=== PATIENT | male | born 1965 | race Caucasian/White ===

== ENCOUNTER 2020-01-17 11:11 | Inpatient (IN) | payer MEDICARE ==
--- NOTE | 2020-01-17 11:19 | ERPHSYRPT ---
- History of Present Illness Time Seen by Provider: 01/17/20 11:19 Historian: patient Exam Limitations: clinical condition Physician History: This is a 54-year-old white male patient with a history of cerebral palsy arrhythmia coronary disease multiple orthopedic procedures and history of ileus in the past. He has frequent fecal stasis as well. Patient states that he was fine until this morning when he began having sudden onset of abdominal pain with retching and vomiting. Patient was seen approximately 9 days ago at [facility]. Symptoms were similar. Patient was found to have a partial distal small bowel obstruction. The appendix and gallbladder within normal limits on the CAT scan dated 01/08/2020 at that facility. Patient's symptoms resolved with nasogastric tube decompression and bowel rest. Patient does self catheterize himself. Patient was also diagnosed with a urinary tract infection at time and has been taking Cipro for that urinary tract infection. Timing/Duration: today Activities at Onset: none Quality: cramping Abdominal Pain Onset Location: generalized abdomen Pain Radiation: no radiation Severity of Pain-Max: moderate Severity of Pain-Current: moderate Modifying Factors: Improves With: vomiting Associated Symptoms: nausea, vomiting Previous symptoms: same symptoms as today, recently seen, recent hospitalization, recently treated Allergies/Adverse Reactions: diazepam [From Valium] Allergy (Verified 01/17/20 11:46) Penicillins Allergy (Verified 01/17/20 11:46) Home Medications: Sulfamethoxazole/Trimethoprim [Bactrim Ds Tablet] 0.5 each PO BID 11/26/13 [History] Mirabegron [Myrbetriq] 50 mg PO DAILY 11/27/13 [History] Desmopressin Acetate [Ddavp] 0.2 mg PO HS 01/17/20 [History] Omeprazole 40 mg PO DAILY 01/17/20 [History] Solifenacin Succinate 10 mg PO DAILY 01/17/20 [History] Spironolactone 25 mg PO DAILY 01/17/20 [History] Tamsulosin HCl 0.4 mg PO DAILY 01/17/20 [History] Tizanidine HCl 4 mg PO DAILY 01/17/20 [History] Hx Tetanus, Diphtheria Vaccination/Date Given: Yes Hx Influenza Vaccination/Date Given: No Hx Pneumococcal Vaccination/Date Given: No Travel Risk - International Travel Have you traveled outside of the country in past 3 weeks: No - Coronavirus Screening Are you exhibiting any of the following symptoms?: No Close contact with a COVID-19 positive Pt in past 14-21 Days: No - Review of Systems Constitutional: No Symptoms Eyes: No Symptoms Ears, Nose, & Throat: No Symptoms Respiratory: No Symptoms Cardiac: No Symptoms Abdominal/Gastrointestinal: Abdominal Pain, Vomiting Genitourinary Symptoms: No Symptoms Musculoskeletal: No Symptoms Skin: No Symptoms Neurological: No Symptoms Psychological: No Symptoms Endocrine: No Symptoms Hematologic/Lymphatic: No Symptoms Immunological/Allergic: No Symptoms All Other Systems: Reviewed and Negative - Past Medical History Neurological History: Migraines, Seizures ENT History: Glaucoma Cardiac History: Arrhythmia, Myocardial Infarction ([place]) Respiratory History: Pneumonia Endocrine Medical History: No Pertinent History Musculoskeletal History: Arthritis GI Medical History: Esophageal Disorder, GERD, Ulcer History: Other Psycho-Social History: Anxiety, Depression, Panic Disorder Male Reproductive Disorders: Prostate Problems Other Medical History: cerabral palsy, diff urinating - Past Surgical History Past Surgical History: Yes Neuro Surgical History: No Pertinent History Cardiac: No Pertinent History Respiratory: No Pertinent History Gastrointestinal: No Pertinent History Genitourinary: No Pertinent History Musculoskeletal: Orthopedic Surgery Male Surgical History: No Pertinent History Other Surgical History: 49 corrective surgeries, 5 hip surgergies,legs feet ankles rt hand surgeries,tonsils - Social History Smoking Status: Never smoker Exposure to second hand smoke: Yes Drug Use: none Patient Lives Alone: Yes - Nursing Vital Signs Nursing Vital Signs: Initial Vital Signs Temperature 98.1 F 01/17/20 11:25 Pulse Rate 84 01/17/20 11:25 Blood Pressure 140/112 01/17/20 11:25 O2 Sat by Pulse Oximetry 94 L 01/17/20 11:25 Pain Scale Pain Intensity 8 - Physical Exam General Appearance: moderate distress, alert, anxiety Eye Exam: PERRL/EOMI, eyes nml inspection Ears, Nose, Throat Exam: normal ENT inspection, moist mucous membranes Neck Exam: normal inspection, non-tender, supple, full range of motion Respiratory Exam: normal breath sounds, lungs clear, airway intact, No chest tenderness, No respiratory distress Cardiovascular Exam: regular rate/rhythm, normal heart sounds, normal peripheral pulses Gastrointestinal/Abdomen Exam: soft, normal bowel sounds, No tenderness Rectal Exam: not done Back Exam: normal inspection, normal range of motion, No CVA tenderness, No vertebral tenderness Extremity Exam: normal inspection, normal range of motion, pelvis stable Neurologic Exam: alert, oriented x 3, cooperative, 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 tested Skin Exam: normal color, warm, dry Lymphatic Exam: adenopathy SpO2 Interpretation: normal - Course Nursing assessment & vital signs reviewed: Yes Ordered Tests: Active Orders 24 hr Category Date Time Status IV Insertion STAT Care 01/17/20 11:30 Active NG to Suction (Insertion) ROUTINE Care 01/17/20 11:39 Active ABDOMEN AND PELVIS W/0 CONTRAS [CT] Stat Exams 01/17/20 11:39 Completed AMYLASE Stat Lab 01/17/20 11:30 Completed CBC W DIFF Stat Lab 01/17/20 11:30 Completed CMP Stat Lab 01/17/20 11:30 Completed CULTURE,URINE Stat Lab 01/17/20 12:33 Received LIPASE Stat Lab 01/17/20 11:30 Completed Lactic Acid Stat Lab 01/17/20 11:30 Completed Lactic Acid Stat Lab 01/17/20 13:42 Received UA W/RFX UR CULTURE Stat Lab 01/17/20 12:33 Completed Transfer Order Routine Transfer 01/17/20 Ordered Medication Summary Discontinued Medications Generic Name Dose Route Start Last Admin Trade Name Freq PRN Reason Stop Dose Admin Famotidine 40 mg 01/17/20 11:30 01/17/20 11:47 Pepcid 20 Mg Vial IV 01/17/20 11:31 40 mg STAT ONE Administration Famotidine Confirm 01/17/20 11:42 Pepcid 20 Mg Vial Administered 01/17/20 11:43 Dose 40 mg IV .STK-MED ONE Sodium Chloride 1,000 mls @ 999 mls/hr 01/17/20 11:30 01/17/20 12:56 Sodium Chloride 0.9% 1000 Ml IV 01/17/20 12:30 Infused .Q1H1M STA Infusion Sodium Chloride Confirm 01/17/20 11:42 Sodium Chloride 0.9% 1000 Ml Administered 01/17/20 11:43 Dose 1,000 mls @ ud .ROUTE .STK-MED ONE Ondansetron HCl 4 mg 01/17/20 11:30 01/17/20 11:46 Zofran 4 Mg/2 Ml Vial IV 01/17/20 11:31 4 mg STAT ONE Administration Ondansetron HCl Confirm 01/17/20 11:42 Zofran 4 Mg/2 Ml Vial Administered 01/17/20 11:43 Dose 4 mg .ROUTE .STK-MED ONE Lab/Rad Data: Laboratory Result Diagrams 01/17/20 11:30 01/17/20 11:30 Laboratory Results 01/17/20 01/17/20 01/17/20 Range/Units 12:33 11:30 11:30 WBC (4.0-10.5) K/mm3 RBC (4.1-5.6) M/mm3 Hgb (12.5-18.0) gm/dl Hct (42-50) % MCV (78-100) fl MCH (26-32) pg MCHC (32-36) g/dl RDW (11.5-14.0) % Plt Count (150-450) K/mm3 MPV (7.5-11.0) fl Gran % (36.0-66.0) % Eos # (Auto) (0-0.5) Absolute Lymphs (auto) (1.0-4.6) Absolute Monos (auto) (0.0-1.3) Lymphocytes % (24.0-44.0) % Monocytes % (0.0-12.0) % Eosinophils % (0.00-5.0) % Basophils % (0.0-0.4) % Absolute Granulocytes (1.4-6.9) Basophils # (0-0.4) Sodium 134 L (137-145) mmol/L Potassium 5.1 (3.5-5.1) mmol/L Chloride 106 (98-107) mmol/L Carbon Dioxide 17 L (22-30) mmol/L Anion Gap 16.1 H (5-15) MEQ/L BUN 20 (9-20) mg/dL Creatinine 0.96 (0.66-1.25) mg/dL Estimated GFR > 60.0 ML/MIN Glucose 125 H (74-106) mg/dL Lactic Acid 3.5 H (0.4-2.0) Calcium 9.6 (8.4-10.2) mg/dL Total Bilirubin 0.60 (0.2-1.3) mg/dL AST 31 (17-59) U/L ALT 15 (0-50) U/L Alkaline Phosphatase 65 (38-126) U/L Serum Total Protein 8.2 (6.3-8.2) g/dL Albumin 4.9 (3.5-5.0) g/dL Amylase 51 (30-110) U/L Lipase 12 L (23-300) U/L Urine Color YELLOW (YELLOW) Urine Appearance SLIGHTLY CLOUDY (CLEAR) Urine pH 5.0 (5-6) Ur Specific [place] 1.026 (1.005-1.025) Urine Protein 30 (Negative) Urine Ketones TRACE (NEGATIVE) Urine Blood NEGATIVE (0-5) [place]/ul Urine Nitrite NEGATIVE (NEGATIVE) Urine Bilirubin NEGATIVE (NEGATIVE) Urine Urobilinogen 2 (0-1) mg/dL Ur Leukocyte Esterase SMALL (NEGATIVE) Urine WBC (Auto) 11-15 (0-5) /HPF Urine RBC (Auto) NONE (0-2) /HPF U Epithel Cells (Auto) NONE (FEW) /HPF Urine Bacteria (Auto) RARE (NEGATIVE) /HPF Urine Mucus (Auto) SLIGHT (NEGATIVE) /HPF Urine Culture Reflexed YES (NO) Urine Glucose NEGATIVE (NEGATIVE) mg/dL 01/17/20 Range/Units 11:30 WBC 9.7 (4.0-10.5) K/mm3 RBC 4.96 (4.1-5.6) M/mm3 Hgb 15.4 (12.5-18.0) gm/dl Hct 46.1 (42-50) % MCV 92.9 (78-100) fl MCH 31.0 (26-32) pg MCHC 33.4 (32-36) g/dl RDW 13.5 (11.5-14.0) % Plt Count 246 (150-450) K/mm3 MPV 12.4 H (7.5-11.0) fl Gran % 87.0 H (36.0-66.0) % Eos # (Auto) 0.01 (0-0.5) Absolute Lymphs (auto) 0.80 L (1.0-4.6) Absolute Monos (auto) 0.42 (0.0-1.3) Lymphocytes % 8.2 L (24.0-44.0) % Monocytes % 4.3 (0.0-12.0) % Eosinophils % 0.1 (0.00-5.0) % Basophils % 0.4 (0.0-0.4) % Absolute Granulocytes 8.46 H (1.4-6.9) Basophils # 0.04 (0-0.4) Sodium (137-145) mmol/L Potassium (3.5-5.1) mmol/L Chloride (98-107) mmol/L Carbon Dioxide (22-30) mmol/L Anion Gap (5-15) MEQ/L BUN (9-20) mg/dL Creatinine (0.66-1.25) mg/dL Estimated GFR ML/MIN Glucose (74-106) mg/dL Lactic Acid (0.4-2.0) Calcium (8.4-10.2) mg/dL Total Bilirubin (0.2-1.3) mg/dL AST (17-59) U/L ALT (0-50) U/L Alkaline Phosphatase (38-126) U/L Serum Total Protein (6.3-8.2) g/dL Albumin (3.5-5.0) g/dL Amylase (30-110) U/L Lipase (23-300) U/L Urine Color (YELLOW) Urine Appearance (CLEAR) Urine pH (5-6) Ur Specific [place] (1.005-1.025) Urine Protein (Negative) Urine Ketones (NEGATIVE) Urine Blood (0-5) [place]/ul Urine Nitrite (NEGATIVE) Urine Bilirubin (NEGATIVE) Urine Urobilinogen (0-1) mg/dL Ur Leukocyte Esterase (NEGATIVE) Urine WBC (Auto) (0-5) /HPF Urine RBC (Auto) (0-2) /HPF U Epithel Cells (Auto) (FEW) /HPF Urine Bacteria (Auto) (NEGATIVE) /HPF Urine Mucus (Auto) (NEGATIVE) /HPF Urine Culture Reflexed (NO) Urine Glucose (NEGATIVE) mg/dL - Progress Progress: improved, pain not gone completely, re-examined Progress Note: 01/17/20 13:43 CAT scan of the abdomen and pelvis shows abundant colonic stool consistent with constipation. Medical screening exam: This patient has been seen in the emergency department twice in the last 8 to 10 days requiring a hospitalization January 07 through January 09. Symptoms are the same including intractable vomiting and partial small bowel obstruction. CAT scan today does not show any obstruction per se but is effectively, partially obstructed with an abundant amount of colonic stool consistent with constipation. Patient will be admitted to Dr. Styles. I discussed the patient history, condition, physical findings, laboratory work-up and x-ray findings with him. Patient will be admitted with NG tube to low intermittent wall suction, IV hydration soapsuds enemas and antiemetics. Counseled pt/family regarding: lab results, diagnosis, rad results - Departure Departure Disposition: In-patient Admission Clinical Impression: Ileus, Constipation, Intractable vomiting Condition: Stable Critical Care Time: No Referrals: BRAIN CRUZ MD [ACTIVE STAFF] -
[2020-01-17] MEDS ORDERED: Sodium Chloride 0.9% 1000 ML 1,000 ML IV STA (11:30)
[2020-01-17] MEDS ORDERED: Zofran 4 MG/2 ML VIAL IV ONE (11:30)
[2020-01-17] MEDS ORDERED: Pepcid 20 MG VIAL IV ONE ×2 (11:30→11:42)
[2020-01-17 11:42] LABS: Absolute Neutrophil Ct (ANC) 8.46 (1.4-6.9); BASOPHIL % 0.4 % (0.0-0.4); Basophil (Absolute #) 0.04 (0-0.4); Eosinophil % 0.1 % (0.00-5.0); Eosinophil (Absolute #) 0.01 (0-0.5); Hematocrit 46.1 % (42-50); Hemoglobin 15.4 gm/dl (12.5-18.0); Lymphocytes % 8.2 % (24.0-44.0); Mean Cell Volume 92.9 fl (78-100); Mean Corpuscular Hgb Concent. 33.4 g/dl (32-36); Mean Platelet Volume 12.4 fl (7.5-11.0); Monocyte (Absolute #) 0.42 (0.0-1.3); Monocytes % 4.3 % (0.0-12.0); Platelet Count 246 K/mm3 (150-450); Red Blood Count 4.96 M/mm3 (4.1-5.6); Red Cell Distribution Width 13.5 % (11.5-14.0); White Blood Count 9.7 K/mm3 (4.0-10.5)
[2020-01-17] MEDS ORDERED: Sodium Chloride 0.9% 1000 ML 1,000 ML ONE (11:42)
[2020-01-17] MEDS ORDERED: Zofran 4 MG/2 ML VIAL ONE (11:42)
[2020-01-17 11:55] LABS: ALBUMIN 4.9 g/dL (3.5-5.0); ALKALINE PHOSPHATASE 65 U/L (38-126); AMYLASE 51 U/L (30-110); ANION GAP 16.1 MEQ/L (5-15); BLOOD UREA NITROGEN 20 mg/dL (9-20); CHLORIDE 106 mmol/L (98-107); Calcium 9.6 mg/dL (8.4-10.2); Carbon Dioxide 17 mmol/L (22-30); Creatinine 1 0.96 mg/dL (0.66-1.25); EST GLOMERULAR FILTRATION RATE > 60.0 ML/MIN; Glucose 125 mg/dL (74-106); LIPASE 12 U/L (23-300); SGOT/AST 31 U/L (17-59); SGPT/ALT 15 U/L (0-50); SODIUM 134 mmol/L (137-145); Total Protein 8.2 g/dL (6.3-8.2)
[2020-01-17 11:57] LABS: Potassium 5.1 mmol/L (3.5-5.1)
[2020-01-17 12:43] LABS: Appearance SLIGHTLY CLOUDY (CLEAR); Bacteria RARE /HPF (NEGATIVE); Bilirubin NEGATIVE (NEGATIVE); Blood NEGATIVE Ery/ul (0-5); Glucose NEGATIVE (NEGATIVE); Ketones TRACE (NEGATIVE); Leukocyte Esterase SMALL (NEGATIVE); Mucus SLIGHT /HPF (NEGATIVE); Nitrite NEGATIVE (NEGATIVE); Protein,Urine Dip 30 (Negative); Specific Gravity 1.026 (1.005-1.025); Urobilinogen 2 mg/dL (0-1)
--- NOTE | 2020-01-17 12:52 | XRAY ---
Exam: CT of the abdomen and pelvis without IV contrast from 01/17/2020. CTDI: 5.09 mGy Comparison: CT of the abdomen and pelvis without IV contrast from 12/15/2010. Indication: 54-year-old male with intractable vomiting. Technique: Non-IV contrast axial images were obtained through the abdomen and pelvis. Reconstructed coronal and sagittal images were created and reviewed. Evidently, patient could not move his right arm. His right arm is down by his side with his elbow flexed such that his forearm, wrist, and hand transverse the upper aspect of the abdomen. Findings: The lung bases appear grossly clear. Minimal posterior dependent atelectatic changes are seen. Assessment of the solid organs is limited without the use of IV contrast. The liver is of normal size and reveals no definite mass or intrahepatic biliary duct distention. The gallbladder is mildly distended and reveals no dense calcifications within it. The spleen is remarkable for a few scattered calcified granulomas. No splenomegaly or splenic mass is seen. The pancreas appears diffusely atrophic. This appears to be new from 12/15/2010. The adrenal glands appear unremarkable. The kidneys are remarkable for a nonobstructing punctate stone within the upper pole of the left kidney on axial images #19 and #20. No other definite renal calculi or hydronephrosis is seen. No definite renal mass is seen. The ureters are of normal diameter and reveal no evidence of ureterolith. No urinary bladder stone is seen. The abdominal aorta appears of normal diameter. No abdominal aortic aneurysm is seen. No abnormal retroperitoneal lymphadenopathy is seen. The abdomen appears mildly protuberant. Mild motion artifact is seen in some of the images through the upper abdomen. No bowel containing ventral hernia or free intraperitoneal air is seen. Scattered stool is seen throughout the colon, the largest amount noted within the rectal vault. This is suggestive of constipation. No bowel obstruction is seen. I see no findings of appendicitis within the right lower quadrant. There is no free intraperitoneal fluid. A large fat-containing right inguinal hernia is seen which appears to be largely new from 12/15/2010. This measures about 3.8 cm in width on axial image #67. The urinary bladder appears unremarkable. No enlarged pelvic lymph nodes are seen. The seminal vesicles are normal. The prostate gland is mildly prominent measuring about 5.0 cm in width. The skeleton reveals no acute fracture or aggressive bone lesion. There is slight convexity of the upper lumbar spine toward the right. The sagittal images reveal bilateral spondylolysis at L5 with only slight anterior subluxation of L5 over S1. The lumbar interspace heights are well-maintained. Impression: 1. Abundant colonic stool is seen consistent with constipation. The largest amount of stool is seen within the rectal vault which measures 4.8 cm in width on axial image #62. I do not see any findings of bowel obstruction, free intraperitoneal air, or free intraperitoneal fluid. 2. There appears to be some mild diffuse atrophy of the pancreas. Correlate clinically. 3. Stable punctate stone within the upper pole of the left kidney without evidence of obstructive uropathy. The ureters and urinary bladder appear unremarkable. 4. There is at least a moderate-sized fat-containing right inguinal hernia which is new. No bowel containing hernia is seen. 5. The prostate gland appears borderline enlarged. 6. Bilateral spondylolysis of L5 with only minimal anterior subluxation of L5 over S1. 7. No other acute process is seen within the abdomen or pelvis.
--- NOTE | 2020-01-17 14:56 | XRAY ---
Exam: AP upright portable chest film from 01/17/2020. Comparison: AP portable chest film from 04/25/2012. Indication: 54-year-old male with NG tube placement. Findings: NG tube is seen with the tip pointing inferiorly against the greater curvature aspect of the distal body/proximal antrum of the stomach. The gap marker is projected over the gastric air bubble. The transverse heart size appears normal. The lungs are adequately inflated. I cannot exclude some minimal plate atelectasis at the right lung base. Otherwise, the lung anderson appear clear. No pneumothorax, vascular congestion, or pleural fluid is seen. No acute osseous process is seen. There is mild elevation of the humeral head of each shoulder with respect to each glenoid, more on the right than left. Consider chronic rotator cuff disease. Impression: 1. NG tube has been placed with the tip pointing inferiorly against the greater curvature aspect of the stomach. The gap marker of the distal NG tube is projected over the gastric air shadow as well. This would appear to be in satisfactory position. 2. No acute cardiopulmonary disease is seen.
[2020-01-17] MEDS ORDERED: FEVERALL 650 MG PR PRN (15:16)
[2020-01-17] MEDS ORDERED: Zofran 4 MG/2 ML VIAL IV PRN (15:16)
--- NOTE | 2020-01-17 16:38 | XRAY ---
Exam: AP portable chest film from 3:51 PM on 01/17/2020. Comparison: AP portable chest film from 01/17/2020. Indication: NG tube placement check. Findings: The NG tube has been advanced. The NG tube reveals 3 separate loops within the stomach lumen. The NG tube tip is pointing distally along the greater curvature aspect of the antrum of the stomach. The heart size is normal. The lung anderson are essentially clear. There is mild convexity of the thoracolumbar junction toward the right. Some colonic stool is seen within the right upper quadrant. The overall visualized bowel gas pattern is nonspecific. Impression: 1. The NG tube has been advanced. 3 separate loops of the NG tube within the stomach are seen with the tip pointing distally along the greater curvature aspect of the antrum of the stomach. 2. No acute cardiopulmonary disease is seen.
[2020-01-17] MEDS: Sodium Chloride 0.9% 1000 ML 1,000 ML IV SCH (16:48)
[2020-01-17] MEDS ORDERED: Phenergan 25 MG INJ IV PRN (16:49)
[2020-01-17] MEDS ORDERED: Sodium Chloride 0.9% 500 ML 500 ML IV ONE (19:59)
[2020-01-17] MEDS ORDERED: Levofloxacin 500MG/100ML D5W 500 MG/100 ML BAG IV SCH (22:00)
[2020-01-18] MEDS: Sodium Chloride 0.9% 1000 ML 1,000 ML IV SCH (00:16)
[2020-01-18 06:05] LABS: Hematocrit 42.1 % (42-50); Hemoglobin 13.8 gm/dl (12.5-18.0); Mean Cell Volume 94.6 fl (78-100); Mean Corpuscular Hgb Concent. 32.8 g/dl (32-36); Mean Platelet Volume 12.3 fl (7.5-11.0); Platelet Count 220 K/mm3 (150-450); Red Blood Count 4.45 M/mm3 (4.1-5.6); Red Cell Distribution Width 13.5 % (11.5-14.0); White Blood Count 7.5 K/mm3 (4.0-10.5)
[2020-01-18 06:23] LABS: ALBUMIN 3.7 g/dL (3.5-5.0); ALKALINE PHOSPHATASE 60 U/L (38-126); ANION GAP 10.4 MEQ/L (5-15); BLOOD UREA NITROGEN 11 mg/dL (9-20); CHLORIDE 110 mmol/L (98-107); Carbon Dioxide 19 mmol/L (22-30); Creatinine 1 0.88 mg/dL (0.66-1.25); EST GLOMERULAR FILTRATION RATE > 60.0 ML/MIN; Glucose 75 mg/dL (74-106); Potassium 4.1 mmol/L (3.5-5.1); SGOT/AST 19 U/L (17-59); SGPT/ALT 12 U/L (0-50); SODIUM 135 mmol/L (137-145); Total Protein 6.3 g/dL (6.3-8.2)
[2020-01-18] MEDS ORDERED: MEDICATION INTERVENTION PO SCH (09:00)
[2020-01-18 09:13] LABS: Slide Review YES
[2020-01-18] MEDS ORDERED: NON-FORMULARY ITEM (Mirabegron [Myrbetriq] 50 MG) PO SCH (10:00)
[2020-01-18] MEDS ORDERED: SOLIFENACIN SUCCINATE 10 MG PO SCH (10:00)
[2020-01-18] MEDS ORDERED: NON-FORMULARY ITEM (Omeprazole [Omeprazole] 40 MG) PO SCH (10:00)
[2020-01-18] MEDS: Dextrose 5% -0.45 NaCl 1000 ML 1,000 ML IV SCH (12:10)
[2020-01-18] MEDS: Miralax Powder 17GM PACKET PO SCH (14:49)
[2020-01-18] MEDS: Flomax 0.4 MG PO SCH (14:50)
[2020-01-18] MEDS: BACTRIM DS TABLET PO SCH ×2 (14:50→21:40)
[2020-01-18] MEDS: Ditropan 5 MG PO SCH ×2 (14:50→21:40)
[2020-01-18] MEDS: Protonix 40MG Tablet PO SCH (14:51)
[2020-01-18] MEDS: Zanaflex 4 MG PO SCH (14:51)
[2020-01-18] MEDS: MYRBETRIQ PO SCH (14:51)
[2020-01-18] MEDS: Aldactone 25 MG PO SCH (14:56)
[2020-01-18] MEDS: Levofloxacin 500MG/100ML D5W 500 MG/100 ML BAG IV SCH (21:41)
[2020-01-18] MEDS ORDERED: DESMOPRESSIN ACETATE 0.2 MG PO SCH (22:00)
[2020-01-19] MEDS: Dextrose 5% -0.45 NaCl 1000 ML 1,000 ML IV SCH (02:51)
[2020-01-19 06:17] LABS: Hematocrit 42.1 % (42-50); Hemoglobin 13.8 gm/dl (12.5-18.0); Mean Cell Volume 96.1 fl (78-100); Mean Corpuscular Hemoglobin 31.5 pg (26-32); Mean Corpuscular Hgb Concent. 32.8 g/dl (32-36); Mean Platelet Volume 12.2 fl (7.5-11.0); Platelet Count 227 K/mm3 (150-450); Red Blood Count 4.38 M/mm3 (4.1-5.6); Red Cell Distribution Width 13.8 % (11.5-14.0); White Blood Count 4.9 K/mm3 (4.0-10.5)
[2020-01-19 06:26] LABS: ALBUMIN 3.6 g/dL (3.5-5.0); ALKALINE PHOSPHATASE 54 U/L (38-126); ANION GAP 9.6 MEQ/L (5-15); BLOOD UREA NITROGEN 9 mg/dL (9-20); CHLORIDE 109 mmol/L (98-107); Calcium 8.9 mg/dL (8.4-10.2); Carbon Dioxide 22 mmol/L (22-30); Creatinine 1 0.95 mg/dL (0.66-1.25); EST GLOMERULAR FILTRATION RATE > 60.0 ML/MIN; Glucose 115 mg/dL (74-106); Potassium 4.4 mmol/L (3.5-5.1); SGOT/AST 16 U/L (17-59); SGPT/ALT 11 U/L (0-50); SODIUM 135 mmol/L (137-145); Total Protein 6.2 g/dL (6.3-8.2)
[2020-01-19 08:31] LABS: Eosinophil 2 % (0.00-3.0); Lymphocytes 30 % (24-44); Monocyte 13 % (0.0-12.0); Neutrophils 55 % (36.-66.); Total Cells Counted 100
[2020-01-19 08:32] LABS: Platelet Estimate NORMAL (NORMAL)
[2020-01-19] MEDS: Aldactone 25 MG PO SCH (12:07)
[2020-01-19] MEDS: Ditropan 5 MG PO SCH ×2 (12:07→21:50)
[2020-01-19] MEDS: BACTRIM DS TABLET PO SCH ×2 (12:07→21:49)
[2020-01-19] MEDS: Zanaflex 4 MG PO SCH (12:07)
[2020-01-19] MEDS: Protonix 40MG Tablet PO SCH (12:07)
[2020-01-19] MEDS: Flomax 0.4 MG PO SCH (12:07)
[2020-01-19] MEDS: Miralax Powder 17GM PACKET PO SCH (12:07)
[2020-01-19] MEDS: MYRBETRIQ PO SCH (12:21)
[2020-01-19] MEDS: Levofloxacin 500MG/100ML D5W 500 MG/100 ML BAG IV SCH (21:51)
[2020-01-20] MEDS: Miralax Powder 17GM PACKET PO SCH (09:20)
[2020-01-20] MEDS: Protonix 40MG Tablet PO SCH (09:21)
[2020-01-20] MEDS: Ditropan 5 MG PO SCH (09:21)
[2020-01-20] MEDS: Flomax 0.4 MG PO SCH (09:21)
[2020-01-20] MEDS: BACTRIM DS TABLET PO SCH (09:22)
[2020-01-20] MEDS: Zanaflex 4 MG PO SCH (09:22)
[2020-01-20] MEDS: Aldactone 25 MG PO SCH (09:22)
[2020-01-20] MEDS: MYRBETRIQ PO SCH (09:23)
[2020-01-20 12:30] VITALS: BP 137/80; PULSE 110; O2SAT 96
--- NOTE | 2020-01-20 20:32 | PCM.DS ---
Discharge Summary Date of Admission: 01/17/20 14:55 Admitting Physician: GABBY LIRA Primary Care Provider: HEATHER SAENZ Allergies Allergies diazepam [From Valium] Allergy (Verified 01/17/20 11:46) Penicillins Allergy (Verified 01/17/20 11:46) Hospital Summary - Hospital Course Hospital Course: Chief Complaint Diagnosis partial bowel obstruction, constipation Allergies Allergy/AdvReac Type Severity Reaction Status Date / Time diazepam [From Valium] Allergy Verified 01/17/20 11:46 Penicillins Allergy Verified 01/17/20 11:46 Vital Signs (Last 24 hours) Temp Pulse Resp BP Pulse Ox 01/20/20 12:00 98.1 F 110 H 18 137/80 96 01/20/20 06:51 98.2 F 85 20 120/73 98 01/20/20 04:20 98.2 F 89 18 102/74 95 01/19/20 23:51 98.2 F 78 18 88/66 98 Home Medications Medication Instructions Recorded Confirmed Last Taken Type Desmopressin Acetate [Ddavp] 0.2 mg PO HS 01/17/20 01/17/20 01/16/20 History Omeprazole 40 mg PO DAILY 01/17/20 01/17/20 01/17/20 History Solifenacin Succinate 10 mg PO DAILY 01/17/20 01/17/20 01/17/20 History Spironolactone 25 mg PO DAILY 01/17/20 01/17/20 01/17/20 History Tamsulosin HCl 0.4 mg PO DAILY 01/17/20 01/17/20 01/17/20 History Tizanidine HCl 4 mg PO DAILY 01/17/20 01/17/20 01/17/20 History Polyethylene Glycol 3350 [Miralax 1 dose PO BID #1 bottle 01/20/20 Unknown Rx Powder] Current Medications Discontinued Medications Generic Name Dose Route Start Last Admin Trade Name Freq PRN Reason Stop Dose Admin Acetaminophen 650 mg 01/17/20 15:[address] 02/16/20 15:15 Q4H PRN PRN PAIN AND/OR FEVER Famotidine 40 mg 01/17/20 11:30 01/17/20 11:47 Pepcid 20 Mg Vial IV 01/17/20 11:31 40 mg STAT ONE Administration Famotidine Confirm 01/17/20 11:42 Pepcid 20 Mg Vial Administered 01/17/20 11:43 Dose 40 mg IV .STK-MED ONE Sodium Chloride 1,000 mls @ 999 mls/hr 01/17/20 11:30 01/17/20 12:56 Sodium Chloride 0.9% 1000 Ml IV 01/17/20 12:30 Infused .Q1H1M STA Infusion Sodium Chloride Confirm 01/17/20 11:42 Sodium Chloride 0.9% 1000 Ml Administered 01/17/20 11:43 Dose 1,000 mls @ ud .ROUTE .STK-MED ONE Sodium Chloride 1,000 mls @ 75 mls/hr 01/17/20 15:16 01/18/20 00:16 Sodium Chloride 0.9% 1000 Ml IV 02/16/20 15:15 75 mls/hr .[id number] MONA Administration Sodium Chloride 500 mls @ 500 mls/hr 01/17/20 19:59 01/17/20 20:10 Sodium Chloride 0.9% 500 Ml IV 01/17/20 20:58 500 mls/hr .Q1H ONE Administration Levofloxacin/Dextrose 500 mg in 100 mls @ 100 mls/hr 01/17/20 22:00 01/17/20 22:04 Levofloxacin 500mg/100ml D5w IV 02/16/20 21:59 100 mls/hr Q24H10 MONA Administration Levofloxacin/Dextrose 500 mg in 100 mls @ 100 mls/hr 01/18/20 22:00 01/19/20 21:51 Levofloxacin 500mg/100ml D5w IV 02/16/20 21:59 100 mls/hr QPM MONA Administration Dextrose/Sodium Chloride 1,000 mls @ 75 mls/hr 01/18/20 12:15 01/19/20 02:51 Dextrose 5% -0.45 Nacl 1000 Ml IV 02/17/20 12:14 75 mls/hr .[id number] MONA Administration Mirabegron 50 mg 01/18/20 10:00 01/20/20 09:23 Myrbetriq PO 02/17/20 09:59 50 mg DAILY MONA Administration Miscellaneous Information 1 each 01/18/20 09:00 Medication Intervention PO 02/17/20 08:59 .RN TO CHECK ON MONA Ondansetron HCl 4 mg 01/17/20 11:30 01/17/20 11:46 Zofran 4 Mg/2 Ml Vial IV 01/17/20 11:31 4 mg STAT ONE Administration Ondansetron HCl Confirm 01/17/20 11:42 Zofran 4 Mg/2 Ml Vial Administered 01/17/20 11:43 Dose 4 mg .ROUTE .STK-MED ONE Ondansetron HCl 4 mg 01/17/20 15:16 Zofran 4 Mg/2 Ml Vial IV 02/16/20 15:15 Q6H PRN PRN NAUSEA/VOMITING Oxybutynin Chloride 5 mg 01/18/20 10:00 01/20/20 09:21 Ditropan 5 Mg PO 02/17/20 09:59 5 mg BID MONA Administration Pantoprazole Sodium 40 mg 01/18/20 10:00 01/20/20 09:21 Protonix 40mg Tablet PO 02/17/20 09:59 40 mg DAILY MONA Administration Polyethylene Glycol 17 gm 01/18/20 10:00 01/20/20 09:20 Miralax Powder 17gm Packet PO 02/17/20 09:59 17 gm DAILY MONA Administration Promethazine HCl 25 mg 01/17/20 16:49 01/17/20 17:00 Phenergan 25 Mg Inj IV 02/16/20 16:48 25 mg Q6H PRN PRN Administration NAUSEA/VOMITING Spironolactone 25 mg 01/18/20 10:00 01/20/20 09:22 Aldactone 25 Mg PO 02/17/20 09:59 25 mg DAILY MONA Administration Tamsulosin HCl 0.4 mg 01/18/20 10:00 01/20/20 09:21 Flomax 0.4 Mg PO 02/17/20 09:59 0.4 mg DAILY MONA Administration Tizanidine HCl 4 mg 01/18/20 10:00 01/20/20 09:22 Zanaflex 4 Mg PO 02/17/20 09:59 4 mg DAILY MONA Administration Trimethoprim/Sulfamethoxazole 0.5 tab 01/18/20 10:00 01/20/20 09:22 Bactrim Ds Tablet PO 02/17/20 09:59 0.5 tab BID MONA Administration Intake & Output (Last 24 hours) 01/18/20 01/19/20 01/20/20 01/21/20 11:59 11:59 11:59 11:59 Intake Total 1291 4267 2360 720 Output Total 2175 2700 3150 600 Balance -884 1567 790 120 Weight 48.6 kg 48.6 kg Orders (Last 24 hours) Category Date Time Status Discharge Routine Discharge 01/20/20 Ordered Patient Care Notes (Last 24 hours) 01/20/20 17:58 Nursing Note by Kamila Frances patient left with home crematory operator on discharge. Explained discharge information to patient as well as crematory operator. Both verbalize understanding and have no questions at time of discharge Initialized on 01/20/20 17:58 - END OF NOTE 01/20/20 12:55 Nursing Note by Sanaz Mcdowell FAXED DISCHARGE RECORDS TO [facility] 01/20/2020 @ [facility]. Initialized on 01/20/20 12:55 - END OF NOTE 01/20/20 09:53 Case Management Note by Mary Valentin PATIENT SET UP WITH [facility]. HE DENIES ANY OTHER NEEDS REGARDING DC AT THIS TIME. PATIENT PLANS TO RETURN HOME TO PRIOR LEVEL OF FUNCTIONING Initialized on 01/20/20 09:53 - END OF NOTE - Vitals & Intake/Output Vital Signs: Vital Signs Temperature 98.1 F 01/20/20 12:00 Pulse Rate 110 H 01/20/20 12:00 Respiratory Rate 18 01/20/20 12:00 Blood Pressure 137/80 01/20/20 12:00 O2 Sat by Pulse Oximetry 96 01/20/20 12:00 Intake & Output: Intake & Output 01/18/20 01/19/20 01/20/20 01/21/20 11:59 11:59 11:59 11:59 Intake Total 1291 4267 2360 720 Output Total 2175 2700 3150 600 Balance -884 1567 790 120 Weight 48.6 kg 48.6 kg - Lab Result Diagrams: 01/19/20 05:20 01/19/20 05:20 Micro Results-Entire Visit: Microbiology 01/17/20 12:33 Urine Culture - Final Urine, Void NO GROWTH 01/17/20 20:30 Blood Culture - Preliminary Blood NO GROWTH TO DATE - Procedures and Test Procedures and Tests throughout Hospitalization: Therapy Orders & Screens 01/17/20 17:49 ST Screen per Nursing Assess ONCE Comment: Protocol Order Physician Instructions: Greater than [address] Admission Screening Reason For Exam: Triggered on Admission Diagnosis: partial bowel obstruction, constipation CVA/Dyshpagia/Aphasia: No Cognitive Deficits: No Dehydration/Nutrition Deficit: No Reflux: Yes Oral-Motor Difficulties: Yes Pneumonia: No Prison Resident: No Total Points: 6 Discharge Exam General Appearance: no apparent distress, alert Neurologic Exam: alert, oriented x 3, cooperative, normal mood/affect, nml cerebellar function, sensation nml, No motor deficits Eye Exam: PERRL, EOMI, eyes nml inspection Ears, Nose, Throat Exam: normal ENT inspection, pharynx normal, moist mucous membranes Neck Exam: normal inspection, non-tender, supple, full range of motion Respiratory Exam: normal breath sounds, lungs clear, No respiratory distress Cardiovascular Exam: regular rate/rhythm, normal heart sounds Gastrointestinal/Abdomen Exam: soft, No tenderness, No mass Male Genitalia Exam: deferred Rectal Exam: deferred Back Exam: normal inspection, normal range of motion, No CVA tenderness, No vertebral tenderness Extremity Exam: normal inspection, normal range of motion Skin Exam: normal color, warm, dry Final Diagnosis/Problem List - Final Discharge Diagnosis/Problem (1) Constipation Status: Resolved Code(s): K59.00 - CONSTIPATION, UNSPECIFIED (2) Ileus Status: Resolved Code(s): K56.7 - ILEUS, UNSPECIFIED - Discharge Discharge Date: 01/20/20 Disposition: Home, Self-Care Condition: Stable Prescriptions: New Polyethylene Glycol 3350 [Miralax Powder] 1 dose PO BID #1 bottle Continue Sulfamethoxazole/Trimethoprim [Bactrim Ds Tablet] 0.5 each PO BID Mirabegron [Myrbetriq] 50 mg PO DAILY Tizanidine HCl 4 mg PO DAILY Spironolactone 25 mg PO DAILY Omeprazole 40 mg PO DAILY Tamsulosin HCl 0.4 mg PO DAILY Solifenacin Succinate 10 mg PO DAILY Desmopressin Acetate [Ddavp] 0.2 mg PO HS Instructions: Small Bowel Obstruction (DC) Additional Instructions: [facility] WILL BE IN CONTACT TO ARRANGE A VISIT- THEIR PHONE NUMBER IS [phone] Follow up with: HEATHER SAENZ [Primary Care Provider] - 01/22/20 10:30 am (DR Elmer SAENZ APPOINTMENT AT [facility])
== END 2020-01-20 17:42 | disposition home or self-care (01) | DRG 392 ==
LOC: ED 11:11 → MED SURG 14:55
PROVIDERS: ADMIT General Practice; ATTEND General Practice
DX: K59.00 Constipation, unspecified (principal); K56.7 Ileus, unspecified; N39.0 Urinary tract infection, site not specified; I13.0 Hypertensive heart and chronic kidney disease with heart failure and stage 1 through stage 4 chronic kidney disease, or unspecified chronic kidney disease; Z79.899 Other long term (current) drug therapy; G80.9 Cerebral palsy, unspecified; E86.0 Dehydration; K21.9 Gastro-esophageal reflux disease without esophagitis; N18.9 Chronic kidney disease, unspecified; I50.9 Heart failure, unspecified; M62.81 Muscle weakness (generalized); N42.9 Disorder of prostate, unspecified
CPT/HCPCS: 36000; 36415; 71045; 74176; 80053; 81001; 82150; 82962; 83605; 83690; 85025; 85027; 87040; 87086; 96360; 96374; 96375; 99284; J1956; J2405; J2550; A9270-GY

== ENCOUNTER 2023-04-11 11:02 | Observation (INO) | payer MEDICARE ==
[2023-04-11] MEDS ORDERED: Sodium Chloride 0.9% 1000 ML 1,000 ML IV SCH (11:15)
--- NOTE | 2023-04-11 11:20 | ERPHSYRPT ---
- History of Present Illness Time Seen by Provider: 04/11/23 11:16 Source: patient Exam Limitations: no limitations Physician History: Patient is a 57-year-old male history of cerebral palsy presents to our ED for evaluation of blurred vision. Patient states blurred vision started upon awakening this morning approximately 2 to 3 hours ago. Patient called his primary care doctor. Patient was on his way to [facility] when he realized he rolled her to select to continue his course. Patient turned around and came to our ED instead. Patient states that his blurred vision has gradually improved. He had no other associated symptomology. Patient is not di abetic. Accu-Chek in our ED was 101. No associated chest pain or shortness of breath. No nausea vomiting or diaphoresis. No weakness no syncope no seizure. Patient's caregivers at the bedside. They voiced no other complaints or concerns at this time. Portions of this note were created with voice recognition technology. There may be grammatical, spelling, punctuation or sound alike errors Timing/Duration: today Severity: moderate Modifying Factors: Improves With: nothing Associated Symptoms: denies symptoms Allergies/Adverse Reactions: diazepam [From Valium] Allergy (Verified 04/11/23 11:26) Penicillins Allergy (Verified 04/11/23 11:26) Home Medications: Omeprazole 40 mg PO DAILY 01/17/20 [History] Spironolactone 25 mg PO DAILY 01/17/20 [History] Escitalopram Oxalate [Lexapro] 10 mg PO DAILY 04/11/23 [History] Latanoprost [Xalatan] 1 drop OP HS 04/11/23 [History] Smz/Tmp Ds Tablet [Bactrim Ds Tablet] 1 tab PO DAILY 04/11/23 [History] Hx Tetanus, Diphtheria Vaccination/Date Given: Yes Hx Influenza Vaccination/Date Given: No Hx Pneumococcal Vaccination/Date Given: No - Review of Systems Constitutional: No Symptoms, No Fever, No Chills Eyes: No Symptoms Ears, Nose, & Throat: No Symptoms Respiratory: No Symptoms, No Cough, No Dyspnea Cardiac: No Symptoms, No Chest Pain, No Edema, No Syncope Abdominal/Gastrointestinal: No Symptoms, No Abdominal Pain, No Nausea, No Vomiting, No Diarrhea Genitourinary Symptoms: No Symptoms, No Dysuria Musculoskeletal: No Symptoms, No Back Pain, No Neck Pain Skin: No Symptoms, No Rash Neurological: No Symptoms, No Dizziness, No Focal Weakness, No Sensory Changes Psychological: No Symptoms Endocrine: No Symptoms Hematologic/Lymphatic: No Symptoms Immunological/Allergic: No Symptoms All Other Systems: Reviewed and Negative - Past Medical History Pertinent Past Medical History: Yes Neurological History: Migraines, Seizures ENT History: Glaucoma Cardiac History: Arrhythmia, Myocardial Infarction ([place]) Respiratory History: Pneumonia Endocrine Medical History: No Pertinent History Musculoskeletal History: Arthritis GI Medical History: Esophageal Disorder, GERD, Ulcer History: Other Psycho-Social History: Anxiety, Depression, Panic Disorder Male Reproductive Disorders: Prostate Problems Other Medical History: cerabral palsy, diff urinating - Past Surgical History Past Surgical History: Yes Neuro Surgical History: No Pertinent History Cardiac: No Pertinent History Respiratory: No Pertinent History Gastrointestinal: No Pertinent History Genitourinary: No Pertinent History Musculoskeletal: Orthopedic Surgery Male Surgical History: No Pertinent History Other Surgical History: 49 corrective surgeries, 5 hip surgergies,legs feet ank les rt hand surgeries,tonsils - Social History Smoking Status: Never smoker Exposure to second hand smoke: Yes Drug Use: none Patient Lives Alone: Yes - Nursing Vital Signs Nursing Vital Signs: Initial Vital Signs Temperature 98 F 04/11/23 11:13 Pulse Rate 87 04/11/23 11:13 Respiratory Rate 18 04/11/23 11:13 Blood Pressure 153/112 04/11/23 11:13 O2 Sat by Pulse Oximetry 100 04/11/23 11:13 Pain Scale Pain Intensity 0 - Physical Exam General Appearance: no apparent distress, alert Eye Exam: PERRL/EOMI, eyes nml inspection Ears, Nose, Throat Exam: normal ENT inspection, TMs normal, pharynx normal, moist mucous membranes Neck Exam: normal inspection, non-tender, supple, full range of motion Respiratory Exam: normal breath sounds, lungs clear, airway intact, No respiratory distress Cardiovascular Exam: regular rate/rhythm, normal heart sounds, normal peripheral pulses Gastrointestinal/Abdomen Exam: soft, normal bowel sounds, other (intact suprapubic catheter), No tenderness, No mass Back Exam: normal inspection, normal range of motion, No CVA tenderness, No vertebral tenderness Extremity Exam: normal inspection, normal range of motion, pelvis stable, other (Extremity contractures due to cerebral palsy) Neurologic Exam: alert, oriented x 3, cooperative, normal mood/affect, sensation nml, No motor deficits Skin Exam: normal color, warm, dry, No rash Lymphatic Exam: No adenopathy SpO2 Interpretation: normal SpO2: 98 O2 Delivery: Room Air - Course Nursing assessment & vital signs reviewed: Yes EKG Interpreted by Me: RATE - CT Exams Head CT Interpretation: Tele-radiologist Report (Nonacute senile brain) Ordered Tests: Active Orders 24 hr Category Date Time Status Public Health Technician STAT Care 04/11/23 11:07 Active EKG-ER Only STAT Care 04/11/23 11:06 Active IV Insertion STAT Care 04/11/23 11:06 Active Pulse Oximetry (ED) STAT Care 04/11/23 11:06 Active HEAD WITHOUT CONTRAST [CT] Stat Exams 04/11/23 11:06 Completed CBC W DIFF Stat Lab 04/11/23 11:39 Completed CMP Stat Lab 04/11/23 11:39 Completed POCT GLUCOSE Stat Lab 04/11/23 11:12 Completed POCT GLUCOSE Stat Lab 04/11/23 11:31 Received TROPONIN Q4H Lab 04/11/23 11:39 Completed TROPONIN Q4H Lab 04/11/23 15:15 Ordered TROPONIN Q4H Lab 04/11/23 19:15 Ordered Transfer Order Routine Transfer 04/11/23 Ordered Medication Summary Generic Name Dose Route Start Last Admin Trade Name Freq PRN Reason Stop Dose Admin Sodium Chloride 1,000 mls @ 50 mls/hr 04/11/23 11:15 04/11/23 11:36 Sodium Chloride 0.9% 1000 Ml IV 05/11/23 11:14 50 mls/hr .Q20H MONA Administration Discontinued Medications Generic Name Dose Route Start Last Admin Trade Name Freq PRN Reason Stop Dose Admin Aspirin 324 mg 04/11/23 13:00 Aspirin 81 Mg Tab.Chew PO 04/11/23 13:01 STAT ONE Lab/Rad Data: Laboratory Result Diagrams 04/11/23 11:39 04/11/23 11:39 Laboratory Results 04/11/23 04/11/23 04/11/23 Range/Units Unknown 11:39 11:39 WBC (4.0-10.5) x10^3/uL RBC (4.1-5.6) x10^6/uL Hgb (12.5-18.0) g/dL Hct (42-50) % MCV (78-100) fL MCH (26-32) pg MCHC (32-36) g/dL RDW (11.5-14.0) % Plt Count (150-450) x10^3/uL MPV (7.5-11.0) fL Gran % (36.0-66.0) % Immature Gran % (Auto) (0.00-0.4) % Nucleat RBC Rel Count (0.00-0.1) % Eos # (Auto) (0-0.5) x10^3/uL Immature Gran # (Auto) (0.00-0.03) x10^3u/L Absolute Lymphs (auto) (1.0-4.6) x10^3/uL Absolute Monos (auto) (0.0-1.3) x10^3/uL Absolute Nucleated RBC (0.00-0.01) x10^3u/L Lymphocytes % (24.0-44.0) % Monocytes % (0.0-12.0) % Eosinophils % (0.00-5.0) % Basophils % (0.0-0.4) % Absolute Granulocytes (1.4-6.9) x10^3/uL Basophils # (0-0.4) x10^3/uL Sodium 138 (137-145) mmol/L Potassium 4.3 (3.5-5.1) mmol/L Chloride 107 (98-107) mmol/L Carbon Dioxide 21 L (22-30) mmol/L Anion Gap 14.2 (5-15) MEQ/L BUN 21 H (9-20) mg/dL Creatinine 0.96 (0.66-1.25) mg/dL Estimated GFR 92.8 ML/MIN Glucose 96 (74-106) mg/dL POC Glucometer (74 to 106) mg/dL Calcium 9.3 (8.4-10.2) mg/dL Total Bilirubin 0.50 (0.2-1.3) mg/dL AST 24 (17-59) U/L ALT 27 (0-50) U/L Alkaline Phosphatase 93 (38-126) U/L Troponin I < 0.012 (0.000-0.034) ng/mL Serum Total Protein 8.0 (6.3-8.2) g/dL Albumin 4.6 (3.5-5.0) g/dL Influenza Type A Ag NEGATIVE (NEGATIVE) Influenza Type B Ag NEGATIVE (NEGATIVE) RSV (PCR) POSITIVE (NEGATIVE) SARS-CoV-2 (PCR) NEGATIVE (NEGATIVE) 04/11/23 04/11/23 Range/Units 11:39 11:12 WBC 7.4 (4.0-10.5) x10^3/uL RBC 5.20 (4.1-5.6) x10^6/uL Hgb 15.9 (12.5-18.0) g/dL Hct 48.4 (42-50) % MCV 93.1 (78-100) fL MCH 30.6 (26-32) pg MCHC 32.9 (32-36) g/dL RDW 13.0 (11.5-14.0) % Plt Count 237 (150-450) x10^3/uL MPV 12.1 H (7.5-11.0) fL Gran % 64.1 (36.0-66.0) % Immature Gran % (Auto) 0.3 (0.00-0.4) % Nucleat RBC Rel Count 0.0 (0.00-0.1) % Eos # (Auto) 0.19 (0-0.5) x10^3/uL Immature Gran # (Auto) 0.02 (0.00-0.03) x10^3u/L Absolute Lymphs (auto) 1.56 (1.0-4.6) x10^3/uL Absolute Monos (auto) 0.82 (0.0-1.3) x10^3/uL Absolute Nucleated RBC 0.00 (0.00-0.01) x10^3u/L Lymphocytes % 21.1 L (24.0-44.0) % Monocytes % 11.1 (0.0-12.0) % Eosinophils % 2.6 (0.00-5.0) % Basophils % 0.8 (0.0-0.4) % Absolute Granulocytes 4.74 (1.4-6.9) x10^3/uL Basophils # 0.06 (0-0.4) x10^3/uL Sodium (137-145) mmol/L Potassium (3.5-5.1) mmol/L Chloride (98-107) mmol/L Carbon Dioxide (22-30) mmol/L Anion Gap (5-15) MEQ/L BUN (9-20) mg/dL Creatinine (0.66-1.25) mg/dL Estimated GFR ML/MIN Glucose (74-106) mg/dL POC Glucometer 101 (74 to 106) mg/dL Calcium (8.4-10.2) mg/dL Total Bilirubin (0.2-1.3) mg/dL AST (17-59) U/L ALT (0-50) U/L Alkaline Phosphatase (38-126) U/L Troponin I (0.000-0.034) ng/mL Serum Total Protein (6.3-8.2) g/dL Albumin (3.5-5.0) g/dL Influenza Type A Ag (NEGATIVE) Influenza Type B Ag (NEGATIVE) RSV (PCR) (NEGATIVE) SARS-CoV-2 (PCR) (NEGATIVE) - Progress Progress: improved Progress Note: Case discussed with neurologist who advises admission for MRI. Dr. Rodriguez discussed the case and management with neurologist at 12:30 PM. 04/11/23 12:34 Discussed with hospitalist who accepts admission to [facility] at 12:49 PM 04/11/23 12:51 Patient is a 57--year-old male history of seizures migraine cerebral palsy MRI presents to our ED with bilateral blurred vision and facial numbness. NIH score of 1 patient awoke this morning with symptoms. Symptoms significantly improved upon arrival to our ED. Physical exam consistent with history of CP otherwise unremarkable. CT head shows no acute pathology. Patient is RSV positive. EKG reveals sinus rhythm. CBC CMP nonremarkable. Initial troponin negative. Patient received 324mg of aspirin and normal saline at 75 cc/h Patient will be admitted for further evaluation and treatment including MRI brain. Complexity of problems addressed is high severe exacerbation/threat to bodily function No critical care time Complex of data reviewed and analyzed extensive. Test ordered test reviewed. Results analyzed and correlated clinically. Management discussed with neurologist and hospitalist. Risk of complication and or risk of morbidity/mortality of patient management is high. Patient requires hospitalization/higher level of care for further evaluation and treatment. Patient agrees to admission at [facility] for further evaluation and treatment. Vital stable. Time spent to admit patient is approx imately 20 minutes. Plan of care established for shared decision making. No social determinants of health present impede follow-up. Portions of this note were created with voice recognition technology. There may be grammatical, spelling, punctuation or sound alike errors 04/11/23 13:02 Discussed with : Other Counseled pt/family regarding: lab results, diagnosis, rad results - Departure Departure Disposition: Observation Clinical Impression: Blurred vision, bilateral, Facial numbness, RSV infection, Amaurosis fugax, both eyes Condition: Stable Critical Care Time: No Referrals: MARQUES GUALLPA MD [Primary Care Provider] - Follow up/PCP as directed
--- NOTE | 2023-04-11 11:31 | XRAY ---
Indication: Facial numbness. Blurred vision. Stroke. Multiple contiguous images obtained through the head without contrast. Comparison: None Age-appropriate global atrophy, moderate periventricular degenerative micro-ischemia bilaterally, and prominent lateral ventricles. No acute intracranial hemorrhage, abnormal extra-axial fluid collection, or mass effect. Incidental cavum septum pellucidum. Fourth ventricle is midline. Bony calvarium intact. Visualized paranasal sinuses and mastoid air cells are clear. Impression: Nonacute senile brain.
[2023-04-11] MEDS ORDERED: Sodium Chloride 0.9% 1000 ML 1,000 ML ONE (11:35)
[2023-04-11 11:41] LABS: Absolute Neutrophil Ct (ANC) 4.74 x10^3/uL (1.4-6.9); BASOPHIL % 0.8 % (0.0-0.4); Basophil (Absolute #) 0.06 x10^3/uL (0-0.4); Eosinophil % 2.6 % (0.00-5.0); Eosinophil (Absolute #) 0.19 x10^3/uL (0-0.5); Hematocrit 48.4 % (42-50); Hemoglobin 15.9 g/dL (12.5-18.0); IMMATURE GRAN # 0.02 x10^3u/L (0.00-0.03); IMMATURE GRAN % 0.3 % (0.00-0.4); Lymphocyte (Absolute #) 1.56 x10^3/uL (1.0-4.6); Lymphocytes % 21.1 % (24.0-44.0); Mean Cell Volume 93.1 fL (78-100); Mean Corpuscular Hemoglobin 30.6 pg (26-32); Mean Corpuscular Hgb Concent. 32.9 g/dL (32-36); Mean Platelet Volume 12.1 fL (7.5-11.0); Monocyte (Absolute #) 0.82 x10^3/uL (0.0-1.3); Monocytes % 11.1 % (0.0-12.0); Neutrophil % 64.1 % (36.0-66.0); Platelet Count 237 x10^3/uL (150-450); White Blood Count 7.4 x10^3/uL (4.0-10.5)
[2023-04-11 11:51] LABS: ALBUMIN 4.6 g/dL (3.5-5.0); ANION GAP 14.2 MEQ/L (5-15); BILIRUBIN,TOTAL 0.5 mg/dL (0.2-1.3); Calcium 9.3 mg/dL (8.4-10.2); Creatinine 1 0.96 mg/dL (0.66-1.25); EST GLOMERULAR FILTRATION RATE 92.8 ML/MIN; Potassium 4.3 mmol/L (3.5-5.1)
[2023-04-11 12:21] LABS: INFLUENZA A NEGATIVE (NEGATIVE); INFLUENZA B NEGATIVE (NEGATIVE); SARS-CoV-2 Xpert Express NEGATIVE (NEGATIVE)
[2023-04-11 12:36] LABS: RESPIRATORY SYNCTIAL VIRUS POSITIVE (NEGATIVE)
[2023-04-11] MEDS ORDERED: BABY ASPIRIN 81 MG CHEW PO ONE (13:00)
[2023-04-11] MEDS ORDERED: BABY ASPIRIN 81 MG CHEW ONE (13:02)
--- NOTE | 2023-04-11 13:35 | PCM.HP ---
<MIKE MARIEE - Last Filed: 04/11/23 14:02> History of Present Illness - Chief Complaint Chief Complaint: Blurred vision, facial numbness Date: 04/11/23 History of Present Illness: is a 57 year old male with pmhx of cerebral palsy, migraines, seizures, glaucoma, arrythmia, RI, HTN, arthritis, GERD, anxiety, depression, panic d/o, prostate problems, and gastric ulcer. He is scheduled for surgery on 04/28/23 for gangrene of his colon with GI at [facility]. He has only been taking omeprazole and Bactrim per recommendation of GI per pt. He has not been taking his BP medication. Will request records. He presented to our ED for evaluation of blurred vision and facial numbness. Patient states blurred vision started upon awakening this morning at 7:30 am and lasted about 1.5 hours approximately. Patient states that his blurred vision has gradually improved but still somewhat there. He continues to have facial numbness. He had no other associated symptomology. Patient is not diabetic. Accu-Chek in ED was 101. No associated chest pain or shortness of breath. No nausea vomiting or diaphoresis. No weakness no syncope no seizure. Patient's caregiver at the bedside. She explaines she was on her way to [facility] where his physican's are and there was black ice so she came to this hospital. CT of brain was negative for acute process. MRI of brain was recommended by tele-neurology. ASA 324 mg was gave in ER. - Review of Systems Constitutional: No Fever, No Chills Eyes: No Symptoms, Vision Changes (blurred vision that has resolved) Ears, Nose, & Throat: No Symptoms Respiratory: No Cough, No Short Of Breath Cardiac: No Chest Pain, No Edema, No Syncope Abdominal/Gastrointestinal: No Abdominal Pain, No Nausea, No Vomiting, No Diarrhea Genitourinary Symptoms: No Dysuria Musculoskeletal: No Back Pain, No Neck Pain Skin: No Rash Neurological: Parasthesia (numbness of face), No Dizziness, No Focal Weakness, No Sensory Changes Psychological: No Symptoms Endocrine: No Symptoms Hematologic/Lymphatic: No Symptoms Immunological/Allergic: No Symptoms Medications & Allergies Home Medications: Home Medication List Omeprazole 40 mg PO DAILY 01/17/20 [History Confirmed 04/11/23] Spironolactone 25 mg PO DAILY 01/17/20 [History Confirmed 04/11/23] Escitalopram Oxalate [Lexapro] 10 mg PO DAILY 04/11/23 [History Confirmed 04/11/23] Latanoprost [Xalatan] 1 drop OP HS 04/11/23 [History Confirmed 04/11/23] Smz/Tmp Ds Tablet [Bactrim Ds Tablet] 1 tab PO BID 04/11/23 [History Confirmed 04/11/23] Allergies/Adverse Reactions: Allergies Allergy/AdvReac Type Severity Reaction Status Date / Time diazepam [From Valium] Allergy Verified 04/11/23 11:26 Penicillins Allergy Verified 04/11/23 11:26 - Past Medical History Past Medical History: Yes Neurological History: Migraines, Seizures ENT History: Glaucoma Cardiac History: Arrhythmia, Myocardial Infarction (RI) Respiratory History: Pneumonia Endocrine Medical History: No Pertinent History Musculoskelatal History: Arthritis GI Medical History: Esophageal Disorder, GERD, Ulcer History: Other Pyscho-Social History: Anxiety, Depression, Panic Disorder Male Reproductive Disorders: Prostate Problems Comment: cerabral palsy, diff urinating - Past Surgical History Past Surgical History: Yes Neuro Surgical History: No Pertinent History Cardiac History: No Pertinent History Respiratory Surgery: No Pertinent History GI Surgical History: No Pertinent History Genitourinary Surgical Hx: No Pertinent History Musculskeletal Surgical Hx: Orthopedic Surgery Male Surgical History: No Pertinent History Other Surgical History: 49 corrective surgeries, 5 hip surgergies,legs feet ankles rt hand surgeries,tonsils - Social History Smoking Status: Never smoker Exposure to second hand smoke: Yes Alcohol: None Drug Use: none - Physical Exam Vital Signs: Vital Signs - 24 hr Temp Pulse Resp BP BP Pulse Ox 04/11/23 13:10 98 04/11/23 13:00 88 143/103 04/11/23 12:30 94 H 21 158/107 97 04/11/23 12:00 81 19 143/104 96 04/11/23 11:30 80 22 134/97 95 04/11/23 11:13 98 F 87 18 153/112 100 General Appearance: no apparent distress, alert Neurologic Exam: alert, oriented x 3, cooperative, normal mood/affect, nml cerebellar function, nml station & gait, sensation nml, No motor deficits Eye Exam: PERRL/EOMI, eyes nml inspection Ears, Nose, Throat Exam: normal ENT inspection, TMs normal, pharynx normal, moist mucous membranes Neck Exam: normal inspection, non-tender, supple, full range of motion Respiratory Exam: normal breath sounds, lungs clear, No respiratory distress Cardiovascular Exam: regular rate/rhythm, normal heart sounds, normal peripheral pulses Gastrointestinal/Abdomen Exam: soft, normal bowel sounds, No tenderness, No mass Back Exam: normal inspection, normal range of motion, No CVA tenderness, No vertebral tenderness Extremity Exam: normal inspection, normal range of motion, pelvis stable Skin Exam: normal color, warm, dry, No rash Lymphatic Exam: No adenopathy Results - Labs Lab/Micro Results: Lab Results-Last 24 Hours 04/11/23 04/11/23 04/11/23 Range/Units 11:12 11:39 11:39 WBC 7.4 (4.0-10.5) x10^3/uL RBC 5.20 (4.1-5.6) x10^6/uL Hgb 15.9 (12.5-18.0) g/dL Hct 48.4 (42-50) % MCV 93.1 (78-100) fL MCH 30.6 (26-32) pg MCHC 32.9 (32-36) g/dL RDW 13.0 (11.5-14.0) % Plt Count 237 (150-450) x10^3/uL MPV 12.1 H (7.5-11.0) fL Gran % 64.1 (36.0-66.0) % Immature Gran % (Auto) 0.3 (0.00-0.4) % Nucleat RBC Rel Count 0.0 (0.00-0.1) % Eos # (Auto) 0.19 (0-0.5) x10^3/uL Immature Gran # (Auto) 0.02 (0.00-0.03) x10^3u/L Absolute Lymphs (auto) 1.56 (1.0-4.6) x10^3/uL Absolute Monos (auto) 0.82 (0.0-1.3) x10^3/uL Absolute Nucleated RBC 0.00 (0.00-0.01) x10^3u/L Lymphocytes % 21.1 L (24.0-44.0) % Monocytes % 11.1 (0.0-12.0) % Eosinophils % 2.6 (0.00-5.0) % Basophils % 0.8 (0.0-0.4) % Absolute Granulocytes 4.74 (1.4-6.9) x10^3/uL Basophils # 0.06 (0-0.4) x10^3/uL Sodium 138 (137-145) mmol/L Potassium 4.3 (3.5-5.1) mmol/L Chloride 107 (98-107) mmol/L Carbon Dioxide 21 L (22-30) mmol/L Anion Gap 14.2 (5-15) MEQ/L BUN 21 H (9-20) mg/dL Creatinine 0.96 (0.66-1.25) mg/dL Estimated GFR 92.8 ML/MIN Glucose 96 (74-106) mg/dL POC Glucometer 101 (74 to 106) mg/dL Calcium 9.3 (8.4-10.2) mg/dL Total Bilirubin 0.50 (0.2-1.3) mg/dL AST 24 (17-59) U/L ALT 27 (0-50) U/L Alkaline Phosphatase 93 (38-126) U/L Troponin I (0.000-0.034) ng/mL Serum Total Protein 8.0 (6.3-8.2) g/dL Albumin 4.6 (3.5-5.0) g/dL Influenza Type A Ag (NEGATIVE) Influenza Type B Ag (NEGATIVE) RSV (PCR) (NEGATIVE) SARS-CoV-2 (PCR) (NEGATIVE) 04/11/23 04/11/23 Range/Units 11:39 Unknown WBC (4.0-10.5) x10^3/uL RBC (4.1-5.6) x10^6/uL Hgb (12.5-18.0) g/dL Hct (42-50) % MCV (78-100) fL MCH (26-32) pg MCHC (32-36) g/dL RDW (11.5-14.0) % Plt Count (150-450) x10^3/uL MPV (7.5-11.0) fL Gran % (36.0-66.0) % Immature Gran % (Auto) (0.00-0.4) % Nucleat RBC Rel Count (0.00-0.1) % Eos # (Auto) (0-0.5) x10^3/uL Immature Gran # (Auto) (0.00-0.03) x10^3u/L Absolute Lymphs (auto) (1.0-4.6) x10^3/uL Absolute Monos (auto) (0.0-1.3) x10^3/uL Absolute Nucleated RBC (0.00-0.01) x10^3u/L Lymphocytes % (24.0-44.0) % Monocytes % (0.0-12.0) % Eosinophils % (0.00-5.0) % Basophils % (0.0-0.4) % Absolute Granulocytes (1.4-6.9) x10^3/uL Basophils # (0-0.4) x10^3/uL Sodium (137-145) mmol/L Potassium (3.5-5.1) mmol/L Chloride (98-107) mmol/L Carbon Dioxide (22-30) mmol/L Anion Gap (5-15) MEQ/L BUN (9-20) mg/dL Creatinine (0.66-1.25) mg/dL Estimated GFR ML/MIN Glucose (74-106) mg/dL POC Glucometer (74 to 106) mg/dL Calcium (8.4-10.2) mg/dL Total Bilirubin (0.2-1.3) mg/dL AST (17-59) U/L ALT (0-50) U/L Alkaline Phosphatase (38-126) U/L Troponin I < 0.012 (0.000-0.034) ng/mL Serum Total Protein (6.3-8.2) g/dL Albumin (3.5-5.0) g/dL Influenza Type A Ag NEGATIVE (NEGATIVE) Influenza Type B Ag NEGATIVE (NEGATIVE) RSV (PCR) POSITIVE (NEGATIVE) SARS-CoV-2 (PCR) NEGATIVE (NEGATIVE) Accuchecks Date 04/11/23 Time 11:12 - Radiology Impressions Radiology Exams & Impressions: Radiology Procedures Category Date Time Status HEAD WITHOUT CONTRAST [CT] Stat Exams 04/11/23 11:06 Completed Assessment/Plan (1) Blurred vision, bilateral Current Visit: Yes Status: Acute Assessment & Plan: - Vision has improved but c/o continues abnormal vision changes - CT head 04/11 Impression: Nonacute senile brain. - Neurology consulted in ER and recommended MRI for further evaluation - MRI brain pending - ASA 324 mg gave in ER - Tele - EKG- reviewed - neuro checks Q4 - Neurology recommendations: CBC, CMP, TSH, ESR, CRP, Trop x3, UA Permissive HTN 220/110 If MRI negative restart BP meds PT/OT/Speech ASA 81mg daily Code(s): H53.8 - OTHER VISUAL DISTURBANCES (2) Facial numbness Current Visit: Yes Status: Acute Assessment & Plan: - continued facial numbness Code(s): R20.0 - ANESTHESIA OF SKIN (3) RSV infection Current Visit: Yes Status: Acute Assessment & Plan: - Supportive care Code(s): B33.8 - OTHER SPECIFIED VIRAL DISEASES (4) Anxiety and depression Current Visit: Yes Status: Acute Assessment & Plan: - currently not taking medication Code(s): F41.9 - ANXIETY DISORDER, UNSPECIFIED; F32.A - DEPRESSION, UNSPECIFIED (5) Glaucoma Current Visit: Yes Status: Acute Assessment & Plan: - Continue eye gtts Code(s): H40.9 - UNSPECIFIED GLAUCOMA (6) GERD (gastroesophageal reflux disease) Current Visit: Yes Status: Acute Assessment & Plan: - Continue omeprazole Code(s): K21.9 - GASTRO-ESOPHAGEAL REFLUX DISEASE WITHOUT ESOPHAGITIS (7) Gangrene of colon Current Visit: Yes Status: Acute Assessment & Plan: - Pt reports he has stopped all meds except Bactrim and omeprazole. - Pt explained he was told to stop all other meds in preparation for colon resection surgery 04/28/23 - he has been off all his regular meds for 1 week now. - will request records from GI at [facility] - GI records from 04/06 office visit at [facility] reviewed and pt was supposed to continue home meds- will communicate this with pt and caregiver. - Will resume all home meds, and BP meds if MRI is negative - Spirolactone held due to interaction with Bactriim VTE: SCD's PPI: omeprazole D/C plan 1-2 days Next of kin: Ranjit Melendez ( sibling) [phone] Code(s): K55.049 - ACUTE INFARCTION OF LARGE INTESTINE, EXTENT UNSPECIFIED <ADOLFO MORENO - Last Filed: 04/11/23 21:11> History of Present Illness - Chief Complaint History of Present Illness: is a 57 year old male. - Physical Exam Vital Signs: Vital Signs - 24 hr Temp Pulse Resp BP BP Pulse Ox 04/11/23 19:24 97.6 F 97 H 20 171/93 96 04/11/23 15:25 97.8 F 95 H 18 134/97 94 L 04/11/23 13:22 98 04/11/23 13:10 98 04/11/23 13:00 88 143/103 04/11/23 12:30 94 H 21 158/107 97 04/11/23 12:00 81 19 143/104 96 04/11/23 11:30 80 22 134/97 95 04/11/23 11:13 98 F 87 18 153/112 100 Results - Labs Lab/Micro Results: Lab Results-Last 24 Hours 04/11/23 04/11/23 04/11/23 Range/Units 11:12 11:39 11:39 WBC 7.4 (4.0-10.5) x10^3/uL RBC 5.20 (4.1-5.6) x10^6/uL Hgb 15.9 (12.5-18.0) g/dL Hct 48.4 (42-50) % MCV 93.1 (78-100) fL MCH 30.6 (26-32) pg MCHC 32.9 (32-36) g/dL RDW 13.0 (11.5-14.0) % Plt Count 237 (150-450) x10^3/uL MPV 12.1 H (7.5-11.0) fL Gran % 64.1 (36.0-66.0) % Immature Gran % (Auto) 0.3 (0.00-0.4) % Nucleat RBC Rel Count 0.0 (0.00-0.1) % Eos # (Auto) 0.19 (0-0.5) x10^3/uL Immature Gran # (Auto) 0.02 (0.00-0.03) x10^3u/L Absolute Lymphs (auto) 1.56 (1.0-4.6) x10^3/uL Absolute Monos (auto) 0.82 (0.0-1.3) x10^3/uL Absolute Nucleated RBC 0.00 (0.00-0.01) x10^3u/L Lymphocytes % 21.1 L (24.0-44.0) % Monocytes % 11.1 (0.0-12.0) % Eosinophils % 2.6 (0.00-5.0) % Basophils % 0.8 (0.0-0.4) % Absolute Granulocytes 4.74 (1.4-6.9) x10^3/uL Basophils # 0.06 (0-0.4) x10^3/uL ESR (0-15) mm/hr Sodium 138 (137-145) mmol/L Potassium 4.3 (3.5-5.1) mmol/L Chloride 107 (98-107) mmol/L Carbon Dioxide 21 L (22-30) mmol/L Anion Gap 14.2 (5-15) MEQ/L BUN 21 H (9-20) mg/dL Creatinine 0.96 (0.66-1.25) mg/dL Estimated GFR 92.8 ML/MIN Glucose 96 (74-106) mg/dL POC Glucometer 101 (74 to 106) mg/dL Calcium 9.3 (8.4-10.2) mg/dL Total Bilirubin 0.50 (0.2-1.3) mg/dL AST 24 (17-59) U/L ALT 27 (0-50) U/L Alkaline Phosphatase 93 (38-126) U/L Troponin I (0.000-0.034) ng/mL Serum Total Protein 8.0 (6.3-8.2) g/dL Albumin 4.6 (3.5-5.0) g/dL Prealbumin (17.6-36.0) mg/dL Urine Color (Yellow) Urine Appearance (Clear) Urine pH (4.6-8.0) Ur Specific [place] (1.005-1.030) Urine Protein (Negative) Urine Glucose (UA) (Negative) mg/dL Urine Ketones (Negative) Urine Blood (Negative) Urine Nitrite (Negative) Urine Bilirubin (Negative) Urine Urobilinogen (0.2) mg/dL Ur Leukocyte Esterase (Negative) U Hyaline Cast (Auto) (0-2) /LPF Urine Microscopic RBC (0-5) /HPF Urine Microscopic WBC (0-5) /HPF Ur Epithelial Cells (None Seen) /HPF Calcium Oxalate Crystal (None Seen) /HPF Uric Acid Crystals (None Seen) /HPF Urine Bacteria (None Seen) /HPF Urine Culture Reflexed (NO) Influenza Type A Ag (NEGATIVE) Influenza Type B Ag (NEGATIVE) RSV (PCR) (NEGATIVE) SARS-CoV-2 (PCR) (NEGATIVE) 04/11/23 04/11/23 04/11/23 Range/Units 11:39 14:22 15:15 WBC (4.0-10.5) x10^3/uL RBC (4.1-5.6) x10^6/uL Hgb (12.5-18.0) g/dL Hct (42-50) % MCV (78-100) fL MCH (26-32) pg MCHC (32-36) g/dL RDW (11.5-14.0) % Plt Count (150-450) x10^3/uL MPV (7.5-11.0) fL Gran % (36.0-66.0) % Immature Gran % (Auto) (0.00-0.4) % Nucleat RBC Rel Count (0.00-0.1) % Eos # (Auto) (0-0.5) x10^3/uL Immature Gran # (Auto) (0.00-0.03) x10^3u/L Absolute Lymphs (auto) (1.0-4.6) x10^3/uL Absolute Monos (auto) (0.0-1.3) x10^3/uL Absolute Nucleated RBC (0.00-0.01) x10^3u/L Lymphocytes % (24.0-44.0) % Monocytes % (0.0-12.0) % Eosinophils % (0.00-5.0) % Basophils % (0.0-0.4) % Absolute Granulocytes (1.4-6.9) x10^3/uL Basophils # (0-0.4) x10^3/uL ESR 35 H (0-15) mm/hr Sodium (137-145) mmol/L Potassium (3.5-5.1) mmol/L Chloride (98-107) mmol/L Carbon Dioxide (22-30) mmol/L Anion Gap (5-15) MEQ/L BUN (9-20) mg/dL Creatinine (0.66-1.25) mg/dL Estimated GFR ML/MIN Glucose (74-106) mg/dL POC Glucometer (74 to 106) mg/dL Calcium (8.4-10.2) mg/dL Total Bilirubin (0.2-1.3) mg/dL AST (17-59) U/L ALT (0-50) U/L Alkaline Phosphatase (38-126) U/L Troponin I < 0.012 (0.000-0.034) ng/mL Serum Total Protein (6.3-8.2) g/dL Albumin (3.5-5.0) g/dL Prealbumin 27.60 (17.6-36.0) mg/dL Urine Color (Yellow) Urine Appearance (Clear) Urine pH (4.6-8.0) Ur Specific [place] (1.005-1.030) Urine Protein (Negative) Urine Glucose (UA) (Negative) mg/dL Urine Ketones (Negative) Urine Blood (Negative) Urine Nitrite (Negative) Urine Bilirubin (Negative) Urine Urobilinogen (0.2) mg/dL Ur Leukocyte Esterase (Negative) U Hyaline Cast (Auto) (0-2) /LPF Urine Microscopic RBC (0-5) /HPF Urine Microscopic WBC (0-5) /HPF Ur Epithelial Cells (None Seen) /HPF Calcium Oxalate Crystal (None Seen) /HPF Uric Acid Crystals (None Seen) /HPF Urine Bacteria (None Seen) /HPF Urine Culture Reflexed (NO) Influenza Type A Ag (NEGATIVE) Influenza Type B Ag (NEGATIVE) RSV (PCR) (NEGATIVE) SARS-CoV-2 (PCR) (NEGATIVE) 04/11/23 04/11/23 04/11/23 Range/Units 15:20 18:52 19:11 WBC (4.0-10.5) x10^3/uL RBC (4.1-5.6) x10^6/uL Hgb (12.5-18.0) g/dL Hct (42-50) % MCV (78-100) fL MCH (26-32) pg MCHC (32-36) g/dL RDW (11.5-14.0) % Plt Count (150-450) x10^3/uL MPV (7.5-11.0) fL Gran % (36.0-66.0) % Immature Gran % (Auto) (0.00-0.4) % Nucleat RBC Rel Count (0.00-0.1) % Eos # (Auto) (0-0.5) x10^3/uL Immature Gran # (Auto) (0.00-0.03) x10^3u/L Absolute Lymphs (auto) (1.0-4.6) x10^3/uL Absolute Monos (auto) (0.0-1.3) x10^3/uL Absolute Nucleated RBC (0.00-0.01) x10^3u/L Lymphocytes % (24.0-44.0) % Monocytes % (0.0-12.0) % Eosinophils % (0.00-5.0) % Basophils % (0.0-0.4) % Absolute Granulocytes (1.4-6.9) x10^3/uL Basophils # (0-0.4) x10^3/uL ESR (0-15) mm/hr Sodium (137-145) mmol/L Potassium (3.5-5.1) mmol/L Chloride (98-107) mmol/L Carbon Dioxide (22-30) mmol/L Anion Gap (5-15) MEQ/L BUN (9-20) mg/dL Creatinine (0.66-1.25) mg/dL Estimated GFR ML/MIN Glucose (74-106) mg/dL POC Glucometer (74 to 106) mg/dL Calcium (8.4-10.2) mg/dL Total Bilirubin (0.2-1.3) mg/dL AST (17-59) U/L ALT (0-50) U/L Alkaline Phosphatase (38-126) U/L Troponin I < 0.012 < 0.012 (0.000-0.034) ng/mL Serum Total Protein (6.3-8.2) g/dL Albumin (3.5-5.0) g/dL Prealbumin (17.6-36.0) mg/dL Urine Color Yellow (Yellow) Urine Appearance Turbid A (Clear) Urine pH 5.5 (4.6-8.0) Ur Specific [place] >=1.030 A (1.005-1.030) Urine Protein 300 A (Negative) Urine Glucose (UA) Negative (Negative) mg/dL Urine Ketones 15 A (Negative) Urine Blood Large A (Negative) Urine Nitrite Positive A (Negative) Urine Bilirubin Negative (Negative) Urine Urobilinogen 1.0 A (0.2) mg/dL Ur Leukocyte Esterase Moderate A (Negative) U Hyaline Cast (Auto) None Seen (0-2) /LPF Urine Microscopic RBC 21-50 A (0-5) /HPF Urine Microscopic WBC >100 A (0-5) /HPF Ur Epithelial Cells Few (None Seen) /HPF Calcium Oxalate Crystal 0-2 A (None Seen) /HPF Uric Acid Crystals 3-5 A (None Seen) /HPF Urine Bacteria Many A (None Seen) /HPF Urine Culture Reflexed ORDERED SEPARATELY (NO) Influenza Type A Ag (NEGATIVE) Influenza Type B Ag (NEGATIVE) RSV (PCR) (NEGATIVE) SARS-CoV-2 (PCR) (NEGATIVE) 04/11/23 Range/Units Unknown WBC (4.0-10.5) x10^3/uL RBC (4.1-5.6) x10^6/uL Hgb (12.5-18.0) g/dL Hct (42-50) % MCV (78-100) fL MCH (26-32) pg MCHC (32-36) g/dL RDW (11.5-14.0) % Plt Count (150-450) x10^3/uL MPV (7.5-11.0) fL Gran % (36.0-66.0) % Immature Gran % (Auto) (0.00-0.4) % Nucleat RBC Rel Count (0.00-0.1) % Eos # (Auto) (0-0.5) x10^3/uL Immature Gran # (Auto) (0.00-0.03) x10^3u/L Absolute Lymphs (auto) (1.0-4.6) x10^3/uL Absolute Monos (auto) (0.0-1.3) x10^3/uL Absolute Nucleated RBC (0.00-0.01) x10^3u/L Lymphocytes % (24.0-44.0) % Monocytes % (0.0-12.0) % Eosinophils % (0.00-5.0) % Basophils % (0.0-0.4) % Absolute Granulocytes (1.4-6.9) x10^3/uL Basophils # (0-0.4) x10^3/uL ESR (0-15) mm/hr Sodium (137-145) mmol/L Potassium (3.5-5.1) mmol/L Chloride (98-107) mmol/L Carbon Dioxide (22-30) mmol/L Anion Gap (5-15) MEQ/L BUN (9-20) mg/dL Creatinine (0.66-1.25) mg/dL Estimated GFR ML/MIN Glucose (74-106) mg/dL POC Glucometer (74 to 106) mg/dL Calcium (8.4-10.2) mg/dL Total Bilirubin (0.2-1.3) mg/dL AST (17-59) U/L ALT (0-50) U/L Alkaline Phosphatase (38-126) U/L Troponin I (0.000-0.034) ng/mL Serum Total Protein (6.3-8.2) g/dL Albumin (3.5-5.0) g/dL Prealbumin (17.6-36.0) mg/dL Urine Color (Yellow) Urine Appearance (Clear) Urine pH (4.6-8.0) Ur Specific [place] (1.005-1.030) Urine Protein (Negative) Urine Glucose (UA) (Negative) mg/dL Urine Ketones (Negative) Urine Blood (Negative) Urine Nitrite (Negative) Urine Bilirubin (Negative) Urine Urobilinogen (0.2) mg/dL Ur Leukocyte Esterase (Negative) U Hyaline Cast (Auto) (0-2) /LPF Urine Microscopic RBC (0-5) /HPF Urine Microscopic WBC (0-5) /HPF Ur Epithelial Cells (None Seen) /HPF Calcium Oxalate Crystal (None Seen) /HPF Uric Acid Crystals (None Seen) /HPF Urine Bacteria (None Seen) /HPF Urine Culture Reflexed (NO) Influenza Type A Ag NEGATIVE (NEGATIVE) Influenza Type B Ag NEGATIVE (NEGATIVE) RSV (PCR) POSITIVE (NEGATIVE) SARS-CoV-2 (PCR) NEGATIVE (NEGATIVE) Accuchecks Date 04/11/23 Time 11:12 - Radiology Impressions Radiology Exams & Impressions: Radiology Procedures Category Date Time Status HEAD WITHOUT CONTRAST [CT] Stat Exams 04/11/23 11:06 Completed MRI BRAIN W/O CONTRAST [MRI] Stat Exams 04/11/23 13:40 Completed GLENN Encounter - GLENN Encounter Attestation GLENN Encounter Attestation: "MCKAY Jordan andhavediscussed pertinent aspects of their care with Mike Hanna agree with the history, physical exam (any modifications based on my personal exam will be noted below), assessment, and plan as outlined in original note. Please see immediately below for my summary of findings and additional assessment and plan along with any meaningful corrections/explanations to the Subjective/Objective portions of the GLENN note will be noted." My portion of the encounter took place via telemedicine. Patient continues to have bilateral facial numbness though vision is now close t o baseline. He denies his migraines or seizure ever presenting this way (used to have grand mal). MRI is negative. Will discuss with neuro regarding other possibilities.
[2023-04-11] MEDS ORDERED: TYLENOL 325 MG PO PRN (14:14)
--- NOTE | 2023-04-11 15:14 | XRAY ---
Indication: Blurred vision and facial numbness. Negative same-day CT head exam. Sagittal, coronal, and axial MRI brain performed without contrast using T1, T2, FLAIR, diffusion, and ADC sequences. Comparison: None Age-appropriate global atrophy and moderate periventricular degenerative micro-ischemia signal bilaterally. Prominent lateral ventricles not out of proportion to global atrophy. No acute intracranial hemorrhage, abnormal extra-axial fluid collection, or mass effect. Diffusion images are negative for restricted signal. Incidental cavum septum pellucidum. Fourth ventricle is midline. 7/8 cranial nerve complex bilaterally symmetric. Normal flow-void signal within the major intracerebral circulation. Normal appearing craniocervical junction and sella turcica. Paranasal sinuses are clear. Impression: Atrophy and degenerative micro-ischemia within normal limits for patient's age. No acute intracranial abnormalities or evidence for evolving large vessel territorial stroke.
[2023-04-11 19:22] LABS: Appearance Turbid (Clear); Bacteria Many /HPF (None Seen); Bilirubin Negative (Negative); Blood Large (Negative); Glucose, Urine Negative (Negative); Ketones 15 (Negative); Leukocyte Esterase Moderate (Negative); Nitrite Positive (Negative); Ph 5.5 (4.6-8.0); Protein,Urine Dip 300 (Negative); Specific Gravity >=1.030 (1.005-1.030); WBC >100 /HPF (0-5)
[2023-04-11 19:25] LABS: Epithelial Cells Few /HPF (None Seen); RBC 21-50 /HPF (0-5)
[2023-04-11 19:26] LABS: ADD URINE CULTURE? ORDERED SEPARATELY (NO); Calcium Oxalate Crystals 0-2 /HPF (None Seen); Hyaline Casts None Seen /LPF (0-2)
[2023-04-11] MEDS: Xalatan OP SCH (21:58)
[2023-04-11] MEDS: Coreg PO SCH (21:59)
[2023-04-11] MEDS ORDERED: BACTRIM DS TABLET PO SCH (22:00)
[2023-04-11] MEDS ORDERED: Coreg 3.125 MG PO SCH (22:00)
[2023-04-12 05:38] LABS: Hematocrit 46.4 % (42-50); Hemoglobin 14.8 g/dL (12.5-18.0); Mean Cell Volume 94.5 fL (78-100); Mean Corpuscular Hemoglobin 30.1 pg (26-32); Mean Corpuscular Hgb Concent. 31.9 g/dL (32-36); Mean Platelet Volume 12.6 fL (7.5-11.0); Platelet Count 216 x10^3/uL (150-450); Red Blood Count 4.91 x10^6/uL (4.1-5.6); Red Cell Distribution Width 13.1 % (11.5-14.0)
[2023-04-12 07:34] LABS: BILIRUBIN,TOTAL 0.4 mg/dL (0.2-1.3); Creatinine 1 0.84 mg/dL (0.66-1.25); EST GLOMERULAR FILTRATION RATE 102.4 ML/MIN; Potassium 4.3 mmol/L (3.5-5.1); Total Protein 7.2 g/dL (6.3-8.2)
[2023-04-12 07:35] LABS: ANION GAP 14.3 MEQ/L (5-15)
[2023-04-12] MEDS ORDERED: NON-FORMULARY ITEM (Omeprazole [Omeprazole] 40 MG Capsule.Dr) PO SCH (10:00)
[2023-04-12] MEDS ORDERED: BABY ASPIRIN 81 MG CHEW PO SCH (10:00)
[2023-04-12] MEDS: LEVOFLOXACIN 750MG/150ML D5W 750 MG/150 ML BAG IV SCH (10:46)
[2023-04-12] MEDS: Coreg PO SCH ×2 (10:47→22:10)
[2023-04-12] MEDS: Lexapro PO SCH (10:47)
[2023-04-12] MEDS: Protonix 40MG Tablet PO SCH (10:47)
[2023-04-12] MEDS: ECOTRIN 81 MG PO SCH (10:47)
--- NOTE | 2023-04-12 13:08 | PCM.NOTE ---
Date and Time: 04/12/23 1257 Subjective Assessment: 04/11/23 is a 57 year old male with pmhx of cerebral palsy, migraines, seizures, glaucoma, arrythmia, ID, HTN, arthritis, GERD, anxiety, depression, panic d/o, prostate problems, and gastric ulcer. He is scheduled for surgery on 04/28/23 for ileal conduit/colostomy due to neurogenic bladder at [facility]. Pt states he has gangrene of his colon but this is not a dx on the most recent report from last week. He has only been taking omeprazole and Bactrim per recommendation of GI per pt. He has not been taking his BP medication. Records requested and reviewed. He presented to our ED for evaluation of blurred vision and facial numbness. Patient states blurred vision started upon awakening this morning at 7:30 am and lasted about 1.5 hours approximately. Patient states that his blurred vision has gradually improved but still somewhat there. He continues to have facial numbness. He had no other associated symptomology. Patient is not diabetic. Accu-Chek in ED was 101. No associated chest pain or shortness of breath. No nausea vomiting or diaphoresis. No weakness no syncope no sei zure. Patient's caregiver at the bedside. She explained she was on her way to [facility] where his physican's are and there was black ice so she came to this hospital. CT of brain was negative for acute process. MRI of brain was recommended by tele-neurology. ASA 324 mg was gave in ER. 04/12/23 Pt resting in bed. Blurred vision and facial numbness have resolved. MRI was negative for any acute concerns. Discussed most recent report from [facility] and it discussed that pt was continue his home meds. He states he must have gotten confused and agreeable to restarting them. UA came back + for UTI, gram negative organism. Antibiotics changed from Bactrim to Levaquin. This is a complicated UTI as he has has at least 2 infections recently in the past 2 months and he has a suprapubic cath that is changed Q 2 weeks. It is due to be changed Monday. He has this done with his specialist at the hospital clinic. Started Coreg yesterday as it was advised per records for him to be on a beta jorge luis. BP has improved. He deneis CP, SOB, N/V/D. <MIKE MARIEE - Last Filed: 04/12/23 12:57> Date and Time: 04/12/232010 <ADOLFO MORENO - Last Filed: 04/12/23 20:13> - Review of Systems Constitutional: No Fever, No Chills Eyes: No Symptoms Ears, Nose, & Throat: No Symptoms Respiratory: No Cough, No Short Of Breath Cardiac: No Chest Pain, No Edema, No Syncope Abdominal/Gastrointestinal: Abdominal Pain (RLQ, LLQ- pt reports this is chronic), No Nausea, No Vomiting, No Diarrhea Genitourinary Symptoms: No Dysuria Musculoskeletal: No Back Pain, No Neck Pain Skin: No Rash Neurological: No Dizziness, No Focal Weakness, No Sensory Changes Psychological: No Symptoms Endocrine: No Symptoms Hematologic/Lymphatic: No Symptoms Immunological/Allergic: No Symptoms <MIKE MARIEE - Last Filed: 04/12/23 12:57> Objective Exam General Appearance: no apparent distress, alert Neurologic Exam: alert, oriented x 3, cooperative, normal mood/affect, nml cerebellar function, sensation nml, No motor deficits Skin Exam: normal color, warm, dry Eye Exam: PERRL, EOMI, eyes nml inspection Ears, Nose, Throat Exam: normal ENT inspection, pharynx normal, moist mucous membranes Neck Exam: normal inspection, non-tender, supple, full range of motion Respiratory Exam: normal breath sounds, lungs clear, No respiratory distress Cardiovascular Exam: regular rate/rhythm, normal heart sounds Gastrointestinal/Abdomen Exam: soft, No tenderness, No mass Extremity Exam: normal inspection, normal range of motion Back Exam: normal inspection, normal range of motion, No CVA tenderness, No vertebral tenderness Male Genitalia Exam: deferred Rectal Exam: deferred <MIKE MARIEE - Last Filed: 04/12/23 12:57> OBJECTIVE DATA Vital Signs: Vital Signs - 24 hr Temp Pulse Resp BP BP Pulse Ox 04/12/23 11:54 98.2 F 101 H 19 126/99 98 04/12/23 07:22 98.4 F 69 16 121/88 95 04/12/23 04:00 97.3 F 78 20 143/78 97 04/11/23 23:56 97.8 F 103 H 19 126/83 97 04/11/23 19:24 97.6 F 97 H 20 171/93 96 04/11/23 15:25 97.8 F 95 H 18 134/97 94 L 04/11/23 13:22 98 04/11/23 13:10 98 04/11/23 13:00 88 143/103 Pain Assessment - Last Documented Pain Intensity 0 Intake and Output: Intake & Output 04/10/23 04/11/23 04/12/23 04/13/23 11:59 11:59 11:59 11:59 Intake Total 1240 Output Total 650 Balance 590 Weight 50.5 kg 50.7 kg Lab Results: Lab Results-Last 24 Hours 04/11/23 04/11/23 04/11/23 Range/Units 14:22 15:15 15:20 WBC (4.0-10.5) x10^3/uL RBC (4.1-5.6) x10^6/uL Hgb (12.5-18.0) g/dL Hct (42-50) % MCV (78-100) fL MCH (26-32) pg MCHC (32-36) g/dL RDW (11.5-14.0) % Plt Count (150-450) x10^3/uL MPV (7.5-11.0) fL ESR 35 H (0-15) mm/hr Sodium (137-145) mmol/L Potassium (3.5-5.1) mmol/L Chloride (98-107) mmol/L Carbon Dioxide (22-30) mmol/L Anion Gap (5-15) MEQ/L BUN (9-20) mg/dL Creatinine (0.66-1.25) mg/dL Estimated GFR ML/MIN Glucose (74-106) mg/dL Calcium (8.4-10.2) mg/dL Total Bilirubin (0.2-1.3) mg/dL AST (17-59) U/L ALT (0-50) U/L Alkaline Phosphatase (38-126) U/L Troponin I < 0.012 (0.000-0.034) ng/mL Serum Total Protein (6.3-8.2) g/dL Albumin (3.5-5.0) g/dL Prealbumin 27.60 (17.6-36.0) mg/dL TSH 3rd Generation (0.47-4.68) mIU/L Urine Color (Yellow) Urine Appearance (Clear) Urine pH (4.6-8.0) Ur Specific [place] (1.005-1.030) Urine Protein (Negative) Urine Glucose (UA) (Negative) mg/dL Urine Ketones (Negative) Urine Blood (Negative) Urine Nitrite (Negative) Urine Bilirubin (Negative) Urine Urobilinogen (0.2) mg/dL Ur Leukocyte Esterase (Negative) U Hyaline Cast (Auto) (0-2) /LPF Urine Microscopic RBC (0-5) /HPF Urine Microscopic WBC (0-5) /HPF Ur Epithelial Cells (None Seen) /HPF Calcium Oxalate Crystal (None Seen) /HPF Uric Acid Crystals (None Seen) /HPF Urine Bacteria (None Seen) /HPF Urine Culture Reflexed (NO) 04/11/23 04/11/23 04/12/23 Range/Units 18:52 19:11 05:02 WBC (4.0-10.5) x10^3/uL RBC (4.1-5.6) x10^6/uL Hgb (12.5-18.0) g/dL Hct (42-50) % MCV (78-100) fL MCH (26-32) pg MCHC (32-36) g/dL RDW (11.5-14.0) % Plt Count (150-450) x10^3/uL MPV (7.5-11.0) fL ESR (0-15) mm/hr Sodium (137-145) mmol/L Potassium (3.5-5.1) mmol/L Chloride (98-107) mmol/L Carbon Dioxide (22-30) mmol/L Anion Gap (5-15) MEQ/L BUN (9-20) mg/dL Creatinine (0.66-1.25) mg/dL Estimated GFR ML/MIN Glucose (74-106) mg/dL Calcium (8.4-10.2) mg/dL Total Bilirubin (0.2-1.3) mg/dL AST (17-59) U/L ALT (0-50) U/L Alkaline Phosphatase (38-126) U/L Troponin I < 0.012 (0.000-0.034) ng/mL Serum Total Protein (6.3-8.2) g/dL Albumin (3.5-5.0) g/dL Prealbumin (17.6-36.0) mg/dL TSH 3rd Generation 4.000 (0.47-4.68) mIU/L Urine Color Yellow (Yellow) Urine Appearance Turbid A (Clear) Urine pH 5.5 (4.6-8.0) Ur Specific [place] >=1.030 A (1.005-1.030) Urine Protein 300 A (Negative) Urine Glucose (UA) Negative (Negative) mg/dL Urine Ketones 15 A (Negative) Urine Blood Large A (Negative) Urine Nitrite Positive A (Negative) Urine Bilirubin Negative (Negative) Urine Urobilinogen 1.0 A (0.2) mg/dL Ur Leukocyte Esterase Moderate A (Negative) U Hyaline Cast (Auto) None Seen (0-2) /LPF Urine Microscopic RBC 21-50 A (0-5) /HPF Urine Microscopic WBC >100 A (0-5) /HPF Ur Epithelial Cells Few (None Seen) /HPF Calcium Oxalate Crystal 0-2 A (None Seen) /HPF Uric Acid Crystals 3-5 A (None Seen) /HPF Urine Bacteria Many A (None Seen) /HPF Urine Culture Reflexed ORDERED SEPARATELY (NO) 04/12/23 04/12/23 Range/Units 05:02 05:02 WBC 7.0 (4.0-10.5) x10^3/uL RBC 4.91 (4.1-5.6) x10^6/uL Hgb 14.8 (12.5-18.0) g/dL Hct 46.4 (42-50) % MCV 94.5 (78-100) fL MCH 30.1 (26-32) pg MCHC 31.9 L (32-36) g/dL RDW 13.1 (11.5-14.0) % Plt Count 216 (150-450) x10^3/uL MPV 12.6 H (7.5-11.0) fL ESR (0-15) mm/hr Sodium 136 L (137-145) mmol/L Potassium 4.3 (3.5-5.1) mmol/L Chloride 109 H (98-107) mmol/L Carbon Dioxide 17 L (22-30) mmol/L Anion Gap 14.3 (5-15) MEQ/L BUN 25 H (9-20) mg/dL Creatinine 0.84 (0.66-1.25) mg/dL Estimated GFR 102.4 ML/MIN Glucose 100 (74-106) mg/dL Calcium 9 (8.4-10.2) mg/dL Total Bilirubin 0.40 (0.2-1.3) mg/dL AST 40 (17-59) U/L ALT 33 (0-50) U/L Alkaline Phosphatase 82 (38-126) U/L Troponin I (0.000-0.034) ng/mL Serum Total Protein 7.2 (6.3-8.2) g/dL Albumin 4.0 (3.5-5.0) g/dL Prealbumin (17.6-36.0) mg/dL TSH 3rd Generation (0.47-4.68) mIU/L Urine Color (Yellow) Urine Appearance (Clear) Urine pH (4.6-8.0) Ur Specific [place] (1.005-1.030) Urine Protein (Negative) Urine Glucose (UA) (Negative) mg/dL Urine Ketones (Negative) Urine Blood (Negative) Urine Nitrite (Negative) Urine Bilirubin (Negative) Urine Urobilinogen (0.2) mg/dL Ur Leukocyte Esterase (Negative) U Hyaline Cast (Auto) (0-2) /LPF Urine Microscopic RBC (0-5) /HPF Urine Microscopic WBC (0-5) /HPF Ur Epithelial Cells (None Seen) /HPF Calcium Oxalate Crystal (None Seen) /HPF Uric Acid Crystals (None Seen) /HPF Urine Bacteria (None Seen) /HPF Urine Culture Reflexed (NO) Radiology Exams: Radiology Procedures Category Date Time Status HEAD WITHOUT CONTRAST [CT] Stat Exams 04/11/23 11:06 Completed MRI BRAIN W/O CONTRAST [MRI] Stat Exams 04/11/23 13:40 Completed Multi-Disciplinary Progress Notes: Multi-Disciplinary Progress Notes 04/12/23 10:47 Occupational Therapy Note by Kina Funk OT WILL FOLLOW UP WITH PATIENT APPROPRIATE. AT TIME OF EVAL ATTEMPT, LOG YARD DERRICK OPERATOR IN ROOM AND THEN NURSING DONNING GOWNS TO GO INTO ROOM. Initialized on 04/12/23 10:47 - END OF NOTE <MIKE MARIEE - Last Filed: 04/12/23 12:57> Vital Signs: Vital Signs - 24 hr Temp Pulse Resp BP Pulse Ox 04/12/23 19:47 97.7 F 92 H 20 118/82 96 04/12/23 16:00 97.7 F 87 18 141/82 95 04/12/23 11:54 98.2 F 101 H 19 126/99 98 04/12/23 07:22 98.4 F 69 16 121/88 95 04/12/23 04:00 97.3 F 78 20 143/78 97 04/11/23 23:56 97.8 F 103 H 19 126/83 97 Pain Assessment - Last Documented Pain Intensity 0 Intake and Output: Intake & Output 04/10/23 04/11/23 04/12/23 04/13/23 11:59 11:59 11:59 11:59 Intake Total 1240 720 Output Total 650 300 Balance 590 420 Weight 50.5 kg 50.7 kg Lab Results: Lab Results-Last 24 Hours 04/12/23 04/12/23 04/12/23 Range/Units 05:02 05:02 05:02 WBC 7.0 (4.0-10.5) x10^3/uL RBC 4.91 (4.1-5.6) x10^6/uL Hgb 14.8 (12.5-18.0) g/dL Hct 46.4 (42-50) % MCV 94.5 (78-100) fL MCH 30.1 (26-32) pg MCHC 31.9 L (32-36) g/dL RDW 13.1 (11.5-14.0) % Plt Count 216 (150-450) x10^3/uL MPV 12.6 H (7.5-11.0) fL Sodium 136 L (137-145) mmol/L Potassium 4.3 (3.5-5.1) mmol/L Chloride 109 H (98-107) mmol/L Carbon Dioxide 17 L (22-30) mmol/L Anion Gap 14.3 (5-15) MEQ/L BUN 25 H (9-20) mg/dL Creatinine 0.84 (0.66-1.25) mg/dL Estimated GFR 102.4 ML/MIN Glucose 100 (74-106) mg/dL Calcium 9 (8.4-10.2) mg/dL Total Bilirubin 0.40 (0.2-1.3) mg/dL AST 40 (17-59) U/L ALT 33 (0-50) U/L Alkaline Phosphatase 82 (38-126) U/L Serum Total Protein 7.2 (6.3-8.2) g/dL Albumin 4.0 (3.5-5.0) g/dL TSH 3rd Generation 4.000 (0.47-4.68) mIU/L Radiology Exams: Radiology Procedures Category Date Time Status HEAD WITHOUT CONTRAST [CT] Stat Exams 04/11/23 11:06 Completed MRI BRAIN W/O CONTRAST [MRI] Stat Exams 04/11/23 13:40 Completed Multi-Disciplinary Progress Notes: Multi-Disciplinary Progress Notes 04/12/23 10:47 Occupational Therapy Note by Kina Funk OT WILL FOLLOW UP WITH PATIENT APPROPRIATE. AT TIME OF EVAL ATTEMPT, LOG YARD DERRICK OPERATOR IN ROOM AND THEN NURSING DONNING GOWNS TO GO INTO ROOM. Initialized on 04/12/23 10:47 - END OF NOTE <ADOLFO MORENO - Last Filed: 04/12/23 20:13> Assessment/Plan (1) Blurred vision, bilateral Current Visit: Yes Status: Resolved Assessment & Plan: - Vision has improved but c/o continues abnormal vision changes - CT head 04/11 Impression: Nonacute senile brain. - Neurology consulted in ER and recommended MRI for further evaluation - MRI brain pending - ASA 324 mg gave in ER - Tele - EKG- reviewed - neuro checks Q4 - Neurology recommendations: CBC, CMP, TSH, ESR, CRP, Trop x3, UA Permissive HTN 220/110 If MRI negative restart BP meds PT/OT/Speech ASA 81mg daily 04/12 - MRI brain 04/11 Impression: Atrophy and degenerative micro-ischemia within normal limits for patient's age. No acute intracranial abnormalities or evidence for evolving large vessel territorial stroke. - Sx resolved today Code(s): H53.8 - OTHER VISUAL DISTURBANCES (2) Facial numbness Current Visit: Yes Status: Resolved Assessment & Plan: - resolved Code(s): R20.0 - ANESTHESIA OF SKIN (3) RSV infection Current Visit: Yes Status: Acute Assessment & Plan: - Supportive care Code(s): B33.8 - OTHER SPECIFIED VIRAL DISEASES (4) Anxiety and depression Current Visit: Yes Status: Acute Assessment & Plan: - restarted lexapro - denies suicidal or homicidal ideation Code(s): F41.9 - ANXIETY DISORDER, UNSPECIFIED; F32.A - DEPRESSION, UNSPECIFIED (5) Glaucoma Current Visit: Yes Status: Acute Assessment & Plan: - Continue eye gtts Code(s): H40.9 - UNSPECIFIED GLAUCOMA (6) GERD (gastroesophageal reflux disease) Current Visit: Yes Status: Acute Assessment & Plan: - Continue omeprazole Code(s): K21.9 - GASTRO-ESOPHAGEAL REFLUX DISEASE WITHOUT ESOPHAGITIS (7) Complicated UTI (urinary tract infection) Current Visit: Yes Status: Acute Assessment & Plan: - Changed Bactrim to Levaquin - Chronic suprapubic cath changed Q2 weeks. - due to be changed this Monday per pt - Recently had 2 UTI infections in the past 2 moths - gram negative- ID and sensitivity pending Code(s): N39.0 - URINARY TRACT INFECTION, SITE NOT SPECIFIED (8) HTN (hypertension) Current Visit: Yes Status: Acute Assessment & Plan: - BP improved with Coreg Code(s): I10 - ESSENTIAL (PRIMARY) HYPERTENSION (9) Gangrene of colon Current Visit: Yes Status: Resolved Assessment & Plan: - Pt does not have this per records from [facility] - Pt reports he does have this, I think he may have misunderstood VTE: SCD's PPI: omeprazole D/C plan 1-2 days Next of kin: Ranjit Melendez ( sibling) [phone] Code(s): K55.049 - ACUTE INFARCTION OF LARGE INTESTINE, EXTENT UNSPECIFIED <MIKE MARIEE - Last Filed: 04/12/23 12:57> GLENN Encounter - GLENN Encounter Attestation GLENN Encounter Attestation: "IhavepersonallyseenandexBobo,MCKAY MOHAN andhavediscussed pertinent aspects of their care with Mike Hanna agree with the history, physical exam (any modifications based on my personal exam will be noted below), assessment, and plan as outlined in original note. Please see immediately below for my summary of findings and additional assessment and plan along with any meaningful corrections/explanations to the Subjective/Objective portions of the GLENN note will be noted." My portion of the encounter took place via telemedicine. -Stroke ruled out and symptoms of facial numbness and vision changes have resolved. He does have a UTI though, with suprapubic catheter in place. Will await urine culture results prior to discharging patient as he has had recurrent UTIs and is at high risk for a resistant bug. <ADOLFO MORENO - Last Filed: 04/12/23 20:13>
[2023-04-12] MEDS: Xalatan OP SCH (22:10)
[2023-04-13 04:39] VITALS: O2SAT 96
[2023-04-13 04:47] LABS: Hematocrit 44.2 % (42-50); Hemoglobin 14.5 g/dL (12.5-18.0); Mean Cell Volume 93.2 fL (78-100); Mean Corpuscular Hemoglobin 30.6 pg (26-32); Mean Corpuscular Hgb Concent. 32.8 g/dL (32-36); Mean Platelet Volume 12.3 fL (7.5-11.0); Platelet Count 218 x10^3/uL (150-450); Red Blood Count 4.74 x10^6/uL (4.1-5.6); Red Cell Distribution Width 13.1 % (11.5-14.0); White Blood Count 6.2 x10^3/uL (4.0-10.5)
[2023-04-13 05:03] LABS: ALBUMIN 3.8 g/dL (3.5-5.0); BILIRUBIN,TOTAL 0.6 mg/dL (0.2-1.3); Calcium 8.8 mg/dL (8.4-10.2); Creatinine 1 0.83 mg/dL (0.66-1.25); EST GLOMERULAR FILTRATION RATE 102.7 ML/MIN; Potassium 4.3 mmol/L (3.5-5.1); Total Protein 6.9 g/dL (6.3-8.2)
[2023-04-13 07:00] VITALS: PULSE 87; RESP 16
[2023-04-13] MEDS: Coreg PO SCH (09:02)
[2023-04-13] MEDS: Lexapro PO SCH (09:02)
[2023-04-13] MEDS: ECOTRIN 81 MG PO SCH (09:02)
[2023-04-13] MEDS: Protonix 40MG Tablet PO SCH (09:02)
[2023-04-13] MEDS: LEVOFLOXACIN 750MG/150ML D5W 750 MG/150 ML BAG IV SCH (09:02)
[2023-04-13] MEDS ORDERED: SODIUM BICARBONATE PO SCH (10:00)
[2023-04-13 11:07] VITALS: BP 125/65; TEMP 97.7
--- NOTE | 2023-04-13 11:37 | PCM.DS ---
Discharge Summary Date of Admission: 04/11/23 13:07 Date of Discharge: 04/13/23 Admitting Physician: ADOLFO MORENO MD Primary Care Provider: MARQUES GUALLPA MD <MIKE MARIEE - Last Filed: 04/13/23 11:42> Date of Admission: 04/11/23 13:07 Date of Discharge: 04/13/23 Admitting Physician: ADOLFO MORENO MD Primary Care Provider: MARQUES GUALLPA MD <ADOLFO MORENO - Last Filed: 04/13/23 20:08> Allergies <MIKE MARIEE - Last Filed: 04/13/23 11:42> <ADOLFO MORENO - Last Filed: 04/13/23 20:08> Allergies diazepam [From Valium] Allergy (Verified 04/11/23 11:26) Penicillins Allergy (Verified 04/11/23 11:26) Hospital Summary - Hospital Course Hospital Course: 04/11/23 is a 57 year old male with pmhx of cerebral palsy, migraines, seizures, glaucoma, arrythmia, GA, HTN, arthritis, GERD, anxiety, depression, panic d/o, prostate problems, and gastric ulcer. He is scheduled for surgery on 04/28/23 for ileal conduit/colostomy due to neurogenic bladder at [facility]. Pt states he has gangrene of his colon but this is not a dx on the most recent report from last week. He has only been taking omeprazole and Bactrim per recommendation of GI per pt. He has not been taking his BP medication. Records requested and reviewed. He presented to our ED for evaluation of blurred vision and facial numbness. Patient states blurred vision started upon awakening this morning at 7:30 am and lasted about 1.5 hours approximately. Patient states that his blurred vision has gradually improved but still somewhat there. He continues to have facial numbness. He had no other associated symptomology. Patient is not diabetic. Accu-Chek in ED was 101. No associated chest pain or shortness of breath. No nausea vomiting or diaphoresis. No weakness no syncope no seizure. Patient's caregiver at the bedside. She explained she was on her way to [facility] where his physican's are and there was black ice so she came to this hospital. CT of brain was negative for acute process. MRI of brain was recommended by tele-neurology. ASA 324 mg was gave in ER. 04/12/23 Pt resting in bed. Blurred vision and facial numbness have resolved. MRI was negative for any acute concerns. Discussed most recent report from [facility] and it discussed that pt was continue his home meds. He states he must have gotten confused and agreeable to restarting them. UA came back + for UTI, gram negative organism. Antibiotics changed from Bactrim to Levaquin. This is a complicated UTI as he has has at least 2 infections recently in the past 2 months and he has a suprapubic cath that is changed Q 2 weeks. It is due to be changed Monday. He has this done with his specialist at the hospital clinic. Started Coreg yesterday as it was advised per records for him to be on a beta jorge luis. BP has improved. He deneis CP, SOB, N/V/D. 04/13/23 Pt resting in bed. UC came back pt is positive for e-coli in urine. He is resistant to Bactrim. Will D/C pt with continued Levaquin OP. Carbon dioxide improved but still low. Lactic acid normal. He has no N/V/D. Sodium bicarb started and will continue for 2 more days OP. He will need to f/u with PCP next week for BMP lab recheck. He denies any concerns at this time. He has an appointment for cath change as scheduled. Appointment made with PCP. - Vitals & Intake/Output Vital Signs: Vital Signs Temperature 97.7 F 04/13/23 11:06 Pulse Rate 87 04/13/23 11:06 Respiratory Rate 16 04/13/23 11:06 Blood Pressure 125/65 04/13/23 11:06 O2 Sat by Pulse Oximetry 96 04/13/23 11:06 Intake & Output: Intake & Output 04/10/23 04/11/23 04/12/23 04/13/23 11:59 11:59 11:59 11:59 Intake Total 1240 1240 Output Total 650 550 Balance 590 690 Weight 50.5 kg 50.7 kg - Lab Result Diagrams: 04/13/23 04:42 04/13/23 04:42 Lab Results-Last 24 Hrs: Lab Results-Last 24 Hours 04/13/23 04/13/23 04/13/23 Range/Units 04:42 04:42 07:59 WBC 6.2 (4.0-10.5) x10^3/uL RBC 4.74 (4.1-5.6) x10^6/uL Hgb 14.5 (12.5-18.0) g/dL Hct 44.2 (42-50) % MCV 93.2 (78-100) fL MCH 30.6 (26-32) pg MCHC 32.8 (32-36) g/dL RDW 13.1 (11.5-14.0) % Plt Count 218 (150-450) x10^3/uL MPV 12.3 H (7.5-11.0) fL Sodium 134 L (137-145) mmol/L Potassium 4.3 (3.5-5.1) mmol/L Chloride 107 (98-107) mmol/L Carbon Dioxide 19 L (22-30) mmol/L Anion Gap 13.0 (5-15) MEQ/L BUN 23 H (9-20) mg/dL Creatinine 0.83 (0.66-1.25) mg/dL Estimated GFR 102.7 ML/MIN Glucose 105 (74-106) mg/dL Lactic Acid 1.0 (0.4-2.0) Calcium 8.8 (8.4-10.2) mg/dL Total Bilirubin 0.60 (0.2-1.3) mg/dL AST 38 (17-59) U/L ALT 39 (0-50) U/L Alkaline Phosphatase 72 (38-126) U/L Serum Total Protein 6.9 (6.3-8.2) g/dL Albumin 3.8 (3.5-5.0) g/dL Micro Results-Entire Visit: Microbiology 04/11/23 18:58 Urine Culture - Final Urine,Suprapubic Escherichia Coli - Radiology Exams Ordered Rad Exams-Entire Visit: Radiology Procedures Category Date Time Status HEAD WITHOUT CONTRAST [CT] Stat Exams 04/11/23 11:06 Completed MRI BRAIN W/O CONTRAST [MRI] Stat Exams 04/11/23 13:40 Completed - Procedures and Test Procedures and Tests throughout Hospitalization: Therapy Orders & Screens 04/11/23 14:27 PT Eval & Treat (MD Order) ONCE Reason for Eval:: possible TIA Diagnosis: Blurred vision, facial numbness ST Eval & Treat (MD Order) .as ordered Comment: Physician Instructions: Reason For Exam: possible TIA- MRI in process Evaluate: possible TIA Treat: Yes Reason for Eval: difficulty swallowing Diagnosis: Blurred vision, facial numbness OT Eval and Treat (MD Order) ONCE Comment: Physician Instructions: Reason For Exam: possible TIA Evaluate: Yes Treat: Yes Diagnosis: Blurred vision, facial numbness <MIKE MARIEE - Last Filed: 04/13/23 11:42> - Vitals & Intake/Output Vital Signs: Vital Signs Temperature 97.7 F 04/13/23 11:06 Pulse Rate 87 04/13/23 11:06 Respiratory Rate 16 04/13/23 11:06 Blood Pressure 125/65 04/13/23 11:06 O2 Sat by Pulse Oximetry 96 04/13/23 11:06 Intake & Output: Intake & Output 04/11/23 04/12/23 04/13/23 04/14/23 11:59 11:59 11:59 11:59 Intake Total 1240 1240 Output Total 650 550 Balance 590 690 Weight 50.5 kg 50.7 kg - Lab Result Diagrams: 04/13/23 04:42 04/13/23 04:42 Lab Results-Last 24 Hrs: Lab Results-Last 24 Hours 04/11/23 04/13/23 04/13/23 Range/Units 15:20 04:42 04:42 WBC 6.2 (4.0-10.5) x10^3/uL RBC 4.74 (4.1-5.6) x10^6/uL Hgb 14.5 (12.5-18.0) g/dL Hct 44.2 (42-50) % MCV 93.2 (78-100) fL MCH 30.6 (26-32) pg MCHC 32.8 (32-36) g/dL RDW 13.1 (11.5-14.0) % Plt Count 218 (150-450) x10^3/uL MPV 12.3 H (7.5-11.0) fL Sodium 134 L (137-145) mmol/L Potassium 4.3 (3.5-5.1) mmol/L Chloride 107 (98-107) mmol/L Carbon Dioxide 19 L (22-30) mmol/L Anion Gap 13.0 (5-15) MEQ/L BUN 23 H (9-20) mg/dL Creatinine 0.83 (0.66-1.25) mg/dL Estimated GFR 102.7 ML/MIN Glucose 105 (74-106) mg/dL Lactic Acid (0.4-2.0) Calcium 8.8 (8.4-10.2) mg/dL Total Bilirubin 0.60 (0.2-1.3) mg/dL AST 38 (17-59) U/L ALT 39 (0-50) U/L Alkaline Phosphatase 72 (38-126) U/L C-Reactive Prot, Quant 5 (0-10) mg/L Serum Total Protein 6.9 (6.3-8.2) g/dL Albumin 3.8 (3.5-5.0) g/dL 04/13/23 Range/Units 07:59 WBC (4.0-10.5) x10^3/uL RBC (4.1-5.6) x10^6/uL Hgb (12.5-18.0) g/dL Hct (42-50) % MCV (78-100) fL MCH (26-32) pg MCHC (32-36) g/dL RDW (11.5-14.0) % Plt Count (150-450) x10^3/uL MPV (7.5-11.0) fL Sodium (137-145) mmol/L Potassium (3.5-5.1) mmol/L Chloride (98-107) mmol/L Carbon Dioxide (22-30) mmol/L Anion Gap (5-15) MEQ/L BUN (9-20) mg/dL Creatinine (0.66-1.25) mg/dL Estimated GFR ML/MIN Glucose (74-106) mg/dL Lactic Acid 1.0 (0.4-2.0) Calcium (8.4-10.2) mg/dL Total Bilirubin (0.2-1.3) mg/dL AST (17-59) U/L ALT (0-50) U/L Alkaline Phosphatase (38-126) U/L C-Reactive Prot, Quant (0-10) mg/L Serum Total Protein (6.3-8.2) g/dL Albumin (3.5-5.0) g/dL Micro Results-Entire Visit: Microbiology 04/11/23 18:58 Urine Culture - Final Urine,Suprapubic Escherichia Coli - Procedures and Test Procedures and Tests throughout Hospitalization: Therapy Orders & Screens 04/11/23 14:27 PT Eval & Treat (MD Order) ONCE Reason for Eval:: possible TIA Diagnosis: Blurred vision, facial numbness ST Eval & Treat (MD Order) .as ordered Comment: Physician Instructions: Reason For Exam: possible TIA- MRI in process Evaluate: possible TIA Treat: Yes Reason for Eval: difficulty swallowing Diagnosis: Blurred vision, facial numbness OT Eval and Treat (MD Order) ONCE Comment: Physician Instructions: Reason For Exam: possible TIA Evaluate: Yes Treat: Yes Diagnosis: Blurred vision, facial numbness <ADOLFO MROENO - Last Filed: 04/13/23 20:08> Discharge Exam General Appearance: no apparent distress, alert Neurologic Exam: alert, oriented x 3, cooperative, normal mood/affect, nml cerebellar function, sensation nml, No motor deficits Eye Exam: PERRL, EOMI, eyes nml inspection Ears, Nose, Throat Exam: normal ENT inspection, pharynx normal, moist mucous membranes Neck Exam: normal inspection, non-tender, supple, full range of motion Respiratory Exam: normal breath sounds, lungs clear, No respiratory distress Cardiovascular Exam: regular rate/rhythm, normal heart sounds Gastrointestinal/Abdomen Exam: soft, No tenderness, No mass Male Genitalia Exam: deferred Rectal Exam: deferred Back Exam: normal inspection, normal range of motion, No CVA tenderness, No vertebral tenderness Extremity Exam: normal inspection, normal range of motion Skin Exam: normal color, warm, dry <MIKE MARIEE - Last Filed: 04/13/23 11:42> Final Diagnosis/Problem List - Final Discharge Diagnosis/Problem (1) Blurred vision, bilateral Status: Resolved Assessment & Plan: - Vision has improved but c/o continues abnormal vision changes - CT head 04/11 Impression: Nonacute senile brain. - Neurology consulted in ER and recommended MRI for further evaluation - MRI brain pending - ASA 324 mg gave in ER - Tele - EKG- reviewed - neuro checks Q4 - Neurology recommendations: CBC, CMP, TSH, ESR, CRP, Trop x3, UA Permissive HTN 220/110 If MRI negative restart BP meds PT/OT/Speech ASA 81mg daily 04/12 - MRI brain 04/11 Impression: Atrophy and degenerative micro-ischemia within normal limits for patient's age. No acute intracranial abnormalities or evidence for evolving large vessel territorial stroke. - Sx resolved today Code(s): H53.8 - OTHER VISUAL DISTURBANCES (2) Facial numbness Status: Resolved Assessment & Plan: - resolved Code(s): R20.0 - ANESTHESIA OF SKIN (3) RSV infection Status: Acute Assessment & Plan: - Supportive care Code(s): B33.8 - OTHER SPECIFIED VIRAL DISEASES (4) Anxiety and depression Status: Acute Assessment & Plan: - restarted lexapro - denies suicidal or homicidal ideation Code(s): F41.9 - ANXIETY DISORDER, UNSPECIFIED; F32.A - DEPRESSION, UNSPECIFIED (5) Glaucoma Status: Acute Assessment & Plan: - Continue eye gtts Code(s): H40.9 - UNSPECIFIED GLAUCOMA (6) GERD (gastroesophageal reflux disease) Status: Acute Assessment & Plan: - Continue omeprazole Code(s): K21.9 - GASTRO-ESOPHAGEAL REFLUX DISEASE WITHOUT ESOPHAGITIS (7) Complicated UTI (urinary tract infection) Status: Acute Assessment & Plan: - Changed Bactrim to Levaquin - Chronic suprapubic cath changed Q2 weeks. - due to be changed this Monday per pt - Recently had 2 UTI infections in the past 2 moths - gram negative- ID and sensitivity pending 04/13 - + for e-coli - Cont. Levaquin Op PO Code(s): N39.0 - URINARY TRACT INFECTION, SITE NOT SPECIFIED (8) HTN (hypertension) Status: Acute Assessment & Plan: - BP improved with Coreg Code(s): I10 - ESSENTIAL (PRIMARY) HYPERTENSION (9) Carbon dioxide, decreased level Status: Acute Assessment & Plan: - Carbon dioxide 19- improved from yesterday - Lactic acid normal - no N/V/D - started sodium bicarb BID- will continue for 2 days OP - Will need BMP checked with PCP next week Code(s): R79.81 - ABNORMAL BLOOD-GAS LEVEL (10) Gangrene of colon Status: Resolved Assessment & Plan: - Pt does not have this per records from - Pt reports he does have this, I think he may have misunderstood Code(s): K55.049 - ACUTE INFARCTION OF LARGE INTESTINE, EXTENT UNSPECIFIED <MIKE MARIEE - Last Filed: 04/13/23 11:42> - Discharge Discharge Date: 04/13/23 <MIKE MARIEE - Last Filed: 04/13/23 11:42> <ADOLFO MORENO - Last Filed: 04/13/23 20:08> - Discharge Disposition: Home, Self-Care Condition: Stable Prescriptions: New Sodium Bicarbonate 650 mg PO BID 3 Days #3 tablet Levofloxacin [Levofloxacin 250MG Tablet] 250 mg PO DAILY 3 Days #3 tab Levofloxacin [Levofloxacin 500 MG Tablet] 500 mg PO DAILY 3 Days #3 tablet Continue Spironolactone 25 mg PO DAILY Omeprazole 40 mg PO DAILY Escitalopram Oxalate [Lexapro] 10 mg PO DAILY Latanoprost [Xalatan] 1 drop OP HS Discontinued Smz/Tmp Ds Tablet [Bactrim Ds Tablet] 1 tab PO BID Outpatient Orders: BMP Location: None Selected Instructions: Urinary Tract Infection, Adult (DC), Respiratory Syncytial Virus, Adult (DC), Paresthesia (DC) Additional Instructions: Dr. Guallpa doesn't have any available appointments for next week. Please follow up with Dr. Downey, with [facility], at [address] [place] [address] on 04/19/2023 at 11:15 a.m. Forms: Discharge Instructions GLENN Encounter - GLENN Encounter Attestation GLENN Encounter Attestation: "MCKAY Jordan andhavediscussed pertinent aspects of their care with Mike Mariee and agree with the history, physical exam (any modifications based on my personal exam will be noted below), assessment, and plan as outlined in original note. Please see immediately below for my summary of findings and additional assessment and plan along with any meaningful corrections/explanations to the Subjective/Objective portions of the GLENN note will be noted." My portion of the encounter took place via telemedicine. <ADOLFO MORENO - Last Filed: 04/13/23 20:08>
== END 2023-04-13 12:15 | disposition home or self-care (01) ==
LOC: ED 11:02 → MED SURG 13:07
PROVIDERS: ADMIT Internal Medicine; ATTEND Internal Medicine
DX: H53.8 Other visual disturbances (principal); R20.0 Anesthesia of skin; B33.8 Other specified viral diseases; F41.9 Anxiety disorder, unspecified; H40.9 Unspecified glaucoma; K21.9 Gastro-esophageal reflux disease without esophagitis; N39.0 Urinary tract infection, site not specified; A49.8 Other bacterial infections of unspecified site; I10 Essential (primary) hypertension; R79.81 Abnormal blood-gas level; K55.049 Acute infarction of large intestine, extent unspecified; I25.2 Old myocardial infarction; Z79.899 Other long term (current) drug therapy; Z20.828 Contact with and (suspected) exposure to other viral communicable diseases
CPT/HCPCS: 0241U; 36000; 36415; 70450; 70551; 80053; 81001; 82947; 83605; 84134; 84443; 84484; 85025; 85027; 85652; 86140; 87077; 87086; 87186; 92610; 93005; 93041; 94760; 97161; 97166; 99285; 93268; J1956; Q3014; A9270-GY; G0378

== ENCOUNTER 2023-08-08 13:35 | Observation (INO) | payer MEDICARE ==
[2023-08-08] MEDS ORDERED: TYLENOL 325 MG ONE (13:58)
[2023-08-08] MEDS: Sodium Chloride 0.9% 1000 ML 1,000 ML IV SCH (14:00)
[2023-08-08] MEDS: TYLENOL 325 MG PO ONE (14:00)
--- NOTE | 2023-08-08 14:23 | XRAY ---
Indication: Numbness. Multiple contiguous axial images obtained through the head without contrast. Comparison: April 11, 2023 Again age-appropriate global atrophy, moderate periventricular degenerative micro-ischemia bilaterally, and prominent lateral ventricles. No acute intracranial hemorrhage, abnormal extra-axial fluid collection, or mass effect. Again incidental cavum septum pellucidum. Fourth ventricle is midline. Bony calvarium intact. Visualized paranasal sinuses and mastoid air cells are clear. Impression: Continued nonacute senile brain.
[2023-08-08 14:44] LABS: Absolute Neutrophil Ct (ANC) 10.65 x10^3/uL (1.4-6.9); BASOPHIL % 0.2 % (0.0-0.4); Basophil (Absolute #) 0.03 x10^3/uL (0-0.4); Eosinophil % 0.1 % (0.00-5.0); Eosinophil (Absolute #) 0.01 x10^3/uL (0-0.5); Hematocrit 38.3 % (42-50); IMMATURE GRAN # 0.07 x10^3u/L (0.00-0.03); IMMATURE GRAN % 0.5 % (0.00-0.4); Lymphocyte (Absolute #) 1.01 x10^3/uL (1.0-4.6); Lymphocytes % 7.9 % (24.0-44.0); Mean Cell Volume 88.5 fL (78-100); Mean Corpuscular Hemoglobin 27.7 pg (26-32); Mean Corpuscular Hgb Concent. 31.3 g/dL (32-36); Mean Platelet Volume 11.9 fL (7.5-11.0); Monocyte (Absolute #) 1.03 x10^3/uL (0.0-1.3); Neutrophil % 83.3 % (36.0-66.0); Platelet Count 260 x10^3/uL (150-450); Red Blood Count 4.33 x10^6/uL (4.1-5.6); White Blood Count 12.8 x10^3/uL (4.0-10.5)
[2023-08-08 14:53] LABS: ALBUMIN 3.9 g/dL (3.5-5.0); ANION GAP 12.7 MEQ/L (5-15); BILIRUBIN,TOTAL 0.3 mg/dL (0.2-1.3); Calcium 8.8 mg/dL (8.4-10.2); Creatinine 1 1.02 mg/dL (0.66-1.25); EST GLOMERULAR FILTRATION RATE 85.7 ML/MIN; Potassium 3.6 mmol/L (3.5-5.1); Total Protein 7.4 g/dL (6.3-8.2)
[2023-08-08 15:21] LABS: INFLUENZA A NEGATIVE (NEGATIVE); INFLUENZA B NEGATIVE (NEGATIVE); RESPIRATORY SYNCTIAL VIRUS NEGATIVE (NEGATIVE); SARS-CoV-2 Xpert Express NEGATIVE (NEGATIVE)
[2023-08-08 16:22] LABS: Appearance Turbid (Clear); Bacteria Many /HPF (None Seen); Bilirubin Negative (Negative); Blood Small (Negative); Epithelial Cells Rare /HPF (None Seen); Glucose, Urine Negative (Negative); Ketones Negative (Negative); Leukocyte Esterase Moderate (Negative); Nitrite Positive (Negative); Protein,Urine Dip 100 (Negative); Specific Gravity 1.015 (1.005-1.030); Urobilinogen 0.2 mg/dL (0.2); WBC >100 /HPF (0-5)
[2023-08-08 16:23] LABS: ADD URINE CULTURE? ORDERED SEPARATELY (NO); Hyaline Casts 20-50 /LPF (0-2)
[2023-08-08] MEDS ORDERED: BABY ASPIRIN 81 MG CHEW ONE (16:33)
[2023-08-08] MEDS ORDERED: PLAVIX Tablet ONE (16:34)
[2023-08-08] MEDS: PLAVIX Tablet PO ONE (16:36)
[2023-08-08] MEDS: BABY ASPIRIN 81 MG CHEW PO ONE (16:36)
--- NOTE | 2023-08-08 16:47 | ERPHSYRPT ---
- History of Present Illness Time Seen by Provider: 08/08/23 13:50 Source: patient Exam Limitations: no limitations Patient Subjective Stated Complaint: PT states "I fell this morning at 5 am. I got a little dizzy and fell. I cannot feel my left side. I am paralyzed on my right and normally cannot feel it but now my left is numb. the last time this happened I had RSV" Triage Nursing Assessment: PT presented alert and oriented X 3, skin pwd. Pt able to speak in clear full sentences. PT in no apparent respiratory distress. PT right side is contractured and no movement or feeling noted. Physician History: 58-year-old male history of cerebral palsy affecting his right upper and lower extremity started today at 5 AM. Patient has a colostomy and a suprapubic catheter. Presents to the emergency department for evaluation of numbness to left upper and left lower extremity. Patient states the last time this happened he was RSV positive. Patient advises that he fell however there is no injury from the fall. No fever no nausea or vomiting no diarrhea no rash. Symptoms are constant. Symptoms are moderate in intensity. No specific worsening improving factors. Patient voices no other complaints or concerns at this time. Portions of this note were created with voice recognition technology. There may be grammatical, spelling, punctuation or sound alike errors Timing/Duration: today Severity: moderate Modifying Factors: Improves With: nothing Associated Symptoms: denies symptoms Allergies/Adverse Reactions: diazepam [From Valium] Allergy (Verified 04/11/23 11:26) Penicillins Allergy (Verified 04/11/23 11:26) Home Medications: Omeprazole 40 mg PO DAILY 01/17/20 [History] Spironolactone 25 mg PO DAILY 01/17/20 [History] Escitalopram Oxalate [Lexapro] 10 mg PO DAILY 04/11/23 [History] Latanoprost [Xalatan] 1 drop OP HS 04/11/23 [History] Hx Tetanus, Diphtheria Vaccination/Date Given: Yes Hx Influenza Vaccination/Date Given: No Hx Pneumococcal Vaccination/Date Given: No Immunizations Up to Date: No Travel Risk - International Travel Have you traveled outside of the country in past 3 weeks: No - Emerging Infectious Disease Are you exhibiting symptoms associated with any current EIDs: No - Review of Systems Constitutional: No Symptoms, No Fever, No Chills Eyes: No Symptoms Ears, Nose, & Throat: No Symptoms Respiratory: No Symptoms, No Cough, No Dyspnea Cardiac: No Symptoms, No Chest Pain, No Edema, No Syncope Abdominal/Gastrointestinal: No Symptoms, No Abdominal Pain, No Nausea, No Vomiting, No Diarrhea Genitourinary Symptoms: No Symptoms, No Dysuria Musculoskeletal: No Symptoms, No Back Pain, No Neck Pain Skin: No Symptoms, No Rash Neurological: No Symptoms, No Dizziness, No Focal Weakness, No Sensory Changes Psychological: No Symptoms Endocrine: No Symptoms Hematologic/Lymphatic: No Symptoms Immunological/Allergic: No Symptoms All Other Systems: Reviewed and Negative - Past Medical History Pertinent Past Medical History: Yes Neurological History: Migraines, Seizures ENT History: Glaucoma Cardiac History: Arrhythmia, Myocardial Infarction (MD) Respiratory History: Pneumonia Endocrine Medical History: No Pertinent History Musculoskeletal History: Arthritis GI Medical History: Esophageal Disorder, GERD, Ulcer History: Other Psycho-Social History: Anxiety, Depression, Panic Disorder Male Reproductive Disorders: Prostate Problems Other Medical History: cerabral palsy, diff urinating - Past Surgical History Past Surgical History: Yes Neuro Surgical History: No Pertinent History Cardiac: No Pertinent History Respiratory: No Pertinent History Gastrointestinal: No Pertinent History Genitourinary: No Pertinent History Musculoskeletal: Orthopedic Surgery Male Surgical History: No Pertinent History Other Surgical History: 49 corrective surgeries, 5 hip surgergies,legs feet ankles rt hand surgeries,tonsils - Social History Smoking Status: Never smoker Exposure to second hand smoke: Yes Drug Use: none Patient Lives Alone: Yes - Nursing Vital Signs Nursing Vital Signs: Initial Vital Signs Temperature 102.0 F 08/08/23 13:40 Pulse Rate 110 H 08/08/23 13:40 Respiratory Rate 22 08/08/23 13:40 Blood Pressure 138/93 08/08/23 13:40 O2 Sat by Pulse Oximetry 96 08/08/23 13:40 Pain Scale Pain Intensity 0 - Physical Exam General Appearance: no apparent distress, alert Eye Exam: PERRL/EOMI, eyes nml inspection Ears, Nose, Throat Exam: normal ENT inspection, TMs normal, pharynx normal, moist mucous membranes Neck Exam: normal inspection, non-tender, supple, full range of motion Respiratory Exam: normal breath sounds, lungs clear, airway intact, No respiratory distress Cardiovascular Exam: regular rate/rhythm, normal heart sounds, normal peripheral pulses Gastrointestinal/Abdomen Exam: soft, normal bowel sounds, No tenderness, No mass Back Exam: normal inspection, normal range of motion, No CVA tenderness, No vertebral tenderness Extremity Exam: normal inspection, normal range of motion, pelvis stable Neurologic Exam: alert, oriented x 3, cooperative, normal mood/affect, sensation nml, No motor deficits Skin Exam: normal color, warm, dry, No rash Lymphatic Exam: No adenopathy SpO2 Interpretation: normal SpO2: 95 O2 Delivery: Room Air - Course Nursing assessment & vital signs reviewed: Yes - CT Exams Head CT Interpretation: Tele-radiologist Report (Nonacute senile brain) Ordered Tests: Active Orders 24 hr Category Date Time Status Loss Prevention Leader STAT Care 08/08/23 13:55 Active EKG-ER Only STAT Care 08/08/23 13:55 Active IV Insertion STAT Care 08/08/23 13:55 Active Pulse Oximetry (ED) STAT Care 08/08/23 13:55 Active Tele-Health Consult ROUTINE Cons 08/08/23 15:34 Active HEAD WITHOUT CONTRAST [CT] Stat Exams 08/08/23 13:55 Completed BLOOD CULTURE Stat Lab 08/08/23 13:55 Received CBC W DIFF Stat Lab 08/08/23 14:40 Completed CMP Stat Lab 08/08/23 14:40 Completed CULTURE,URINE Stat Lab 08/08/23 15:30 Received Lactic Acid Stat Lab 08/08/23 13:55 Completed UA W/RFX UR CULTURE Stat Lab 08/08/23 15:30 Completed Medication Summary Generic Name Dose Route Start Last Admin Trade Name Freq PRN Reason Stop Dose Admin Sodium Chloride 1,000 mls @ 100 mls/hr 08/08/23 14:00 08/08/23 14:00 Sodium Chloride 0.9% 1000 Ml IV 09/07/23 13:59 100 mls/hr .Q10H MONA Administration Discontinued Medications Generic Name Dose Route Start Last Admin Trade Name Freq PRN Reason Stop Dose Admin Acetaminophen 975 mg 08/08/23 13:57 08/08/23 14:00 Acetaminophen 325 Mg Tablet PO 08/08/23 13:58 975 mg STAT ONE Administration Acetaminophen Confirm 08/08/23 13:58 Acetaminophen 325 Mg Tablet Administered 08/08/23 13:59 Dose 975 mg .ROUTE .STK-MED ONE Aspirin 81 mg 08/08/23 16:30 08/08/23 16:36 Aspirin 81 Mg Tab.Chew PO 08/08/23 16:31 81 mg STAT ONE Administration Aspirin Confirm 08/08/23 16:33 Aspirin 81 Mg Tab.Chew Administered 08/08/23 16:34 Dose 81 mg .ROUTE .STK-MED ONE Clopidogrel Bisulfate 75 mg 08/08/23 16:30 08/08/23 16:36 Clopidogrel Bisulfate 75 Mg Tablet PO 08/08/23 16:31 75 mg STAT ONE Administration Clopidogrel Bisulfate Confirm 08/08/23 16:34 Clopidogrel Bisulfate 75 Mg Tablet Administered 08/08/23 16:35 Dose 75 mg .[facility]TE [facility] Lab/Rad Data: Laboratory Result Diagrams 08/08/23 14:40 08/08/23 14:40 Laboratory Results 08/08/23 08/08/23 08/08/23 Range/Units 15:30 14:40 14:40 WBC (4.0-10.5) x10^3/uL RBC (4.1-5.6) x10^6/uL Hgb (12.5-18.0) g/dL Hct (42-50) % MCV (78-100) fL MCH (26-32) pg MCHC (32-36) g/dL RDW (11.5-14.0) % Plt Count (150-450) x10^3/uL MPV (7.5-11.0) fL Gran % (36.0-66.0) % Immature Gran % (Auto) (0.00-0.4) % Nucleat RBC Rel Count (0.00-0.1) % Eos # (Auto) (0-0.5) x10^3/uL Immature Gran # (Auto) (0.00-0.03) x10^3u/L Absolute Lymphs (auto) (1.0-4.6) x10^3/uL Absolute Monos (auto) (0.0-1.3) x10^3/uL Absolute Nucleated RBC (0.00-0.01) x10^3u/L Lymphocytes % (24.0-44.0) % Monocytes % (0.0-12.0) % Eosinophils % (0.00-5.0) % Basophils % (0.0-0.4) % Absolute Granulocytes (1.4-6.9) x10^3/uL Basophils # (0-0.4) x10^3/uL Sodium 137 (135-145) mmol/L Potassium 3.6 (3.5-5.1) mmol/L Chloride 107 (98-107) mmol/L Carbon Dioxide 20 L (22-30) mmol/L Anion Gap 12.7 (5-15) MEQ/L BUN 13 (9-20) mg/dL Creatinine 1.02 (0.66-1.25) mg/dL Estimated GFR 85.7 ML/MIN Glucose 93 (74-106) mg/dL Lactic Acid (0.4-2.0) Calcium 8.8 (8.4-10.2) mg/dL Total Bilirubin 0.30 (0.2-1.3) mg/dL AST 44 (17-59) U/L ALT 33 (0-50) U/L Alkaline Phosphatase 128 H (38-126) U/L Serum Total Protein 7.4 (6.3-8.2) g/dL Albumin 3.9 (3.5-5.0) g/dL Urine Color Yellow (Yellow) Urine Appearance Turbid A (Clear) Urine pH 7.0 (4.6-8.0) Ur Specific [place] 1.015 (1.005-1.030) Urine Protein 100 A (Negative) Urine Glucose (UA) Negative (Negative) mg/dL Urine Ketones Negative (Negative) Urine Blood Small A (Negative) Urine Nitrite Positive A (Negative) Urine Bilirubin Negative (Negative) Urine Urobilinogen 0.2 (0.2) mg/dL Ur Leukocyte Esterase Moderate A (Negative) U Hyaline Cast (Auto) 20-50 (0-2) /LPF Urine Microscopic RBC 11-20 A (0-5) /HPF Urine Microscopic WBC >100 A (0-5) /HPF Ur Epithelial Cells Rare (None Seen) /HPF Urine Bacteria Many A (None Seen) /HPF Urine Culture Reflexed ORDERED SEPARATELY (NO) Influenza Type A Ag NEGATIVE (NEGATIVE) Influenza Type B Ag NEGATIVE (NEGATIVE) RSV (PCR) NEGATIVE (NEGATIVE) SARS-CoV-2 (PCR) NEGATIVE (NEGATIVE) 08/08/23 08/08/23 Range/Units 14:40 13:55 WBC 12.8 H (4.0-10.5) x10^3/uL RBC 4.33 (4.1-5.6) x10^6/uL Hgb 12.0 L (12.5-18.0) g/dL Hct 38.3 L (42-50) % MCV 88.5 (78-100) fL MCH 27.7 (26-32) pg MCHC 31.3 L (32-36) g/dL RDW 16.0 H (11.5-14.0) % Plt Count 260 (150-450) x10^3/uL MPV 11.9 H (7.5-11.0) fL Gran % 83.3 H (36.0-66.0) % Immature Gran % (Auto) 0.5 H (0.00-0.4) % Nucleat RBC Rel Count 0.0 (0.00-0.1) % Eos # (Auto) 0.01 (0-0.5) x10^3/uL Immature Gran # (Auto) 0.07 H (0.00-0.03) x10^3u/L Absolute Lymphs (auto) 1.01 (1.0-4.6) x10^3/uL Absolute Monos (auto) 1.03 (0.0-1.3) x10^3/uL Absolute Nucleated RBC 0.00 (0.00-0.01) x10^3u/L Lymphocytes % 7.9 L (24.0-44.0) % Monocytes % 8.0 (0.0-12.0) % Eosinophils % 0.1 (0.00-5.0) % Basophils % 0.2 (0.0-0.4) % Absolute Granulocytes 10.65 H (1.4-6.9) x10^3/uL Basophils # 0.03 (0-0.4) x10^3/uL Sodium (135-145) mmol/L Potassium (3.5-5.1) mmol/L Chloride (98-107) mmol/L Carbon Dioxide (22-30) mmol/L Anion Gap (5-15) MEQ/L BUN (9-20) mg/dL Creatinine (0.66-1.25) mg/dL Estimated GFR ML/MIN Glucose (74-106) mg/dL Lactic Acid 1.2 (0.4-2.0) Calcium (8.4-10.2) mg/dL Total Bilirubin (0.2-1.3) mg/dL AST (17-59) U/L ALT (0-50) U/L Alkaline Phosphatase (38-126) U/L Serum Total Protein (6.3-8.2) g/dL Albumin (3.5-5.0) g/dL Urine Color (Yellow) Urine Appearance (Clear) Urine pH (4.6-8.0) Ur Specific [place] (1.005-1.030) Urine Protein (Negative) Urine Glucose (UA) (Negative) mg/dL Urine Ketones (Negative) Urine Blood (Negative) Urine Nitrite (Negative) Urine Bilirubin (Negative) Urine Urobilinogen (0.2) mg/dL Ur Leukocyte Esterase (Negative) U Hyaline Cast (Auto) (0-2) /LPF Urine Microscopic RBC (0-5) /HPF Urine Microscopic WBC (0-5) /HPF Ur Epithelial Cells (None Seen) /HPF Urine Bacteria (None Seen) /HPF Urine Culture Reflexed (NO) Influenza Type A Ag (NEGATIVE) Influenza Type B Ag (NEGATIVE) RSV (PCR) (NEGATIVE) SARS-CoV-2 (PCR) (NEGATIVE) - Progress Progress: improved Progress Note: 58-year-old male presents to our ED for evaluation of numbness to the left upper lower extremity. CT head shows no acute findings. Teleneurologist feels patient should be admitted for MRI/MRA. Teleneurologist advised aspirin and Plavix. Both ordered and administered. I discussed the case with the teleneurologist at 3:46 PM. I spoke to hospitalist at 4:40 PM. Hospitalist accepts admission to observation. Plan of care discussed with patient. Patient agrees to admission to [facility] for further evaluation and treatment. Portions of this note were created with voice recognition technology. There may be grammatical, spelling, punctuation or sound alike errors Complexity problem addressed is moderate acute complicated No critical care time Complex of data reviewed and analyzed is extensive. Test ordered test reviewed. Results analyzed and correlated clinically with history and physical exami nation. Management discussed with both neurologist and hospitalist. Risk of complication and or risk of morbidity/mortality of patient management is high. Patient requires hospitalization for further evaluation and treatment. Vital stable. Time spent admit patient is approximately 30 minutes. Plan of care established for shared decision making. No social determinants of health present impede follow-up. 08/08/23 16:44 Will see patient in: hospital (observation) Counseled pt/family regarding: lab results - Departure Departure Disposition: Observation Clinical Impression: Stroke, Numbness on left side, UTI (urinary tract infection) Condition: Stable Critical Care Time: No Referrals: MARQUES GUALLPA MD [Primary Care Provider] - Follow up/PCP as directed
[2023-08-08] MEDS ORDERED: Levofloxacin 500MG/100ML D5W 500 MG/100 ML BAG IV ONE (16:59)
[2023-08-08] MEDS: Levofloxacin 500MG/100ML D5W 500 MG/100 ML BAG IV STA (17:01)
--- NOTE | 2023-08-08 19:22 | PCM.HP ---
History of Present Illness - Chief Complaint Chief Complaint: Stroke, left side numbness, UTI Date: 08/08/23 (18:20) History of Present Illness: is a 58 year old male who is admitted with left sided numbness. He reports he is unable to feel anything on the left side. He denies weakness. He reports a little trouble swallowing. No problems with speech. No headache. No change in vision or hearing. His numbness started early this am and is persisting. He has been admitted with similar symptoms in the past. He was seen by Neurology and they recommended MRI. The patient denies fever or sore throat. No cough or dyspnea. No chest pain. No abdominal pain. No nausea or vomiting. He has colostomy and urostomy bags and has no symptoms related. PMH includes Cerebral Palsy, seizure disorder, HTN, CAD, BPH, and gastric ulcer. - Review of Systems Constitutional: No Symptoms, No Fever, No Chills, No Fatigue Eyes: No Symptoms Ears, Nose, & Throat: No Symptoms Respiratory: No Symptoms, No Cough, No Short Of Breath Cardiac: No Symptoms, No Chest Pain Abdominal/Gastrointestinal: No Symptoms, No Abdominal Pain, No Nausea, No Vomiting Genitourinary Symptoms: No Symptoms Musculoskeletal: No Symptoms Skin: No Symptoms Neurological: Sensory Changes, No Dizziness, No Focal Weakness, No Gait Changes, No Headache Psychological: No Symptoms Endocrine: No Symptoms Hematologic/Lymphatic: No Symptoms Immunological/Allergic: No Symptoms All Other Systems: Reviewed and Negative Medications & Allergies Home Medications: Home Medication List Omeprazole 40 mg PO DAILY 01/17/20 [History Confirmed 08/08/23] Spironolactone 25 mg PO DAILY 01/17/20 [History Confirmed 08/08/23] Escitalopram Oxalate [Lexapro] 10 mg PO DAILY 04/11/23 [History Confirmed 08/08/23] Latanoprost [Xalatan] 1 drop OP HS 04/11/23 [History Confirmed 08/08/23] Sodium Bicarbonate 650 mg PO BID 3 Days #3 tablet 04/13/23 [Rx Confirmed 08/08/23] Allergies/Adverse Reactions: Allergies Allergy/AdvReac Type Severity Reaction Status Date / Time diazepam [From Valium] Allergy Verified 04/11/23 11:26 Penicillins Allergy Verified 04/11/23 11:26 - Past Medical History Past Medical History: Yes Neurological History: Migraines, Seizures ENT History: Glaucoma Cardiac History: Arrhythmia, Myocardial Infarction (MD) Respiratory History: Pneumonia Endocrine Medical History: No Pertinent History Musculoskelatal History: Arthritis GI Medical History: Esophageal Disorder, GERD, Ulcer History: Other Pyscho-Social History: Anxiety, Depression, Panic Disorder Male Reproductive Disorders: Prostate Problems Comment: cerabral palsy, kidney failure, cancer polyps in bowels - Past Surgical History Past Surgical History: Yes Neuro Surgical History: No Pertinent History Cardiac History: No Pertinent History Respiratory Surgery: No Pertinent History GI Surgical History: Other Genitourinary Surgical Hx: Other Musculskeletal Surgical Hx: Orthopedic Surgery Male Surgical History: No Pertinent History Other Surgical History: colostomy, urostomy, right arm surgery, right leg surgery. (50 corrective surgeries) - Social History Smoking Status: Never smoker Exposure to second hand smoke: No Alcohol: Occasionally Drug Use: none - Social Determinants of Health Will the patient participate in the screening: Yes Do you worry about a steady place to live?: No Do you have any problems with any of the following?: No known problems In the past 12 months,have you had to go without utilities?: No Have you or anyone in your house had to go without enough: No Transportation Issues: Yes Has anyone in your support network made you feel unsafe?: No Does the patient want assistance with any of the above?: Yes Comment: Pt needs help with transportation - Physical Exam Vital Signs: Vital Signs - 24 hr Temp Pulse Resp BP BP Pulse Ox 08/08/23 18:09 98.2 F 98 H 18 128/82 99 08/08/23 17:01 95 08/08/23 17:00 95 H 28 H 150/112 08/08/23 16:45 90 26 H 143/82 08/08/23 16:30 95 H 20 134/89 08/08/23 16:15 98 H 27 H 137/87 08/08/23 16:00 108 H 28 H 134/99 95 08/08/23 15:45 107 H 28 H 134/90 97 08/08/23 15:30 110 H 29 H 135/99 100 08/08/23 15:15 103 H 32 H 127/90 08/08/23 15:00 104 H 33 H 134/87 96 08/08/23 14:45 103 H 30 H 131/93 96 08/08/23 14:30 104 H 28 H 144/88 95 08/08/23 14:22 97 08/08/23 14:15 99 H 35 H 143/102 98 08/08/23 14:00 138/97 08/08/23 13:45 112 H 28 H 134/93 08/08/23 13:40 102.0 F 110 H 22 138/93 96 General Appearance: no apparent distress, thin Neurologic Exam: alert, oriented x 3, cooperative, freight traffic consultant II-XII nml as tested, normal mood/affect Eye Exam: PERRL/EOMI, eyes nml inspection Ears, Nose, Throat Exam: normal ENT inspection Neck Exam: normal inspection, non-tender, supple Respiratory Exam: normal breath sounds Cardiovascular Exam: regular rate/rhythm, normal heart sounds Gastrointestinal/Abdomen Exam: soft, normal bowel sounds Rectal Exam: deferred Back Exam: normal inspection Extremity Exam: other (contractions) Skin Exam: normal color, warm, dry Lymphatic Exam: No adenopathy Results - Labs Lab/Micro Results: Lab Results-Last 24 Hours 08/08/23 08/08/23 08/08/23 Range/Units 13:55 14:40 14:40 WBC 12.8 H (4.0-10.5) x10^3/uL RBC 4.33 (4.1-5.6) x10^6/uL Hgb 12.0 L (12.5-18.0) g/dL Hct 38.3 L (42-50) % MCV 88.5 (78-100) fL MCH 27.7 (26-32) pg MCHC 31.3 L (32-36) g/dL RDW 16.0 H (11.5-14.0) % Plt Count 260 (150-450) x10^3/uL MPV 11.9 H (7.5-11.0) fL Gran % 83.3 H (36.0-66.0) % Immature Gran % (Auto) 0.5 H (0.00-0.4) % Nucleat RBC Rel Count 0.0 (0.00-0.1) % Eos # (Auto) 0.01 (0-0.5) x10^3/uL Immature Gran # (Auto) 0.07 H (0.00-0.03) x10^3u/L Absolute Lymphs (auto) 1.01 (1.0-4.6) x10^3/uL Absolute Monos (auto) 1.03 (0.0-1.3) x10^3/uL Absolute Nucleated RBC 0.00 (0.00-0.01) x10^3u/L Lymphocytes % 7.9 L (24.0-44.0) % Monocytes % 8.0 (0.0-12.0) % Eosinophils % 0.1 (0.00-5.0) % Basophils % 0.2 (0.0-0.4) % Absolute Granulocytes 10.65 H (1.4-6.9) x10^3/uL Basophils # 0.03 (0-0.4) x10^3/uL Sodium 137 (135-145) mmol/L Potassium 3.6 (3.5-5.1) mmol/L Chloride 107 (98-107) mmol/L Carbon Dioxide 20 L (22-30) mmol/L Anion Gap 12.7 (5-15) MEQ/L BUN 13 (9-20) mg/dL Creatinine 1.02 (0.66-1.25) mg/dL Estimated GFR 85.7 ML/MIN Glucose 93 (74-106) mg/dL Lactic Acid 1.2 (0.4-2.0) Calcium 8.8 (8.4-10.2) mg/dL Total Bilirubin 0.30 (0.2-1.3) mg/dL AST 44 (17-59) U/L ALT 33 (0-50) U/L Alkaline Phosphatase 128 H (38-126) U/L Serum Total Protein 7.4 (6.3-8.2) g/dL Albumin 3.9 (3.5-5.0) g/dL Urine Color (Yellow) Urine Appearance (Clear) Urine pH (4.6-8.0) Ur Specific [place] (1.005-1.030) Urine Protein (Negative) Urine Glucose (UA) (Negative) mg/dL Urine Ketones (Negative) Urine Blood (Negative) Urine Nitrite (Negative) Urine Bilirubin (Negative) Urine Urobilinogen (0.2) mg/dL Ur Leukocyte Esterase (Negative) U Hyaline Cast (Auto) (0-2) /LPF Urine Microscopic RBC (0-5) /HPF Urine Microscopic WBC (0-5) /HPF Ur Epithelial Cells (None Seen) /HPF Urine Bacteria (None Seen) /HPF Urine Culture Reflexed (NO) Influenza Type A Ag (NEGATIVE) Influenza Type B Ag (NEGATIVE) RSV (PCR) (NEGATIVE) SARS-CoV-2 (PCR) (NEGATIVE) 08/08/23 08/08/23 Range/Units 14:40 15:30 WBC (4.0-10.5) x10^3/uL RBC (4.1-5.6) x10^6/uL Hgb (12.5-18.0) g/dL Hct (42-50) % MCV (78-100) fL MCH (26-32) pg MCHC (32-36) g/dL RDW (11.5-14.0) % Plt Count (150-450) x10^3/uL MPV (7.5-11.0) fL Gran % (36.0-66.0) % Immature Gran % (Auto) (0.00-0.4) % Nucleat RBC Rel Count (0.00-0.1) % Eos # (Auto) (0-0.5) x10^3/uL Immature Gran # (Auto) (0.00-0.03) x10^3u/L Absolute Lymphs (auto) (1.0-4.6) x10^3/uL Absolute Monos (auto) (0.0-1.3) x10^3/uL Absolute Nucleated RBC (0.00-0.01) x10^3u/L Lymphocytes % (24.0-44.0) % Monocytes % (0.0-12.0) % Eosinophils % (0.00-5.0) % Basophils % (0.0-0.4) % Absolute Granulocytes (1.4-6.9) x10^3/uL Basophils # (0-0.4) x10^3/uL Sodium (135-145) mmol/L Potassium (3.5-5.1) mmol/L Chloride (98-107) mmol/L Carbon Dioxide (22-30) mmol/L Anion Gap (5-15) MEQ/L BUN (9-20) mg/dL Creatinine (0.66-1.25) mg/dL Estimated GFR ML/MIN Glucose (74-106) mg/dL Lactic Acid (0.4-2.0) Calcium (8.4-10.2) mg/dL Total Bilirubin (0.2-1.3) mg/dL AST (17-59) U/L ALT (0-50) U/L Alkaline Phosphatase (38-126) U/L Serum Total Protein (6.3-8.2) g/dL Albumin (3.5-5.0) g/dL Urine Color Yellow (Yellow) Urine Appearance Turbid A (Clear) Urine pH 7.0 (4.6-8.0) Ur Specific [place] 1.015 (1.005-1.030) Urine Protein 100 A (Negative) Urine Glucose (UA) Negative (Negative) mg/dL Urine Ketones Negative (Negative) Urine Blood Small A (Negative) Urine Nitrite Positive A (Negative) Urine Bilirubin Negative (Negative) Urine Urobilinogen 0.2 (0.2) mg/dL Ur Leukocyte Esterase Moderate A (Negative) U Hyaline Cast (Auto) 20-50 (0-2) /LPF Urine Microscopic RBC 11-20 A (0-5) /HPF Urine Microscopic WBC >100 A (0-5) /HPF Ur Epithelial Cells Rare (None Seen) /HPF Urine Bacteria Many A (None Seen) /HPF Urine Culture Reflexed ORDERED SEPARATELY (NO) Influenza Type A Ag NEGATIVE (NEGATIVE) Influenza Type B Ag NEGATIVE (NEGATIVE) RSV (PCR) NEGATIVE (NEGATIVE) SARS-CoV-2 (PCR) NEGATIVE (NEGATIVE) - Radiology Impressions Radiology Exams & Impressions: Radiology Procedures Category Date Time Status HEAD WITHOUT CONTRAST [CT] Stat Exams 08/08/23 13:55 Completed Assessment/Plan (1) Numbness on left side Current Visit: Yes Status: Acute Assessment & Plan: CT head negative Seen by Neurology and MRI recommended Note patient has been admitted with similar problems in the past If MRI of head is negative, will image neck Code(s): R20.0 - ANESTHESIA OF SKIN (2) Seizure disorder Current Visit: Yes Status: Acute Assessment & Plan: Continue home meds Code(s): G40.909 - EPILEPSY, UNSP, NOT INTRACTABLE, WITHOUT STATUS EPILEPTICUS (3) CAD (coronary artery disease) Current Visit: Yes Status: Chronic Assessment & Plan: Continue home meds Code(s): I25.10 - ATHSCL HEART DISEASE OF [place] CORONARY ARTERY W/O ANG PCTRS (4) BPH (benign prostatic hyperplasia) Current Visit: Yes Status: Chronic Assessment & Plan: No treatment Patient has urostomy Code(s): N40.0 - BENIGN PROSTATIC HYPERPLASIA WITHOUT LOWER URINRY TRACT SYMP (5) UTI (urinary tract infection) Current Visit: Yes Status: Acute Assessment & Plan: Complicated UTI No symptoms. Has urostomhy bag Check urine culture Will not start antibiotics at this time as I think this is chronic Code(s): N39.0 - URINARY TRACT INFECTION, SITE NOT SPECIFIED (6) HTN (hypertension) Current Visit: No Status: Chronic Assessment & Plan: Continue home meds Code(s): I10 - ESSENTIAL (PRIMARY) HYPERTENSION Telemedicine Encounter - Telemedicine Encounter Telemedicine Encounter: The entirety of this encounter was performed via Telemedicine" after consent obtained. Labs and imaging reviewed. Discussed with ER provider and neurology Complex medical decision making Jamar Castillo MD [facility]
[2023-08-08] MEDS ORDERED: TYLENOL 325 MG PO PRN (19:29)
[2023-08-09] MEDS: SODIUM BICARBONATE PO SCH (00:21)
[2023-08-09] MEDS: ZOCOR 20MG PO SCH (00:21)
[2023-08-09] MEDS ORDERED: Sodium Chloride 0.9% 1000 ML 1,000 ML ONE (03:27)
[2023-08-09 04:57] LABS: Hematocrit 33.4 % (42-50); Hemoglobin 10.6 g/dL (12.5-18.0); Mean Cell Volume 86.5 fL (78-100); Mean Corpuscular Hemoglobin 27.5 pg (26-32); Mean Corpuscular Hgb Concent. 31.7 g/dL (32-36); Mean Platelet Volume 12.2 fL (7.5-11.0); Platelet Count 244 x10^3/uL (150-450); Red Blood Count 3.86 x10^6/uL (4.1-5.6); Red Cell Distribution Width 16.5 % (11.5-14.0); White Blood Count 9.1 x10^3/uL (4.0-10.5)
[2023-08-09 05:20] LABS: ANION GAP 11.4 MEQ/L (5-15); BILIRUBIN,TOTAL 0.2 mg/dL (0.2-1.3); Calcium 8.2 mg/dL (8.4-10.2); Creatinine 1 0.94 mg/dL (0.66-1.25); EST GLOMERULAR FILTRATION RATE 94.6 ML/MIN; Potassium 3.8 mmol/L (3.5-5.1); Total Protein 5.9 g/dL (6.3-8.2)
[2023-08-09] MEDS: Xalatan OP SCH (08:22)
[2023-08-09] MEDS: Protonix 40MG Tablet PO SCH (09:45)
[2023-08-09] MEDS: Aldactone 25 MG PO SCH (09:45)
[2023-08-09] MEDS: Lexapro PO SCH (09:46)
[2023-08-09] MEDS: ENOXAPARIN SODIUM SQ SCH (09:46)
[2023-08-09] MEDS ORDERED: NON-FORMULARY ITEM (Omeprazole [Omeprazole] 40 MG Capsule.Dr) PO SCH (10:00)
[2023-08-09] MEDS: Levofloxacin 500MG/100ML D5W 500 MG/100 ML BAG IV SCH (11:40)
--- NOTE | 2023-08-09 12:28 | PCM.NOTE ---
Date and Time: 08/09/23 1221 Subjective Assessment: is a 58 year old male with pmhx of Cerebral Palsy, seizure disorder, HTN, CAD, BPH, and gastric ulcer who presented to [facility] 08/08/23 experiencing left sided numbness. CT head negative. Neurology consulted with recommendations for MRI/MRA for further evaluation and the initiation of plavix and ASA 08/08: Met with patient bedside. Endorses that left sided numbness improving, almost at baseline. Reports he is no longer having difficulty swallowing. Normal facial symmetry. Denies fever,cough, sob, cp, abdominal pain, [place], dizziness, N/V/D. 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, normal mood/affect Skin Exam: normal color Eye Exam: PERRL Ears, Nose, Throat Exam: normal ENT inspection Neck Exam: normal inspection Respiratory Exam: normal breath sounds, lungs clear Cardiovascular Exam: regular rate/rhythm, normal heart sounds Gastrointestinal/Abdomen Exam: soft, normal bowel sounds, other (colostomy bag/urostomy) Extremity Exam: limited range of motion, other (contracture bilateral hands) Male Genitalia Exam: deferred Rectal Exam: deferred Objective Data Vital Signs: Vital Signs - 24 hr Temp Pulse Resp BP BP Pulse Ox 08/09/23 11:46 99.4 F 96 H 16 142/86 98 08/09/23 07:10 99.8 F 112 H 16 152/86 98 08/09/23 04:00 98.7 F 103 H 25 H 172/95 96 08/08/23 23:46 98.1 F 90 18 131/79 98 08/08/23 22:00 95 H 98 08/08/23 20:00 98.2 F 98 H 18 128/82 99 08/08/23 18:09 98.2 F 98 H 18 128/82 99 08/08/23 17:01 95 08/08/23 17:00 95 H 28 H 150/112 08/08/23 16:45 90 26 H 143/82 08/08/23 16:30 95 H 20 134/89 08/08/23 16:15 98 H 27 H 137/87 08/08/23 16:00 108 H 28 H 134/99 95 08/08/23 15:45 107 H 28 H 134/90 97 08/08/23 15:30 110 H 29 H 135/99 100 08/08/23 15:15 103 H 32 H 127/90 08/08/23 15:00 104 H 33 H 134/87 96 08/08/23 14:45 103 H 30 H 131/93 96 08/08/23 14:30 104 H 28 H 144/88 95 08/08/23 14:22 97 08/08/23 14:15 99 H 35 H 143/102 98 08/08/23 14:00 138/97 08/08/23 13:45 112 H 28 H 134/93 08/08/23 13:40 102.0 F 110 H 22 138/93 96 Pain Assessment - Last Documented Pain Intensity 0 Intake and Output: Intake & Output 08/07/23 08/08/23 08/09/23 08/10/23 11:59 11:59 11:59 11:59 Intake Total 1534 Output Total 750 Balance 784 Weight 54.4 kg Lab Results: Lab Results-Last 24 Hours 08/08/23 08/08/23 08/08/23 Range/Units 13:55 14:40 14:40 WBC 12.8 H (4.0-10.5) x10^3/uL RBC 4.33 (4.1-5.6) x10^6/uL Hgb 12.0 L (12.5-18.0) g/dL Hct 38.3 L (42-50) % MCV 88.5 (78-100) fL MCH 27.7 (26-32) pg MCHC 31.3 L (32-36) g/dL RDW 16.0 H (11.5-14.0) % Plt Count 260 (150-450) x10^3/uL MPV 11.9 H (7.5-11.0) fL Gran % 83.3 H (36.0-66.0) % Immature Gran % (Auto) 0.5 H (0.00-0.4) % Nucleat RBC Rel Count 0.0 (0.00-0.1) % Eos # (Auto) 0.01 (0-0.5) x10^3/uL Immature Gran # (Auto) 0.07 H (0.00-0.03) x10^3u/L Absolute Lymphs (auto) 1.01 (1.0-4.6) x10^3/uL Absolute Monos (auto) 1.03 (0.0-1.3) x10^3/uL Absolute Nucleated RBC 0.00 (0.00-0.01) x10^3u/L Lymphocytes % 7.9 L (24.0-44.0) % Monocytes % 8.0 (0.0-12.0) % Eosinophils % 0.1 (0.00-5.0) % Basophils % 0.2 (0.0-0.4) % Absolute Granulocytes 10.65 H (1.4-6.9) x10^3/uL Basophils # 0.03 (0-0.4) x10^3/uL ESR (0-15) mm/hr Sodium 137 (135-145) mmol/L Potassium 3.6 (3.5-5.1) mmol/L Chloride 107 (98-107) mmol/L Carbon Dioxide 20 L (22-30) mmol/L Anion Gap 12.7 (5-15) MEQ/L BUN 13 (9-20) mg/dL Creatinine 1.02 (0.66-1.25) mg/dL Estimated GFR 85.7 ML/MIN Glucose 93 (74-106) mg/dL Lactic Acid 1.2 (0.4-2.0) Calcium 8.8 (8.4-10.2) mg/dL Total Bilirubin 0.30 (0.2-1.3) mg/dL AST 44 (17-59) U/L ALT 33 (0-50) U/L Alkaline Phosphatase 128 H (38-126) U/L Serum Total Protein 7.4 (6.3-8.2) g/dL Albumin 3.9 (3.5-5.0) g/dL Triglycerides (30-150) mg/dL Cholesterol (50-200) mg/dL LDL Cholesterol (30-100) mg/dL HDL Cholesterol (40-60) mg/dL Heart Disease Risk Ratio TSH 3rd Generation (0.470-4.680) mIU/L Urine Color (Yellow) Urine Appearance (Clear) Urine pH (4.6-8.0) Ur Specific [place] (1.005-1.030) Urine Protein (Negative) Urine Glucose (UA) (Negative) mg/dL Urine Ketones (Negative) Urine Blood (Negative) Urine Nitrite (Negative) Urine Bilirubin (Negative) Urine Urobilinogen (0.2) mg/dL Ur Leukocyte Esterase (Negative) U Hyaline Cast (Auto) (0-2) /LPF Urine Microscopic RBC (0-5) /HPF Urine Microscopic WBC (0-5) /HPF Ur Epithelial Cells (None Seen) /HPF Urine Bacteria (None Seen) /HPF Urine Culture Reflexed (NO) Influenza Type A Ag (NEGATIVE) Influenza Type B Ag (NEGATIVE) RSV (PCR) (NEGATIVE) SARS-CoV-2 (PCR) (NEGATIVE) 08/08/23 08/08/23 08/09/23 Range/Units 14:40 15:30 04:25 WBC (4.0-10.5) x10^3/uL RBC (4.1-5.6) x10^6/uL Hgb (12.5-18.0) g/dL Hct (42-50) % MCV (78-100) fL MCH (26-32) pg MCHC (32-36) g/dL RDW (11.5-14.0) % Plt Count (150-450) x10^3/uL MPV (7.5-11.0) fL Gran % (36.0-66.0) % Immature Gran % (Auto) (0.00-0.4) % Nucleat RBC Rel Count (0.00-0.1) % Eos # (Auto) (0-0.5) x10^3/uL Immature Gran # (Auto) (0.00-0.03) x10^3u/L Absolute Lymphs (auto) (1.0-4.6) x10^3/uL Absolute Monos (auto) (0.0-1.3) x10^3/uL Absolute Nucleated RBC (0.00-0.01) x10^3u/L Lymphocytes % (24.0-44.0) % Monocytes % (0.0-12.0) % Eosinophils % (0.00-5.0) % Basophils % (0.0-0.4) % Absolute Granulocytes (1.4-6.9) x10^3/uL Basophils # (0-0.4) x10^3/uL ESR (0-15) mm/hr Sodium (135-145) mmol/L Potassium (3.5-5.1) mmol/L Chloride (98-107) mmol/L Carbon Dioxide (22-30) mmol/L Anion Gap (5-15) MEQ/L BUN (9-20) mg/dL Creatinine (0.66-1.25) mg/dL Estimated GFR ML/MIN Glucose (74-106) mg/dL Lactic Acid (0.4-2.0) Calcium (8.4-10.2) mg/dL Total Bilirubin (0.2-1.3) mg/dL AST (17-59) U/L ALT (0-50) U/L Alkaline Phosphatase (38-126) U/L Serum Total Protein (6.3-8.2) g/dL Albumin (3.5-5.0) g/dL Triglycerides 96 (30-150) mg/dL Cholesterol 157 (50-200) mg/dL LDL Cholesterol 90 (30-100) mg/dL HDL Cholesterol 42 (40-60) mg/dL Heart Disease Risk Ratio 4.0 TSH 3rd Generation (0.470-4.680) mIU/L Urine Color Yellow (Yellow) Urine Appearance Turbid A (Clear) Urine pH 7.0 (4.6-8.0) Ur Specific [place] 1.015 (1.005-1.030) Urine Protein 100 A (Negative) Urine Glucose (UA) Negative (Negative) mg/dL Urine Ketones Negative (Negative) Urine Blood Small A (Negative) Urine Nitrite Positive A (Negative) Urine Bilirubin Negative (Negative) Urine Urobilinogen 0.2 (0.2) mg/dL Ur Leukocyte Esterase Moderate A (Negative) U Hyaline Cast (Auto) 20-50 (0-2) /LPF Urine Microscopic RBC 11-20 A (0-5) /HPF Urine Microscopic WBC >100 A (0-5) /HPF Ur Epithelial Cells Rare (None Seen) /HPF Urine Bacteria Many A (None Seen) /HPF Urine Culture Reflexed ORDERED SEPARATELY (NO) Influenza Type A Ag NEGATIVE (NEGATIVE) Influenza Type B Ag NEGATIVE (NEGATIVE) RSV (PCR) NEGATIVE (NEGATIVE) SARS-CoV-2 (PCR) NEGATIVE (NEGATIVE) 08/09/23 08/09/23 08/09/23 Range/Units 04:25 04:25 04:25 WBC 9.1 (4.0-10.5) x10^3/uL RBC 3.86 L (4.1-5.6) x10^6/uL Hgb 10.6 L (12.5-18.0) g/dL Hct 33.4 L (42-50) % MCV 86.5 (78-100) fL MCH 27.5 (26-32) pg MCHC 31.7 L (32-36) g/dL RDW 16.5 H (11.5-14.0) % Plt Count 244 (150-450) x10^3/uL MPV 12.2 H (7.5-11.0) fL Gran % (36.0-66.0) % Immature Gran % (Auto) (0.00-0.4) % Nucleat RBC Rel Count (0.00-0.1) % Eos # (Auto) (0-0.5) x10^3/uL Immature Gran # (Auto) (0.00-0.03) x10^3u/L Absolute Lymphs (auto) (1.0-4.6) x10^3/uL Absolute Monos (auto) (0.0-1.3) x10^3/uL Absolute Nucleated RBC (0.00-0.01) x10^3u/L Lymphocytes % (24.0-44.0) % Monocytes % (0.0-12.0) % Eosinophils % (0.00-5.0) % Basophils % (0.0-0.4) % Absolute Granulocytes (1.4-6.9) x10^3/uL Basophils # (0-0.4) x10^3/uL ESR 62 H (0-15) mm/hr Sodium 134 L (135-145) mmol/L Potassium 3.8 (3.5-5.1) mmol/L Chloride 109 H (98-107) mmol/L Carbon Dioxide 18 L (22-30) mmol/L Anion Gap 11.4 (5-15) MEQ/L BUN 12 (9-20) mg/dL Creatinine 0.94 (0.66-1.25) mg/dL Estimated GFR 94.6 ML/MIN Glucose 115 H (74-106) mg/dL Lactic Acid (0.4-2.0) Calcium 8.2 L (8.4-10.2) mg/dL Total Bilirubin 0.20 (0.2-1.3) mg/dL AST 30 (17-59) U/L ALT 31 (0-50) U/L Alkaline Phosphatase 99 (38-126) U/L Serum Total Protein 5.9 L (6.3-8.2) g/dL Albumin 3.0 L (3.5-5.0) g/dL Triglycerides (30-150) mg/dL Cholesterol (50-200) mg/dL LDL Cholesterol (30-100) mg/dL HDL Cholesterol (40-60) mg/dL Heart Disease Risk Ratio TSH 3rd Generation (0.470-4.680) mIU/L Urine Color (Yellow) Urine Appearance (Clear) Urine pH (4.6-8.0) Ur Specific [place] (1.005-1.030) Urine Protein (Negative) Urine Glucose (UA) (Negative) mg/dL Urine Ketones (Negative) Urine Blood (Negative) Urine Nitrite (Negative) Urine Bilirubin (Negative) Urine Urobilinogen (0.2) mg/dL Ur Leukocyte Esterase (Negative) U Hyaline Cast (Auto) (0-2) /LPF Urine Microscopic RBC (0-5) /HPF Urine Microscopic WBC (0-5) /HPF Ur Epithelial Cells (None Seen) /HPF Urine Bacteria (None Seen) /HPF Urine Culture Reflexed (NO) Influenza Type A Ag (NEGATIVE) Influenza Type B Ag (NEGATIVE) RSV (PCR) (NEGATIVE) SARS-CoV-2 (PCR) (NEGATIVE) 08/09/23 Range/Units 04:25 WBC (4.0-10.5) x10^3/uL RBC (4.1-5.6) x10^6/uL Hgb (12.5-18.0) g/dL Hct (42-50) % MCV (78-100) fL MCH (26-32) pg MCHC (32-36) g/dL RDW (11.5-14.0) % Plt Count (150-450) x10^3/uL MPV (7.5-11.0) fL Gran % (36.0-66.0) % Immature Gran % (Auto) (0.00-0.4) % Nucleat RBC Rel Count (0.00-0.1) % Eos # (Auto) (0-0.5) x10^3/uL Immature Gran # (Auto) (0.00-0.03) x10^3u/L Absolute Lymphs (auto) (1.0-4.6) x10^3/uL Absolute Monos (auto) (0.0-1.3) x10^3/uL Absolute Nucleated RBC (0.00-0.01) x10^3u/L Lymphocytes % (24.0-44.0) % Monocytes % (0.0-12.0) % Eosinophils % (0.00-5.0) % Basophils % (0.0-0.4) % Absolute Granulocytes (1.4-6.9) x10^3/uL Basophils # (0-0.4) x10^3/uL ESR (0-15) mm/hr Sodium (135-145) mmol/L Potassium (3.5-5.1) mmol/L Chloride (98-107) mmol/L Carbon Dioxide (22-30) mmol/L Anion Gap (5-15) MEQ/L BUN (9-20) mg/dL Creatinine (0.66-1.25) mg/dL Estimated GFR ML/MIN Glucose (74-106) mg/dL Lactic Acid (0.4-2.0) Calcium (8.4-10.2) mg/dL Total Bilirubin (0.2-1.3) mg/dL AST (17-59) U/L ALT (0-50) U/L Alkaline Phosphatase (38-126) U/L Serum Total Protein (6.3-8.2) g/dL Albumin (3.5-5.0) g/dL Triglycerides (30-150) mg/dL Cholesterol (50-200) mg/dL LDL Cholesterol (30-100) mg/dL HDL Cholesterol (40-60) mg/dL Heart Disease Risk Ratio TSH 3rd Generation 1.425 (0.470-4.680) mIU/L Urine Color (Yellow) Urine Appearance (Clear) Urine pH (4.6-8.0) Ur Specific [place] (1.005-1.030) Urine Protein (Negative) Urine Glucose (UA) (Negative) mg/dL Urine Ketones (Negative) Urine Blood (Negative) Urine Nitrite (Negative) Urine Bilirubin (Negative) Urine Urobilinogen (0.2) mg/dL Ur Leukocyte Esterase (Negative) U Hyaline Cast (Auto) (0-2) /LPF Urine Microscopic RBC (0-5) /HPF Urine Microscopic WBC (0-5) /HPF Ur Epithelial Cells (None Seen) /HPF Urine Bacteria (None Seen) /HPF Urine Culture Reflexed (NO) Influenza Type A Ag (NEGATIVE) Influenza Type B Ag (NEGATIVE) RSV (PCR) (NEGATIVE) SARS-CoV-2 (PCR) (NEGATIVE) Radiology Exams: Radiology Procedures Category Date Time Status HEAD WITHOUT CONTRAST [CT] Stat Exams 08/08/23 13:55 Completed MRA BRAIN WITHOUT CONTRAST [MRI] Routine Exams 08/09/23 07:43 Ordered MRA NECK WITHOUT CONTRAST [MRI] Routine Exams 08/09/23 07:43 Ordered MRI BRAIN W/O CONTRAST [MRI] Routine Exams 08/09/23 07:43 Ordered Assessment/Plan (1) Numbness on left side Current Visit: Yes Status: Acute Assessment & Plan: -Neurology note reviewed, agree with plan for MRI/MRI -they will follow results once complete -Plavix/ASA initiated -CT head reviewed and negative for acute findings Code(s): R20.0 - ANESTHESIA OF SKIN (2) Seizure disorder Current Visit: Yes Status: Acute Assessment & Plan: -continue home meds Code(s): G40.909 - EPILEPSY, UNSP, NOT INTRACTABLE, WITHOUT STATUS EPILEPTICUS (3) UTI (urinary tract infection) Current Visit: Yes Status: Acute Assessment & Plan: -ucult showing gram negative organism, patient with PCN allergy, last culture with ecoli showing sensitivity to levaquin which was given in ED, patient with mild temp this morning, will continue levaquin, follow culture Code(s): N39.0 - URINARY TRACT INFECTION, SITE NOT SPECIFIED (4) BPH (benign prostatic hyperplasia) Current Visit: Yes Status: Chronic Assessment & Plan: -No treatment Patient has urostomy Code(s): N40.0 - BENIGN PROSTATIC HYPERPLASIA WITHOUT LOWER URINRY TRACT SYMP (5) CAD (coronary artery disease) Current Visit: Yes Status: Chronic Assessment & Plan: -continue home meds Code(s): I25.10 - ATHSCL HEART DISEASE OF [place] CORONARY ARTERY W/O ANG PCTRS (6) HTN (hypertension) Current Visit: No Status: Chronic Assessment & Plan: -continue home meds Code(s): I10 - ESSENTIAL (PRIMARY) HYPERTENSION
--- NOTE | 2023-08-09 13:43 | XRAY ---
Indication: Left-sided numbness. Stroke. Multi slab 3-D [id number] MRA [place] performed. Comparison: None Distal internal carotid arteries are bilaterally symmetric without critical stenosis or obstruction. Normal carotid terminus with normal branching A1 and M1 segments bilaterally. More distal anterior cerebral and middle cerebral arteries are normal in MRA appearance bilateral. Posterior circulation demonstrates normal MRA appearance to the basilar, left/right posterior cerebral, and left/right superior cerebellar arteries. Impression: Normal MRA [place].
--- NOTE | 2023-08-09 14:03 | XRAY ---
Indication: Left-sided numbness. Stroke. Sagittal, coronal, and axial MRI brain performed without contrast using T1, T2, FLAIR, diffusion, and ADC sequences. Comparison: April 11, 2023 Grossly stable age-appropriate global atrophy, moderate periventricular degenerative micro-ischemia bilaterally, and prominent lateral ventricles. No acute intracranial hemorrhage, abnormal extra-axial fluid collection, or mass effect. Diffusion images remain negative for restricted signal. Fourth ventricle is midline again with incidental cavum septum pellucidum. 7/8 cranial nerve complex bilaterally symmetric. Normal flow-void signal within the major intracerebral circulation. Normal-appearing craniocervical junction and sella turcica. Paranasal sinuses are clear. Impression: Stable MRI brain without contrast exam again demonstrating atrophy, degenerative micro-ischemia, and prominent lateral ventricles. No new/acute intracranial abnormalities or evidence for evolving large vessel territorial stroke.
--- NOTE | 2023-08-09 14:27 | XRAY ---
Indication: Left-sided numbness. Stroke. Multi-slab 3-D [id number] MRI neck performed. Comparison: None Visualized distal common carotid, carotid bulb, internal carotid, and external carotid arteries are normal in MRA appearance bilaterally. Both distal internal carotid arteries are also tortuous. Normal MRA appearance right vertebral artery. Nonvisualization left vertebral artery suggesting occlusion. Impression: Suspect occlusion left vertebral artery. Remaining MRA neck is negative for critical stenosis/obstruction.
[2023-08-10 05:19] LABS: Absolute Neutrophil Ct (ANC) 5.84 x10^3/uL (1.4-6.9); BASOPHIL % 0.2 % (0.0-0.4); Basophil (Absolute #) 0.02 x10^3/uL (0-0.4); Eosinophil % 0.8 % (0.00-5.0); Eosinophil (Absolute #) 0.07 x10^3/uL (0-0.5); Hematocrit 33.6 % (42-50); Hemoglobin 10.8 g/dL (12.5-18.0); IMMATURE GRAN # 0.04 x10^3u/L (0.00-0.03); IMMATURE GRAN % 0.5 % (0.00-0.4); Lymphocyte (Absolute #) 1.36 x10^3/uL (1.0-4.6); Lymphocytes % 15.7 % (24.0-44.0); Mean Cell Volume 85.5 fL (78-100); Mean Corpuscular Hemoglobin 27.5 pg (26-32); Mean Corpuscular Hgb Concent. 32.1 g/dL (32-36); Mean Platelet Volume 12.5 fL (7.5-11.0); Monocyte (Absolute #) 1.35 x10^3/uL (0.0-1.3); Monocytes % 15.6 % (0.0-12.0); Neutrophil % 67.2 % (36.0-66.0); Platelet Count 240 x10^3/uL (150-450); Red Blood Count 3.93 x10^6/uL (4.1-5.6); Red Cell Distribution Width 16.2 % (11.5-14.0); White Blood Count 8.7 x10^3/uL (4.0-10.5)
[2023-08-10 07:16] VITALS: O2SAT 99
[2023-08-10 08:09] LABS: ALBUMIN 3.3 g/dL (3.5-5.0); ANION GAP 10.4 MEQ/L (5-15); BILIRUBIN,TOTAL 0.3 mg/dL (0.2-1.3); Calcium 8.7 mg/dL (8.4-10.2); EST GLOMERULAR FILTRATION RATE 87.8 ML/MIN; Potassium 3.6 mmol/L (3.5-5.1); Total Protein 6.7 g/dL (6.3-8.2)
--- NOTE | 2023-08-10 10:40 | PCM.DS ---
Discharge Summary Date of Admission: 08/08/23 18:03 Date of Discharge: 08/10/23 Admitting Physician: DYLAN CARDOSO MD Consults: Consults on Case 08/08/23 15:34 Tele-Health Consult ROUTINE Primary Care Provider: MARQUES GUALLPA MD Allergies Allergies diazepam [From Valium] Allergy (Verified 04/11/23 11:26) Penicillins Allergy (Verified 04/11/23 11:26) Hospital Summary - Hospital Course Hospital Course: is a 58 year old male with pmhx of Cerebral Palsy, seizure disorder, HTN, CAD, BPH, and gastric ulcer who [facility]23 experiencing left sided numbness. CT head negative. Neurology consulted with recommendations for MRI/MRA for further evaluation and the initiation of plavix and ASA. MRI No new/acute intracranial abnormalities or evidence for evolving large vessel territorial stroke and MRA Focal mild stenosis at the proximal left ICA.Very small left vertebral artery (non dominant). Numbness has mostly resolved. UTI with EColi treated with levoquin. Advised follow up with neurology/ pcp. Patient agreeable to plan and stable for discharge. Discharge Note New Diagnosis: Left sided numbness New Medications:plavix/asa/levaquin Follow Up: pcp/neurology Latest Assessment & Plan (1) Numbness on left side Current Visit: Yes Status: Acute Assessment & Plan: -Neurology note reviewed, agree with plan for MRI/MRI -they will follow results once complete -Plavix/ASA initiated -CT head reviewed and negative for acute findings -MRI/MRA as stated above Code(s): R20.0 - ANESTHESIA OF SKIN (2) Seizure disorder Current Visit: Yes Status: Acute Assessment & Plan: -continue home meds Code(s): G40.909 - EPILEPSY, UNSP, NOT INTRACTABLE, WITHOUT STATUS EPILEPTICUS (3) UTI (urinary tract infection) Current Visit: Yes Status: Acute Assessment & Plan: -ucult showing gram negative organism, patient with PCN allergy, last culture with ecoli showing sensitivity to levaquin which was given in ED, patient with mild temp this morning, will continue levaquin, follow culture 08/09: -Ucult with ecoli, continue levaquin Code(s): N39.0 - URINARY TRACT INFECTION, SITE NOT SPECIFIED (4) BPH (benign prostatic hyperplasia) Current Visit: Yes Status: Chronic Assessment & Plan: -No treatment Patient has urostomy Code(s): N40.0 - BENIGN PROSTATIC HYPERPLASIA WITHOUT LOWER URINRY TRACT SYMP (5) CAD (coronary artery disease) Current Visit: Yes Status: Chronic Assessment & Plan: -continue home meds Code(s): 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 (6) HTN (hypertension) Current Visit: No Status: Chronic Assessment & Plan: -continue home meds I spent 35 minutes [id number] with the patient on the day of discharge performing discharge exam, discussing hospital stay and discharge instructions with patient and caregivers, preparation of discharge records, prescriptions & referral forms and addressing any questions/concerns the patient had as documented above. - Vitals & Intake/Output Vital Signs: Vital Signs Temperature 98.2 F 08/10/23 07:00 Pulse Rate 86 08/10/23 07:00 Respiratory Rate 28 H 08/10/23 07:00 Blood Pressure 108/74 08/10/23 07:00 O2 Sat by Pulse Oximetry 99 08/10/23 07:00 Intake & Output: Intake & Output 08/07/23 08/08/23 08/09/23 08/10/23 11:59 11:59 11:59 11:59 Intake Total 1534 1820 Output Total 750 2700 Balance 784 -880 Weight 54.4 kg - Lab Result Diagrams: 08/10/23 04:40 08/10/23 04:40 Lab Results-Last 24 Hrs: Lab Results-Last 24 Hours 08/10/23 08/10/23 Range/Units 04:40 04:40 WBC 8.7 (4.0-10.5) x10^3/uL RBC 3.93 L (4.1-5.6) x10^6/uL Hgb 10.8 L (12.5-18.0) g/dL Hct 33.6 L (42-50) % MCV 85.5 (78-100) fL MCH 27.5 (26-32) pg MCHC 32.1 (32-36) g/dL RDW 16.2 H (11.5-14.0) % Plt Count 240 (150-450) x10^3/uL MPV 12.5 H (7.5-11.0) fL Gran % 67.2 H (36.0-66.0) % Immature Gran % (Auto) 0.5 H (0.00-0.4) % Nucleat RBC Rel Count 0.0 (0.00-0.1) % Eos # (Auto) 0.07 (0-0.5) x10^3/uL Immature Gran # (Auto) 0.04 H (0.00-0.03) x10^3u/L Absolute Lymphs (auto) 1.36 (1.0-4.6) x10^3/uL Absolute Monos (auto) 1.35 H (0.0-1.3) x10^3/uL Absolute Nucleated RBC 0.00 (0.00-0.01) x10^3u/L Lymphocytes % 15.7 L (24.0-44.0) % Monocytes % 15.6 H (0.0-12.0) % Eosinophils % 0.8 (0.00-5.0) % Basophils % 0.2 (0.0-0.4) % Absolute Granulocytes 5.84 (1.4-6.9) x10^3/uL Basophils # 0.02 (0-0.4) x10^3/uL Sodium 136 (135-145) mmol/L Potassium 3.6 (3.5-5.1) mmol/L Chloride 107 (98-107) mmol/L Carbon Dioxide 22 (22-30) mmol/L Anion Gap 10.4 (5-15) MEQ/L BUN 14 (9-20) mg/dL Creatinine 1.00 (0.66-1.25) mg/dL Estimated GFR 87.8 ML/MIN Glucose 98 (74-106) mg/dL Calcium 8.7 (8.4-10.2) mg/dL Total Bilirubin 0.30 (0.2-1.3) mg/dL AST 33 (17-59) U/L ALT 43 (0-50) U/L Alkaline Phosphatase 118 (38-126) U/L Serum Total Protein 6.7 (6.3-8.2) g/dL Albumin 3.3 L (3.5-5.0) g/dL Micro Results-Entire Visit: Microbiology 08/08/23 15:30 Urine Culture - Preliminary Suprapubic Cath Escherichia Coli 08/08/23 14:40 Blood Culture - Preliminary Blood - Radiology Exams Ordered Rad Exams-Entire Visit: Radiology Procedures Category Date Time Status HEAD WITHOUT CONTRAST [CT] Stat Exams 08/08/23 13:55 Completed MRA BRAIN WITHOUT CONTRAST [MRI] Routine Exams 08/09/23 07:43 Completed MRA NECK WITHOUT CONTRAST [MRI] Routine Exams 08/09/23 07:43 Completed MRI BRAIN W/O CONTRAST [MRI] Routine Exams 08/09/23 07:43 Completed - Procedures and Test Procedures and Tests throughout Hospitalization: Therapy Orders & Screens 08/08/23 19:29 OT Eval and Treat ( Order) ONCE Comment: Physician Instructions: Reason For Exam: Diagnosis: Stroke, left side numbness, UTI 08/09/23 12:56 Speech Therapy Eval & Treat [ST Eval & Treat ( Order)] .as ordered Comment: Physician Instructions: Reason For Exam: Evaluate: dysphagia Treat: Yes Reason for Eval: difficulty swallowing Diagnosis: Stroke, left side numbness, UTI Discharge Exam General Appearance: no apparent distress Neurologic Exam: alert, oriented x 3, cooperative Eye Exam: PERRL Ears, Nose, Throat Exam: moist mucous membranes Neck Exam: full range of motion Respiratory Exam: normal breath sounds, lungs clear Cardiovascular Exam: regular rate/rhythm, normal heart sounds Gastrointestinal/Abdomen Exam: soft, normal bowel sounds, other (colostom y/urostomy) Male Genitalia Exam: deferred Rectal Exam: deferred Back Exam: normal inspection Extremity Exam: other (contractures bilateral hands) Final Diagnosis/Problem List - Final Discharge Diagnosis/Problem (1) Numbness on left side Current Visit: Yes Status: Resolved Code(s): R20.0 - ANESTHESIA OF SKIN (2) Seizure disorder Current Visit: Yes Status: Chronic Code(s): G40.909 - EPILEPSY, UNSP, NOT INTRACTABLE, WITHOUT STATUS EPILEPTICUS (3) UTI (urinary tract infection) Current Visit: Yes Status: Acute Code(s): N39.0 - URINARY TRACT INFECTION, SITE NOT SPECIFIED (4) BPH (benign prostatic hyperplasia) Current Visit: Yes Status: Chronic Code(s): N40.0 - BENIGN PROSTATIC HYPERPLASIA WITHOUT LOWER URINRY TRACT SYMP (5) CAD (coronary artery disease) Current Visit: Yes Status: Chronic Code(s): 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 (6) HTN (hypertension) Current Visit: No Status: Chronic Code(s): I10 - ESSENTIAL (PRIMARY) HYPERTENSION - Discharge Disposition: Home, Self-Care Condition: Stable Prescriptions: New Aspirin EC 81 mg [Ecotrin 81 mg] 81 mg PO DAILY 30 Days #30 tablet levoFLOXacin [Levofloxacin] 500 mg PO DAILY 7 Days #7 tablet Clopidogrel Bisulfate [Plavix] 75 mg PO DAILY 21 Days #21 tablet Continue Spironolactone 25 mg PO DAILY Omeprazole 40 mg PO DAILY Escitalopram Oxalate [Lexapro] 10 mg PO DAILY Latanoprost [Xalatan] 1 drop OP HS Sodium Bicarbonate 650 mg PO BID 3 Days #3 tablet Instructions: Stroke, Urinary Tract Infection, Adult (DC) Additional Instructions: Referral was made for neurology with [facility] in [place]. Their office will call you with an appointment. Follow up with: MARQUES GUALLPA MD [Primary Care Provider] - 08/17/23 2:05 pm Forms: Discharge Instructions
[2023-08-10 11:19] VITALS: BP 129/84; PULSE 89; RESP 16; TEMP 97
== END 2023-08-10 11:50 | disposition home or self-care (01) ==
LOC: ED 13:35 → MED SURG 18:03
PROVIDERS: ADMIT Internal Medicine; ATTEND Internal Medicine
DX: R20.0 Anesthesia of skin (principal); G40.909 Epilepsy, unspecified, not intractable, without status epilepticus; N39.0 Urinary tract infection, site not specified; N40.0 Benign prostatic hyperplasia without lower urinary tract symptoms; I25.10 Atherosclerotic heart disease of native coronary artery without angina pectoris; I10 Essential (primary) hypertension; I25.2 Old myocardial infarction; G80.9 Cerebral palsy, unspecified; Z79.899 Other long term (current) drug therapy; Z59.82 Transportation insecurity
CPT/HCPCS: 0241U; 36000; 36415; 70450; 70544; 70547; 70551; 80053; 80061; 81001; 83605; 83721; 84443; 85025; 85027; 85652; 87040; 87077; 87086; 87186; 92610; 93005; 93041; 93268; 94760; 97165; 99284; G0378; Q3014; J1650; J1956; A9270-GY

== ENCOUNTER 2023-08-14 12:53 | Emergency (ER) | payer MEDICARE ==
[2023-08-14 13:39] VITALS: TEMP 97.6
[2023-08-14 13:53] LABS: Absolute Neutrophil Ct (ANC) 2.99 x10^3/uL (1.4-6.9); BASOPHIL % 0.7 % (0.0-0.4); Basophil (Absolute #) 0.05 x10^3/uL (0-0.4); Eosinophil % 4.4 % (0.00-5.0); Eosinophil (Absolute #) 0.32 x10^3/uL (0-0.5); Hematocrit 39.1 % (42-50); IMMATURE GRAN # 0.06 x10^3u/L (0.00-0.03); IMMATURE GRAN % 0.8 % (0.00-0.4); Lymphocyte (Absolute #) 3.24 x10^3/uL (1.0-4.6); Mean Cell Volume 89.3 fL (78-100); Mean Corpuscular Hemoglobin 27.4 pg (26-32); Mean Corpuscular Hgb Concent. 30.7 g/dL (32-36); Mean Platelet Volume 11.3 fL (7.5-11.0); Monocyte (Absolute #) 0.54 x10^3/uL (0.0-1.3); Monocytes % 7.5 % (0.0-12.0); Neutrophil % 41.6 % (36.0-66.0); Platelet Count 434 x10^3/uL (150-450); Red Blood Count 4.38 x10^6/uL (4.1-5.6); Red Cell Distribution Width 16.2 % (11.5-14.0); White Blood Count 7.2 x10^3/uL (4.0-10.5)
[2023-08-14 14:07] LABS: ALBUMIN 3.9 g/dL (3.5-5.0); ANION GAP 14.4 MEQ/L (5-15); BILIRUBIN,TOTAL 0.3 mg/dL (0.2-1.3); Calcium 9.4 mg/dL (8.4-10.2); Creatinine 1 0.94 mg/dL (0.66-1.25); EST GLOMERULAR FILTRATION RATE 94.6 ML/MIN; Potassium 4.2 mmol/L (3.5-5.1); Total Protein 7.6 g/dL (6.3-8.2)
[2023-08-14 14:08] LABS: INR 1.15 (0.8-3.0); PROTIME 12.4 SECONDS (9.4-12.5); PTT 25.9 SECONDS (25.1-36.5)
[2023-08-14 15:24] VITALS: BP 147/88; PULSE 72; RESP 19; O2SAT 96
--- NOTE | 2023-08-14 15:33 | ERPHSYRPT ---
- History of Present Illness Time Seen by Provider: 08/14/23 13:40 Source: patient Exam Limitations: no limitations Patient Subjective Stated Complaint: Wound check-bleeding from urinary stoma Triage Nursing Assessment: Patient brought into ED per w/c and transferred to bed with assist of 1. Patient A+O X3. Patient's skin pink, warm and dry. Francesca ent's caregiver stated during changing his urinary bag she noticed a small amount of blood around the stoma. Patient denies pain or discomfort. Patient currently on Atb for UTI. Urine drainage bag noted to be clear. Physician History: Patient is a 58-year-old white male who has a urostomy and colostomy presents with some slight bleeding around the colonoscopy. He was admitted last week and was discharged home on Plavix as a blood thinner and subsequently has had blee ding.On arrival there is no active bleeding. Timing/Duration: today Severity: mild Allergies/Adverse Reactions: diazepam [From Valium] Allergy (Verified 08/14/23 13:33) Penicillins Allergy (Verified 08/14/23 13:33) Home Medications: Omeprazole 40 mg PO DAILY 01/17/20 [History] Escitalopram Oxalate [Lexapro] 5 mg PO DAILY 04/11/23 [History] Latanoprost [Xalatan] 1 drop OP HS 04/11/23 [History] Clopidogrel Bisulfate [Plavix] 1 tab PO DAILY 08/14/23 [History] Hx Tetanus, Diphtheria Vaccination/Date Given: Yes Hx Influenza Vaccination/Date Given: No Hx Pneumococcal Vaccination/Date Given: No Immunizations Up to Date: Yes Travel Risk - International Travel Have you traveled outside of the country in past 3 weeks: No - Emerging Infectious Disease Are you exhibiting symptoms associated with any current EIDs: No - Review of Systems Constitutional: No Fever, No Chills Eyes: No Symptoms Ears, Nose, & Throat: No Symptoms Respiratory: No Cough, No Dyspnea Cardiac: No Chest Pain, No Edema, No Syncope Abdominal/Gastrointestinal: No Abdominal Pain, No Nausea, No Vomiting, No Diarrhea Genitourinary Symptoms: No Dysuria Musculoskeletal: No Back Pain, No Neck Pain Skin: No Rash Neurological: No Dizziness, No Focal Weakness, No Sensory Changes Psychological: No Symptoms Endocrine: No Symptoms All Other Systems: Reviewed and Negative - Past Medical History Pertinent Past Medical History: Yes Neurological History: Migraines, Seizures ENT History: Glaucoma Cardiac History: Arrhythmia, Myocardial Infarction ([place]) Respiratory History: Pneumonia Endocrine Medical History: No Pertinent History Musculoskeletal History: Arthritis GI Medical History: Esophageal Disorder, GERD, Ulcer History: Other Psycho-Social History: Anxiety, Depression, Panic Disorder Male Reproductive Disorders: Prostate Problems Other Medical History: cerabral palsy, kidney failure, 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 (50 corrective surgeries) - Social History Smoking Status: Never smoker Exposure to second hand smoke: No Drug Use: none Patient Lives Alone: Yes - Nursing Vital Signs Nursing Vital Signs: Initial Vital Signs Temperature 97.6 F 08/14/23 13:35 Pulse Rate 71 08/14/23 13:35 Respiratory Rate 18 08/14/23 13:35 Blood Pressure 135/95 08/14/23 13:35 O2 Sat by Pulse Oximetry 98 08/14/23 13:35 Pain Scale Pain Intensity 0 - Physical Exam General Appearance: no apparent distress, alert Eye Exam: PERRL/EOMI, eyes nml inspection Ears, Nose, Throat Exam: normal ENT inspection, TMs normal, pharynx normal, moist mucous membranes Neck Exam: normal inspection, non-tender, supple, full range of motion Respiratory Exam: normal breath sounds, lungs clear, No respiratory distress Cardiovascular Exam: regular rate/rhythm, normal heart sounds, normal peripheral pulses Gastrointestinal/Abdomen Exam: soft, normal bowel sounds, other (Colostomy and urostomyBoth are inspected and there is no active bleeding at present.), No tenderness, No mass Back Exam: normal inspection, normal range of motion, No CVA tenderness, No vertebral tenderness Extremity Exam: normal inspection, normal range of motion, pelvis stable Neurologic Exam: alert, oriented x 3, cooperative, normal mood/affect, nml cerebellar function, nml station & gait, sensation nml, No motor deficits Skin Exam: normal color, warm, dry, No rash Lymphatic Exam: No adenopathy SpO2 Interpretation: normal SpO2: 96 O2 Delivery: Room Air - Course Nursing assessment & vital signs reviewed: Yes Ordered Tests: Active Orders 24 hr Category Date Time Status ACO SDOH Referral ONCE Cons 08/14/23 13:39 Active CBC W DIFF Stat Lab 08/14/23 13:40 Completed CMP Stat Lab 08/14/23 13:40 Completed PROTIME WITH INR Stat Lab 08/14/23 13:40 Completed PTT Stat Lab 08/14/23 13:40 Completed Lab/Rad Data: Laboratory Result Diagrams 08/14/23 13:40 08/14/23 13:40 Laboratory Results 08/14/23 08/14/23 08/14/23 Range/Units 13:40 13:40 13:40 WBC 7.2 (4.0-10.5) x10^3/uL RBC 4.38 (4.1-5.6) x10^6/uL Hgb 12.0 L (12.5-18.0) g/dL Hct 39.1 L (42-50) % MCV 89.3 (78-100) fL MCH 27.4 (26-32) pg MCHC 30.7 L (32-36) g/dL RDW 16.2 H (11.5-14.0) % Plt Count 434 (150-450) x10^3/uL MPV 11.3 H (7.5-11.0) fL Gran % 41.6 (36.0-66.0) % Immature Gran % (Auto) 0.8 H (0.00-0.4) % Nucleat RBC Rel Count 0.0 (0.00-0.1) % Eos # (Auto) 0.32 (0-0.5) x10^3/uL Immature Gran # (Auto) 0.06 H (0.00-0.03) x10^3u/L Absolute Lymphs (auto) 3.24 (1.0-4.6) x10^3/uL Absolute Monos (auto) 0.54 (0.0-1.3) x10^3/uL Absolute Nucleated RBC 0.00 (0.00-0.01) x10^3u/L Lymphocytes % 45.0 H (24.0-44.0) % Monocytes % 7.5 (0.0-12.0) % Eosinophils % 4.4 (0.00-5.0) % Basophils % 0.7 (0.0-0.4) % Absolute Granulocytes 2.99 (1.4-6.9) x10^3/uL Basophils # 0.05 (0-0.4) x10^3/uL PT 12.4 (9.4-12.5) SECONDS INR 1.15 (0.8-3.0) APTT 25.9 (25.1-36.5) SECONDS Sodium 142 (135-145) mmol/L Potassium 4.2 (3.5-5.1) mmol/L Chloride 111 H (98-107) mmol/L Carbon Dioxide 21 L (22-30) mmol/L Anion Gap 14.4 (5-15) MEQ/L BUN 19 (9-20) mg/dL Creatinine 0.94 (0.66-1.25) mg/dL Estimated GFR 94.6 ML/MIN Glucose 95 (74-106) mg/dL Calcium 9.4 (8.4-10.2) mg/dL Total Bilirubin 0.30 (0.2-1.3) mg/dL AST 16 L (17-59) U/L ALT 23 (0-50) U/L Alkaline Phosphatase 98 (38-126) U/L Serum Total Protein 7.6 (6.3-8.2) g/dL Albumin 3.9 (3.5-5.0) g/dL - Progress Progress: improved Progress Note: 08/14/23 15:32 Patient will stop Plavix and restart 1 single baby aspirin per day. Medical Desision Making - Independent Historian Additional History obtained from: Tax Form Preparer - Diagnostic Testing Diagnostic test were ordered, analyzed, and reviewed by me: Yes - Risk of complications Low Risk: Low risk of morbidity from additional dx testing or treatment - Departure Departure Disposition: Home Clinical Impression: Bleeding from colostomy Condition: Critical Care Time: No Referrals: MARQUES GUALLPA MD [Primary Care Provider] - Follow up/PCP as directed Instructions: Wound Care (DC)
[2023-08-14] MEDS ORDERED: BACIGUENT PACKET ONE (15:47)
[2023-08-14] MEDS: BACIGUENT PACKET TP ONE (15:59)
== END 2023-08-14 16:00 | disposition home or self-care (01) ==
LOC: ED 12:53
DX: K94.01 Colostomy hemorrhage (principal); Z79.02 Long term (current) use of antithrombotics/antiplatelets; Z79.899 Other long term (current) drug therapy
CPT/HCPCS: 36415; 80053; 85025; 85610; 85730; 99282; A9270-GY

== ENCOUNTER 2023-08-31 13:35 | Observation (INO) | payer MEDICARE ==
[2023-08-31 15:02] LABS: Absolute Neutrophil Ct (ANC) 5.44 x10^3/uL (1.4-6.9); BASOPHIL % 0.5 % (0.0-0.4); Basophil (Absolute #) 0.04 x10^3/uL (0-0.4); Eosinophil % 4.5 % (0.00-5.0); Eosinophil (Absolute #) 0.37 x10^3/uL (0-0.5); Hemoglobin 12.3 g/dL (12.5-18.0); IMMATURE GRAN # 0.03 x10^3u/L (0.00-0.03); IMMATURE GRAN % 0.4 % (0.00-0.4); Lymphocyte (Absolute #) 1.61 x10^3/uL (1.0-4.6); Lymphocytes % 19.6 % (24.0-44.0); Mean Cell Volume 88.5 fL (78-100); Mean Corpuscular Hemoglobin 27.2 pg (26-32); Mean Corpuscular Hgb Concent. 30.8 g/dL (32-36); Mean Platelet Volume 12.9 fL (7.5-11.0); Monocyte (Absolute #) 0.73 x10^3/uL (0.0-1.3); Monocytes % 8.9 % (0.0-12.0); Neutrophil % 66.1 % (36.0-66.0); Platelet Count 259 x10^3/uL (150-450); Red Blood Count 4.52 x10^6/uL (4.1-5.6); Red Cell Distribution Width 16.7 % (11.5-14.0); White Blood Count 8.2 x10^3/uL (4.0-10.5)
[2023-08-31 15:18] LABS: ALBUMIN 4.2 g/dL (3.5-5.0); ANION GAP 11.1 MEQ/L (5-15); BILIRUBIN,TOTAL 0.2 mg/dL (0.2-1.3); Creatinine 1 1.11 mg/dL (0.66-1.25); EST GLOMERULAR FILTRATION RATE 77.5 ML/MIN; Potassium 3.8 mmol/L (3.5-5.1); Total Protein 7.6 g/dL (6.3-8.2)
[2023-08-31 15:43] LABS: Appearance Cloudy (Clear); Bacteria Many /HPF (None Seen); Bilirubin Negative (Negative); Blood Negative (Negative); Epithelial Cells Rare /HPF (None Seen); Glucose, Urine Negative (Negative); Hyaline Casts NONE SEEN /LPF (0-2); Ketones Trace (Negative); Leukocyte Esterase Small (Negative); Nitrite Positive (Negative); Protein,Urine Dip 30 (Negative); Urobilinogen 0.2 mg/dL (0.2); WBC 21-50 /HPF (0-5)
[2023-08-31 15:52] LABS: ADD URINE CULTURE? YES (NO)
[2023-08-31 15:54] LABS: Calcium 8.9 mg/dL (8.4-10.2)
--- NOTE | 2023-08-31 16:13 | XRAY ---
Indication: Abdomen and back pain. Multiple contiguous axial images obtained through the abdomen and pelvis without contrast. Comparison: January 17, 2020 Lung bases again clear. Heart not enlarged. Noncontrasted stomach and bowel loops appear nonobstructed with normal appendix. Again mild diffuse colonic fecal debris. Left mid to lower abdominal wall demonstrates new colostomy and urostomy. Interval total cystectomy. Stable nonobstructing left renal punctate calculus. Rectal stump unremarkable. No free fluid/air. Remaining liver, gallbladder, pancreas, spleen, adrenal glands, kidneys, ureters, and aorta are unremarkable for noncontrast exam. Osseous structures intact again with bilateral L5 spondylolysis without listhesis. Impression: 1. Interval total cystectomy with new left abdominal colostomy and urostomy. No complications. 2. Again mild diffuse fecal stasis, nonobstructing left renal punctate calculus, and L5 spondylolysis w/o listhesis.
--- NOTE | 2023-08-31 16:15 | XRAY ---
Indication: Back pain. Sagittal, coronal, and axial reformatted images lumbar spine obtained using raw data from same day CT abdomen/pelvis exam. Comparison: January 17, 2020 Axial images again negative for acute fracture, suspicious bony lesions, or spinal canal stenosis. Stable mild broad-based L5-S1 disc bulge and bilateral L5 spondylolysis without listhesis. Sagittal and coronal reformatted images again demonstrates normal lumbar alignment. Vertebral body heights/disc spaces maintained. CT abdomen/pelvis reported separately. Impression: Stable L5-S1 degenerative disc disease and L5 spondylolysis without listhesis. No new/acute abnormalities.
--- NOTE | 2023-08-31 18:08 | ERPHSYRPT ---
- History of Present Illness Time Seen by Provider: 08/31/23 14:09 Source: patient, other (Caregiver) Exam Limitations: no limitations Patient Subjective Stated Complaint: generalized weakness, legs are fused but they are not working today Triage Nursing Assessment: Pt was brought to the ER by EMS, vitals wnl, denies pain, has a supra pubic bejarano placed and the tubing and bag appear to have mold throughout it, pulses normal, skin n/w/d, legs too weak to walk, uses a cane, doesn't appear to be in any distress Physician History: 58-year-old male with history of cerebral palsy with multiple surgeries done including low back fusion with hip surgeries, difficulty ambulation at baseline, usually able to move around with a cane is brought in the ER by caregiver after patient is having chills since yesterday with increasing weakness in the legs and prior to arrival he tried to walk and his both legs were not bearing any weight and was about to fall. Patient reports his right leg chronically weaker than the left. Weakness is more with ambulation. Also reports generalized abdominal pain without distention. Caregiver reports patient having similar symptoms in the past with UTI. Patient has urostomy and colostomy. Allergies/Adverse Reactions: diazepam [From Valium] Allergy (Verified 08/31/23 13:49) Penicillins Allergy (Verified 08/31/23 13:49) Home Medications: Omeprazole 40 mg PO DAILY 01/17/20 [History] Escitalopram Oxalate [Lexapro] 10 mg PO DAILY 04/11/23 [History] Spironolactone 25 mg [Aldactone 25 MG] 25 mg PO DAILY 08/31/23 [History] Hx Tetanus, Diphtheria Vaccination/Date Given: Yes Hx Influenza Vaccination/Date Given: No Hx Pneumococcal Vaccination/Date Given: No Travel Risk - International Travel Have you traveled outside of the country in past 3 weeks: No - Emerging Infectious Disease Are you exhibiting symptoms associated with any current EIDs: No - Review of Systems Constitutional: Chills, Fatigue, Weakness Eyes: No Symptoms Ears, Nose, & Throat: No Symptoms Respiratory: No Symptoms Cardiac: No Symptoms Abdominal/Gastrointestinal: Abdominal Pain Musculoskeletal: Back Pain Skin: Skin Lesions Neurological: No Symptoms Endocrine: No Symptoms Hematologic/Lymphatic: No Symptoms - Past Medical History Pertinent Past Medical History: Yes Neurological History: Migraines, Seizures ENT History: Glaucoma Cardiac History: Arrhythmia, Myocardial Infarction ([place]) Respiratory History: Pneumonia Endocrine Medical History: No Pertinent History Musculoskeletal History: Arthritis GI Medical History: Esophageal Disorder, GERD, Ulcer History: Other Psycho-Social History: Anxiety, Depression, Panic Disorder Male Reproductive Disorders: Prostate Problems Other Medical History: cerabral palsy, kidney failure, cancer polyps in bowels - Past Surgical History Past Surgical History: Yes Neuro Surgical History: No Pertinent History Cardiac: No Pertinent History Respiratory: No Pertinent History Gastrointestinal: Other Genitourinary: Other Musculoskeletal: Orthopedic Surgery Male Surgical History: No Pertinent History Other Surgical History: colostomy, urostomy, right arm surgery, right leg s urgery. (50 corrective surgeries) - Social History Smoking Status: Never smoker Exposure to second hand smoke: No Drug Use: none Patient Lives Alone: Yes - Nursing Vital Signs Nursing Vital Signs: Initial Vital Signs Temperature 98.7 F 08/31/23 13:38 Pulse Rate 75 08/31/23 13:38 Respiratory Rate 12 08/31/23 13:38 Blood Pressure 116/83 08/31/23 13:38 O2 Sat by Pulse Oximetry 97 08/31/23 13:38 Pain Scale Pain Intensity 0 - Physical Exam General Appearance: no apparent distress, alert Eye Exam: PERRL/EOMI Ears, Nose, Throat Exam: normal ENT inspection Neck Exam: normal inspection, non-tender, supple, full range of motion Respiratory Exam: normal breath sounds, lungs clear Cardiovascular Exam: regular rate/rhythm, normal heart sounds Gastrointestinal/Abdomen Exam: soft, normal bowel sounds, tenderness (Mild generalized), other (Suprapubic catheter and colostomy well in place) Rectal Exam: other (Pressure ulcer on the buttocks grade 2) Back Exam: vertebral tenderness, decreased range of motion, muscle spasm Extremity Exam: limited range of motion, No tenderness Neurologic Exam: alert, oriented x 3, cooperative, sensation nml, No nml station & gait Skin Exam: normal color SpO2 Interpretation: normal SpO2: 97 O2 Delivery: Room Air Ordered Tests: Active Orders 24 hr Category Date Time Status Bedrest ROUTINE Activity 08/31/23 20:53 Active Up With Assistance ROUTINE Activity 08/31/23 20:53 Active Call Admit Doctor for Orders ON ADMISSION Care 08/31/23 20:53 Active Code Status Order ROUTINE Care 08/31/23 20:53 Active Fall Protocol Q1H Care 08/31/23 20:53 Active IV Insertion STAT Care 08/31/23 14:35 Completed NPO (ED) STAT Care 08/31/23 14:[address] in Observation ROUTINE Care 08/31/23 20:53 Active ABDOMEN AND PELVIS W/0 CONTRAS [CT] Stat Exams 08/31/23 14:36 Completed RECONSTRUCTION [CT] Stat Exams 08/31/23 14:36 Completed BLOOD CULTURE Stat Lab 08/31/23 14:58 Received CBC W DIFF Stat Lab 08/31/23 14:50 Completed CMP Stat Lab 08/31/23 14:50 Completed CULTURE,URINE Stat Lab 08/31/23 15:26 Received Lactic Acid Stat Lab 08/31/23 14:35 Completed PROCALCITONIN Stat Lab 08/31/23 14:50 Completed UA W/RFX UR CULTURE Stat Lab 08/31/23 15:26 Completed Transfer Order Routine Transfer 08/31/23 Completed Medication Summary Generic Name Dose Route Start Last Admin Trade Name Freq PRN Reason Stop Dose Admin Acetaminophen 650 mg 08/31/23 21:59 Acetaminophen 325 Mg Tablet PO 09/30/23 21:58 Q6H PRN PRN PAIN AND/OR FEVER Aspirin 81 mg 09/01/23 10:00 Aspirin 81 Mg Tablet.Ec PO 10/01/23 09:59 DAILY MONA Escitalopram Oxalate 10 mg 09/01/23 10:00 Escitalopram Oxalate 10 Mg Tablet PO 10/01/23 09:59 DAILY MONA Heparin Sodium (Beef Lung) 5,000 unit 08/31/23 22:00 Heparin 5000 Units/0.5 Ml 5,000 Unit/0.5 Ml Syr SQ 09/30/23 21:59 Q8HT MONA Sodium Chloride 1,000 mls @ 50 mls/hr 08/31/23 22:00 Sodium Chloride 0.9% 1000 Ml IV 09/30/23 21:59 .Q20H MONA Levofloxacin/Dextrose 500 mg in 100 mls @ 100 mls/hr 09/01/23 10:00 Levofloxacin 500mg/100ml D5w IV 10/01/23 09:59 Q24H10 MONA Non-Formulary Medication 40 mg 09/01/23 10:00 Omeprazole [Omeprazole] PO 10/01/23 09:59 DAILY [facility] Spironolactone 25 mg 09/01/23 10:00 Spironolactone 25 Mg Tablet PO 10/01/23 09:59 DAILY MONA Discontinued Medications Generic Name Dose Route Start Last Admin Trade Name Jonathan PRN Reason Stop Dose Admin Levofloxacin/Dextrose 500 mg in 100 mls @ 100 mls/hr 08/31/23 18:08 08/31/23 19:37 Levofloxacin 500mg/100ml D5w IV 08/31/23 19:07 Infused STAT STA Infusion Sodium Chloride 500 mls @ 500 mls/hr 08/31/23 18:32 08/31/23 19:36 Sodium Chloride 0.9% 500 Ml IV 08/31/23 19:31 Infused .Q1H ONE Infusion Levofloxacin/Dextrose Confirm 08/31/23 18:33 Levofloxacin 500mg/100ml D5w Administered 08/31/23 18:34 Dose 500 mg in 100 mls @ ud IV .STK-MED ONE Sodium Chloride Confirm 08/31/23 18:33 Sodium Chloride 0.9% 500 Ml Administered 08/31/23 18:34 Dose 500 mls @ ud IV .STK-MED ONE Levofloxacin 500 mg 08/31/23 17:02 08/31/23 18:12 Levofloxacin 500 Mg Tablet PO 08/31/23 17:03 Not Given STAT ONE Lab/Rad Data: Laboratory Result Diagrams 08/31/23 14:50 08/31/23 14:50 Laboratory Results 08/31/23 08/31/23 08/31/23 Range/Units 15:26 14:50 14:50 WBC (4.0-10.5) x10^3/uL RBC (4.1-5.6) x10^6/uL Hgb (12.5-18.0) g/dL Hct (42-50) % MCV (78-100) fL MCH (26-32) pg MCHC (32-36) g/dL RDW (11.5-14.0) % Plt Count (150-450) x10^3/uL MPV (7.5-11.0) fL Gran % (36.0-66.0) % Immature Gran % (Auto) (0.00-0.4) % Nucleat RBC Rel Count (0.00-0.1) % Eos # (Auto) (0-0.5) x10^3/uL Immature Gran # (Auto) (0.00-0.03) x10^3u/L Absolute Lymphs (auto) (1.0-4.6) x10^3/uL Absolute Monos (auto) (0.0-1.3) x10^3/uL Absolute Nucleated RBC (0.00-0.01) x10^3u/L Lymphocytes % (24.0-44.0) % Monocytes % (0.0-12.0) % Eosinophils % (0.00-5.0) % Basophils % (0.0-0.4) % Absolute Granulocytes (1.4-6.9) x10^3/uL Basophils # (0-0.4) x10^3/uL Sodium 141 (135-145) mmol/L Potassium 3.8 (3.5-5.1) mmol/L Chloride 112 H (98-107) mmol/L Carbon Dioxide 22 (22-30) mmol/L Anion Gap 11.1 (5-15) MEQ/L BUN 20 (9-20) mg/dL Creatinine 1.11 (0.66-1.25) mg/dL Estimated GFR 77.5 ML/MIN Glucose 94 (74-106) mg/dL Lactic Acid (0.4-2.0) Calcium 8.9 (8.4-10.2) mg/dL Total Bilirubin 0.20 (0.2-1.3) mg/dL AST 21 (17-59) U/L ALT 23 (0-50) U/L Alkaline Phosphatase 101 (38-126) U/L Serum Total Protein 7.6 (6.3-8.2) g/dL Albumin 4.2 (3.5-5.0) g/dL Procalcitonin 0.079 (0.030-0.080) ng/mL Urine Color Yellow (Yellow) Urine Appearance Cloudy A (Clear) Urine pH 8.0 (4.6-8.0) Ur Specific [place] 1.020 (1.005-1.030) Urine Protein 30 (Negative) Urine Glucose (UA) Negative (Negative) mg/dL Urine Ketones Trace A (Negative) Urine Blood Negative (Negative) Urine Nitrite Positive A (Negative) Urine Bilirubin Negative (Negative) Urine Urobilinogen 0.2 (0.2) mg/dL Ur Leukocyte Esterase Small A (Negative) U Hyaline Cast (Auto) NONE SEEN (0-2) /LPF Urine Microscopic RBC 3-5 (0-5) /HPF Urine Microscopic WBC 21-50 A (0-5) /HPF Ur Epithelial Cells Rare (None Seen) /HPF Urine Bacteria Many A (None Seen) /HPF Urine Culture Reflexed YES (NO) 08/31/23 08/31/23 Range/Units 14:50 14:35 WBC 8.2 (4.0-10.5) x10^3/uL RBC 4.52 (4.1-5.6) x10^6/uL Hgb 12.3 L (12.5-18.0) g/dL Hct 40.0 L (42-50) % MCV 88.5 (78-100) fL MCH 27.2 (26-32) pg MCHC 30.8 L (32-36) g/dL RDW 16.7 H (11.5-14.0) % Plt Count 259 (150-450) x10^3/uL MPV 12.9 H (7.5-11.0) fL Gran % 66.1 H (36.0-66.0) % Immature Gran % (Auto) 0.4 (0.00-0.4) % Nucleat RBC Rel Count 0.0 (0.00-0.1) % Eos # (Auto) 0.37 (0-0.5) x10^3/uL Immature Gran # (Auto) 0.03 (0.00-0.03) x10^3u/L Absolute Lymphs (auto) 1.61 (1.0-4.6) x10^3/uL Absolute Monos (auto) 0.73 (0.0-1.3) x10^3/uL Absolute Nucleated RBC 0.00 (0.00-0.01) x10^3u/L Lymphocytes % 19.6 L (24.0-44.0) % Monocytes % 8.9 (0.0-12.0) % Eosinophils % 4.5 (0.00-5.0) % Basophils % 0.5 (0.0-0.4) % Absolute Granulocytes 5.44 (1.4-6.9) x10^3/uL Basophils # 0.04 (0-0.4) x10^3/uL Sodium (135-145) mmol/L Potassium (3.5-5.1) mmol/L Chloride (98-107) mmol/L Carbon Dioxide (22-30) mmol/L Anion Gap (5-15) MEQ/L BUN (9-20) mg/dL Creatinine (0.66-1.25) mg/dL Estimated GFR ML/MIN Glucose (74-106) mg/dL Lactic Acid 1.3 (0.4-2.0) Calcium (8.4-10.2) mg/dL Total Bilirubin (0.2-1.3) mg/dL AST (17-59) U/L ALT (0-50) U/L Alkaline Phosphatase (38-126) U/L Serum Total Protein (6.3-8.2) g/dL Albumin (3.5-5.0) g/dL Procalcitonin (0.030-0.080) ng/mL Urine Color (Yellow) Urine Appearance (Clear) Urine pH (4.6-8.0) Ur Specific [place] (1.005-1.030) Urine Protein (Negative) Urine Glucose (UA) (Negative) mg/dL Urine Ketones (Negative) Urine Blood (Negative) Urine Nitrite (Negative) Urine Bilirubin (Negative) Urine Urobilinogen (0.2) mg/dL Ur Leukocyte Esterase (Negative) U Hyaline Cast (Auto) (0-2) /LPF Urine Microscopic RBC (0-5) /HPF Urine Microscopic WBC (0-5) /HPF Ur Epithelial Cells (None Seen) /HPF Urine Bacteria (None Seen) /HPF Urine Culture Reflexed (NO) - Progress Progress: improved, pain not gone completely Progress Note: 08/31/23 18:08 58-year-old with history of cerebral palsy, low back and left lower extremity fusion at the level of hip, urostomy with suprapubic catheter and permanent colostomy, baseline difficulty ambulation is evaluated for increasing weakness generalized but more in the lower extremities along with chills. Patient not in any distress. Afebrile. Workup showed normal white count, fairly unremarkable chemistries but does have UTI. Obtained CT abdomen pelvis without contrast which showed moderate fecal stool load but no other acute findings. CT lumbar spine showed some degenerative changes but no acute findings. Patient does have UTI and given a dose of antibiotic. He wants to go home which we have made him walk but could not ambulate. Patient lives alone. I believe patient would benefit with observation admission, fluids, symptomatic treatment and PT OT. Discussed with Dr. Oliveira, reviewed history, workup and agreed with admission. Plan discussed with patient who understand and agrees. Discussed with .: Dionicio Counseled pt/family regarding: lab results, diagnosis, rad results Medical Desision Making - Independent Historian Additional History obtained from: Shuttleless Loom Weaver - Discussion of managment Care discussed with:: hospitalist Reviewed:: Test results Agreed on:: Treatment plan, place in obs Will see patient: in hospital - Diagnostic Testing Diagnostic test were ordered, analyzed, and reviewed by me: Yes Radiological Interpretation: Reviewed by me - Risk of complications The pt has a high risk of morbidity or mortality based on: Decision regarding hospitilization or escalation of hosp level of care - Departure Departure Disposition: Observation Clinical Impression: Complicated UTI (urinary tract infection), Generalized weakness Condition: Stable Critical Care Time: No
[2023-08-31] MEDS: Levofloxacin 500 MG Tablet PO ONE (18:12)
[2023-08-31] MEDS ORDERED: Levofloxacin 500MG/100ML D5W 500 MG/100 ML BAG IV ONE (18:33)
[2023-08-31] MEDS ORDERED: Sodium Chloride 0.9% 500 ML 500 ML IV ONE (18:33)
[2023-08-31] MEDS: Sodium Chloride 0.9% 500 ML 500 ML IV ONE (18:36)
[2023-08-31] MEDS: Levofloxacin 500MG/100ML D5W 500 MG/100 ML BAG IV STA (18:37)
[2023-08-31] MEDS ORDERED: TYLENOL 325 MG PO PRN (21:59)
--- NOTE | 2023-08-31 22:16 | PCM.HP ---
History of Present Illness - Chief Complaint Chief Complaint: "I had blood in my underwear" Date: 08/31/23 History of Present Illness: 58-year-old man with history of cerebral palsy, hypertension, seizures, CAD, and relatively recent subtotal colectomy with colostomy and urostomy, who presents with generalized weakness and reports of blood from his rectum. Per the ED, he was brought in by his caregiver because of 2 days of weakness, unable to walk, similar to his prior presentations with UTI. However, patient is a came in because for the last 2 days he has been having blood coming out from his rectum. 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 He notes that for the last 2 days has been a small amount of pink or red discharge coming from uncertain spot, but noted in his underwear. There is none currently, and has had no dark stool or blood in either his colostomy or urostomy pouches. He denies any abdominal pain currently. He has not had any rectal output since his surgery in April. He notes that at [facility], he can walk with a cane, but when he feels that his "legs do not work" anymore, and he was unable to walk in the emergency department today. He denies fevers, chills, nausea, or change in stool output. He has slightly decreased appetite, normal eating 3 meals a day, down to 2 meals a day currently. He has somewhat decreased mobility because his brother recently had surgery and is not allowed to do any heavy lifting for the next 12 months. However, he tries to transfer and walk with a cane when he can. - Review of Systems Constitutional: Weakness, No Fever, No Chills, No Lethargy Eyes: No Symptoms Ears, Nose, & Throat: No Symptoms Respiratory: No Symptoms Cardiac: No Symptoms Abdominal/Gastrointestinal: No Abdominal Pain, No Nausea, No Vomiting Musculoskeletal: Back Pain Skin: Rash (Perirectal, with some tenderness) Endocrine: No Symptoms Hematologic/Lymphatic: No Symptoms Immunological/Allergic: No Symptoms Medications & Allergies Home Medications: Home Medication List Omeprazole 40 mg PO DAILY 01/17/20 [History Confirmed 08/31/23] Escitalopram Oxalate [Lexapro] 10 mg PO DAILY 04/11/23 [History Confirmed 08/31/23] Aspirin EC 81 mg [Ecotrin 81 mg] 81 mg PO DAILY 30 Days #30 tablet 08/10/23 [Rx Confirmed 08/31/23] Spironolactone 25 mg [Aldactone 25 MG] 25 mg PO DAILY 08/31/23 [History Confirmed 08/31/23] Allergies/Adverse Reactions: Allergies Allergy/AdvReac Type Severity Reaction Status Date / Time diazepam [From Valium] Allergy Verified 08/31/23 13:49 Penicillins Allergy Verified 08/31/23 13:49 - Past Medical History Past Medical History: Yes Neurological History: Migraines, Seizures ENT History: Glaucoma Cardiac History: Arrhythmia, Myocardial Infarction ([place]) Endocrine Medical History: No Pertinent History Musculoskelatal History: Arthritis GI Medical History: Esophageal Disorder, GERD, Ulcer History: Other Pyscho-Social History: Anxiety, Depression, Panic Disorder Male Reproductive Disorders: Prostate Problems Comment: cerabral palsy, kidney failure, cancer polyps in bowels - Past Surgical History Past Surgical History: Yes Neuro Surgical History: No Pertinent History Cardiac History: No Pertinent History Respiratory Surgery: No Pertinent History GI Surgical History: Colon Resection, Other (Colostomy and urostomy placed in April 2023) Genitourinary Surgical Hx: Other Musculskeletal Surgical Hx: Orthopedic Surgery Male Surgical History: No Pertinent History Other Surgical History: colostomy, urostomy, right arm surgery, right leg surgery. (50 corrective surgeries) Significant Family History: no pertinent family hx - Social History Smoking Status: Never smoker Exposure to second hand smoke: No Alcohol: Occasionally Drug Use: none - Social Determinants of Health Will the patient participate in the screening: Yes Do you worry about a steady place to live?: No Do you have any problems with any of the following?: No known problems In the past 12 months,have you had to go without utilities?: No Have you or anyone in your house had to go without enough: No Transportation Issues: Yes Has anyone in your support network made you feel unsafe?: No Does the patient want assistance with any of the above?: Yes Comment: wanting help finding transporation - Physical Exam Vital Signs: Vital Signs - 24 hr Temp Pulse Resp BP BP Pulse Ox 08/31/23 21:10 98.4 F 67 18 116/66 96 08/31/23 20:42 72 18 142/87 98 08/31/23 20:01 80 19 147/117 98 08/31/23 19:30 96 H 12 130/85 96 08/31/23 19:16 68 19 126/86 98 08/31/23 18:11 97 08/31/23 17:40 76 17 08/31/23 17:30 78 12 08/31/23 17:20 75 21 08/31/23 17:10 83 20 08/31/23 17:00 76 23 98 08/31/23 16:50 67 21 98 08/31/23 16:40 76 22 98 08/31/23 16:30 66 21 99 08/31/23 16:20 75 20 96 08/31/23 16:10 79 19 08/31/23 16:00 74 18 96 08/31/23 15:50 100 08/31/23 15:30 77 08/31/23 15:20 78 08/31/23 15:10 78 16 08/31/23 15:00 75 18 97 08/31/23 14:50 74 99 08/31/23 14:40 75 98 08/31/23 14:30 75 98 08/31/23 14:20 77 98 08/31/23 14:10 77 18 98 08/31/23 14:00 75 13 98 08/31/23 13:38 98.7 F 75 12 116/83 97 GEN: Lying in bed in no acute distress NEURO: No focal deficits, although patient unable to stand so unable to fully assess CV: Regular rate & rhythm, no murmurs, no edema PULM: Clear to auscultation bilaterally, no work of breathing, on room air ABD: Soft, nondistended. Colostomy left of midline with brown stool, no melena or hematochezia noted. Urostomy/ileal conduit left of midline with yellow urine, but with some mild along the tubing and his catheter bag. : He has stage I pressure ulcer/redness in the perirectal area, with one area of particular tenderness with apparent moisture associated skin dermatitis. No open skin, no discharge, no bleeding noted. No evidence of old blood. PSYCH: Alert, oriented x3 Results - Labs Lab/Micro Results: Lab Results-Last 24 Hours 08/31/23 08/31/23 08/31/23 Range/Units 14:35 14:50 14:50 WBC 8.2 (4.0-10.5) x10^3/uL RBC 4.52 (4.1-5.6) x10^6/uL Hgb 12.3 L (12.5-18.0) g/dL Hct 40.0 L (42-50) % MCV 88.5 (78-100) fL MCH 27.2 (26-32) pg MCHC 30.8 L (32-36) g/dL RDW 16.7 H (11.5-14.0) % Plt Count 259 (150-450) x10^3/uL MPV 12.9 H (7.5-11.0) fL Gran % 66.1 H (36.0-66.0) % Immature Gran % (Auto) 0.4 (0.00-0.4) % Nucleat RBC Rel Count 0.0 (0.00-0.1) % Eos # (Auto) 0.37 (0-0.5) x10^3/uL Immature Gran # (Auto) 0.03 (0.00-0.03) x10^3u/L Absolute Lymphs (auto) 1.61 (1.0-4.6) x10^3/uL Absolute Monos (auto) 0.73 (0.0-1.3) x10^3/uL Absolute Nucleated RBC 0.00 (0.00-0.01) x10^3u/L Lymphocytes % 19.6 L (24.0-44.0) % Monocytes % 8.9 (0.0-12.0) % Eosinophils % 4.5 (0.00-5.0) % Basophils % 0.5 (0.0-0.4) % Absolute Granulocytes 5.44 (1.4-6.9) x10^3/uL Basophils # 0.04 (0-0.4) x10^3/uL Sodium 141 (135-145) mmol/L Potassium 3.8 (3.5-5.1) mmol/L Chloride 112 H (98-107) mmol/L Carbon Dioxide 22 (22-30) mmol/L Anion Gap 11.1 (5-15) MEQ/L BUN 20 (9-20) mg/dL Creatinine 1.11 (0.66-1.25) mg/dL Estimated GFR 77.5 ML/MIN Glucose 94 (74-106) mg/dL Lactic Acid 1.3 (0.4-2.0) Calcium 8.9 (8.4-10.2) mg/dL Total Bilirubin 0.20 (0.2-1.3) mg/dL AST 21 (17-59) U/L ALT 23 (0-50) U/L Alkaline Phosphatase 101 (38-126) U/L Serum Total Protein 7.6 (6.3-8.2) g/dL Albumin 4.2 (3.5-5.0) g/dL Procalcitonin (0.030-0.080) ng/mL Urine Color (Yellow) Urine Appearance (Clear) Urine pH (4.6-8.0) Ur Specific [place] (1.005-1.030) Urine Protein (Negative) Urine Glucose (UA) (Negative) mg/dL Urine Ketones (Negative) Urine Blood (Negative) Urine Nitrite (Negative) Urine Bilirubin (Negative) Urine Urobilinogen (0.2) mg/dL Ur Leukocyte Esterase (Negative) U Hyaline Cast (Auto) (0-2) /LPF Urine Microscopic RBC (0-5) /HPF Urine Microscopic WBC (0-5) /HPF Ur Epithelial Cells (None Seen) /HPF Urine Bacteria (None Seen) /HPF Urine Culture Reflexed (NO) 08/31/23 08/31/23 Range/Units 14:50 15:26 WBC (4.0-10.5) x10^3/uL RBC (4.1-5.6) x10^6/uL Hgb (12.5-18.0) g/dL Hct (42-50) % MCV (78-100) fL MCH (26-32) pg MCHC (32-36) g/dL RDW (11.5-14.0) % Plt Count (150-450) x10^3/uL MPV (7.5-11.0) fL Gran % (36.0-66.0) % Immature Gran % (Auto) (0.00-0.4) % Nucleat RBC Rel Count (0.00-0.1) % Eos # (Auto) (0-0.5) x10^3/uL Immature Gran # (Auto) (0.00-0.03) x10^3u/L Absolute Lymphs (auto) (1.0-4.6) x10^3/uL Absolute Monos (auto) (0.0-1.3) x10^3/uL Absolute Nucleated RBC (0.00-0.01) x10^3u/L Lymphocytes % (24.0-44.0) % Monocytes % (0.0-12.0) % Eosinophils % (0.00-5.0) % Basophils % (0.0-0.4) % Absolute Granulocytes (1.4-6.9) x10^3/uL Basophils # (0-0.4) x10^3/uL Sodium (135-145) mmol/L Potassium (3.5-5.1) mmol/L Chloride (98-107) mmol/L Carbon Dioxide (22-30) mmol/L Anion Gap (5-15) MEQ/L BUN (9-20) mg/dL Creatinine (0.66-1.25) mg/dL Estimated GFR ML/MIN Glucose (74-106) mg/dL Lactic Acid (0.4-2.0) Calcium (8.4-10.2) mg/dL Total Bilirubin (0.2-1.3) mg/dL AST (17-59) U/L ALT (0-50) U/L Alkaline Phosphatase (38-126) U/L Serum Total Protein (6.3-8.2) g/dL Albumin (3.5-5.0) g/dL Procalcitonin 0.079 (0.030-0.080) ng/mL Urine Color Yellow (Yellow) Urine Appearance Cloudy A (Clear) Urine pH 8.0 (4.6-8.0) Ur Specific [place] 1.020 (1.005-1.030) Urine Protein 30 (Negative) Urine Glucose (UA) Negative (Negative) mg/dL Urine Ketones Trace A (Negative) Urine Blood Negative (Negative) Urine Nitrite Positive A (Negative) Urine Bilirubin Negative (Negative) Urine Urobilinogen 0.2 (0.2) mg/dL Ur Leukocyte Esterase Small A (Negative) U Hyaline Cast (Auto) NONE SEEN (0-2) /LPF Urine Microscopic RBC 3-5 (0-5) /HPF Urine Microscopic WBC 21-50 A (0-5) /HPF Ur Epithelial Cells Rare (None Seen) /HPF Urine Bacteria Many A (None Seen) /HPF Urine Culture Reflexed YES (NO) - Radiology Impressions Radiology Exams & Impressions: Radiology Procedures Category Date Time Status ABDOMEN AND PELVIS W/0 CONTRAS [CT] Stat Exams 08/31/23 14:36 Completed RECONSTRUCTION [CT] Stat Exams 08/31/23 14:[address] abdomen/pelvis history of total cystectomy and partial colectomy with a left abdominal urostomy and colostomy. No focal findings. CT L-spine unchanged chronic L5-S1 degenerative disc disease Assessment/Plan (1) UTI (urinary tract infection) Current Visit: No Status: Acute Assessment & Plan: 58-year-old man with history of cerebral palsy, seizures, hypertension, CAD, and relatively recent cystectomy and partial colectomy, here with acute UTI. 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 Although in patients with an ileal conduit, it can be difficult to identify true infections, he remains at higher risk. As well, he has associated symptoms including his worsening generalized weakness, similar to his prior UTIs, as well as increased inflammation on his UA. Prior urine cultures reviewed, showing only E. coli that was generally sensitive except occasionally resistant to Ancef, Bactrim, and Unasyn, as well as Klebsiella oxytoca. He has a severe anaphylactic reaction to penicillin, and was given Levaquin in the ED. Of note, he was admitted to [place] 1 month ago with numbness and was treated for an E. coli UTI at that time. Continue Levaquin 500 milligrams IV q.24 hours Follow-up urine culture results ## Patient's concern for hematochezia no evidence of any hematochezia, and patient has a discontinuous GI tract at this time. I reassured patient that the residual distal large intestine and rectum can continue to have discharge of mucinous, often pink to red discharge even after a diverting colostomy, and this is normal. He has normal hemoglobin and no evidence of continued bleeding. ## Generalized weakness, cerebral palsy per history, likely a systemic sequela of his UTI above, in the setting of his cerebral palsy and baseline weakness. However, at baseline, able to walk with a cane. He also notes that he is out of his supplies for his colostomy and urostomy. Continue normal saline at 50 mL/h PT evaluation tomorrow if not feeling better problem manager evaluate for more home supply as well as current caregiver situation with his brother unable to assist with his mobility currently. ## Stage I sacral pressure ulcer Encourage patient mobility, including turning at least every 2 hours Will add barrier cream while here ## Hypertension blood pressure currently controlled Continue home spironolactone and lisinopril CODE STATUS: Full code Diet: Regular Prophylaxis: Heparin subcu q.8 hours Code(s): N39.0 - URINARY TRACT INFECTION, SITE NOT SPECIFIED Telemedicine Encounter - Telemedicine Encounter Telemedicine Encounter: The entirety of this encounter was performed via Telemedicine"
[2023-08-31] MEDS: Sodium Chloride 0.9% 1000 ML 1,000 ML IV SCH (23:12)
[2023-09-01] MEDS: HEPARIN 5000 UNITS/0.5 ML (HIGH RISK MED) SQ SCH (00:47)
[2023-09-01 04:57] LABS: Hematocrit 36.6 % (42-50); Hemoglobin 11.1 g/dL (12.5-18.0); Mean Cell Volume 88.4 fL (78-100); Mean Corpuscular Hemoglobin 26.8 pg (26-32); Mean Corpuscular Hgb Concent. 30.3 g/dL (32-36); Mean Platelet Volume 12.3 fL (7.5-11.0); Platelet Count 222 x10^3/uL (150-450); Red Blood Count 4.14 x10^6/uL (4.1-5.6); Red Cell Distribution Width 16.6 % (11.5-14.0); White Blood Count 7.7 x10^3/uL (4.0-10.5)
[2023-09-01 05:19] LABS: ANION GAP 10.8 MEQ/L (5-15); Calcium 8.7 mg/dL (8.4-10.2); Creatinine 1 0.8 mg/dL (0.66-1.25); EST GLOMERULAR FILTRATION RATE 103.2 ML/MIN
--- NOTE | 2023-09-01 06:02 | PCM.NOTE ---
Date and Time: 09/01/23 0558 Subjective Assessment: 58 year old male with relatively recent urostomy and colostomy admitted 08/31/23 with UTI after experiencing a two day history of generalized weakness. Previous cultures growing ecoli. Levaquin started, cultures pending. Patient additionally reported BPR as there has been a small amount of pink/red discharge noted in his underwear. Of note, there is no evidence of any hematochezia, and patient has a discontinuous GI tract at this time.Patient has been reassured that the residual distal large intestine and rectum can continue to have discharge of mucinous, often pink to red discharge even after a diverting colostomy, and this is normal. He has normal hemoglobin and no evidence of continued bleeding. Objective Data Vital Signs: Vital Signs - 24 hr Temp Pulse Resp BP BP Pulse Ox 09/01/23 04:00 98.5 F 63 18 134/75 95 09/01/23 00:00 97.8 F 65 16 115/73 98 08/31/23 22:59 97 08/31/23 21:10 98.4 F 67 18 116/66 96 08/31/23 20:42 72 18 142/87 98 08/31/23 20:01 80 19 147/117 98 08/31/23 19:30 96 H 12 130/85 96 08/31/23 19:16 68 19 126/86 98 08/31/23 17:40 76 17 08/31/23 17:30 78 12 08/31/23 17:20 75 21 08/31/23 17:10 83 20 08/31/23 17:00 76 23 98 08/31/23 16:50 67 21 98 08/31/23 16:40 76 22 98 08/31/23 16:30 66 21 99 08/31/23 16:20 75 20 96 08/31/23 16:10 79 19 08/31/23 16:00 74 18 96 08/31/23 15:50 100 08/31/23 15:30 77 08/31/23 15:20 78 08/31/23 15:10 78 16 08/31/23 15:00 75 18 97 08/31/23 14:50 74 99 08/31/23 14:40 75 98 08/31/23 14:30 75 98 08/31/23 14:20 77 98 08/31/23 14:10 77 18 98 08/31/23 14:00 75 13 98 08/31/23 13:38 98.7 F 75 12 116/83 97 Pain Assessment - Last Documented Pain Intensity 0 Intake and Output: Intake & Output 08/29/23 08/30/23 08/31/23 09/01/23 11:59 11:59 11:59 11:59 Intake Total 662 Output Total 1300 Balance -638 Weight 54.5 kg Lab Results: Lab Results-Last 24 Hours 08/31/23 08/31/23 08/31/23 Range/Units 14:35 14:50 14:50 WBC 8.2 (4.0-10.5) x10^3/uL RBC 4.52 (4.1-5.6) x10^6/uL Hgb 12.3 L (12.5-18.0) g/dL Hct 40.0 L (42-50) % MCV 88.5 (78-100) fL MCH 27.2 (26-32) pg MCHC 30.8 L (32-36) g/dL RDW 16.7 H (11.5-14.0) % Plt Count 259 (150-450) x10^3/uL MPV 12.9 H (7.5-11.0) fL Gran % 66.1 H (36.0-66.0) % Immature Gran % (Auto) 0.4 (0.00-0.4) % Nucleat RBC Rel Count 0.0 (0.00-0.1) % Eos # (Auto) 0.37 (0-0.5) x10^3/uL Immature Gran # (Auto) 0.03 (0.00-0.03) x10^3u/L Absolute Lymphs (auto) 1.61 (1.0-4.6) x10^3/uL Absolute Monos (auto) 0.73 (0.0-1.3) x10^3/uL Absolute Nucleated RBC 0.00 (0.00-0.01) x10^3u/L Lymphocytes % 19.6 L (24.0-44.0) % Monocytes % 8.9 (0.0-12.0) % Eosinophils % 4.5 (0.00-5.0) % Basophils % 0.5 (0.0-0.4) % Absolute Granulocytes 5.44 (1.4-6.9) x10^3/uL Basophils # 0.04 (0-0.4) x10^3/uL Sodium 141 (135-145) mmol/L Potassium 3.8 (3.5-5.1) mmol/L Chloride 112 H (98-107) mmol/L Carbon Dioxide 22 (22-30) mmol/L Anion Gap 11.1 (5-15) MEQ/L BUN 20 (9-20) mg/dL Creatinine 1.11 (0.66-1.25) mg/dL Estimated GFR 77.5 ML/MIN Glucose 94 (74-106) mg/dL Lactic Acid 1.3 (0.4-2.0) Calcium 8.9 (8.4-10.2) mg/dL Total Bilirubin 0.20 (0.2-1.3) mg/dL AST 21 (17-59) U/L ALT 23 (0-50) U/L Alkaline Phosphatase 101 (38-126) U/L Serum Total Protein 7.6 (6.3-8.2) g/dL Albumin 4.2 (3.5-5.0) g/dL Procalcitonin (0.030-0.080) ng/mL Urine Color (Yellow) Urine Appearance (Clear) Urine pH (4.6-8.0) Ur Specific [place] (1.005-1.030) Urine Protein (Negative) Urine Glucose (UA) (Negative) mg/dL Urine Ketones (Negative) Urine Blood (Negative) Urine Nitrite (Negative) Urine Bilirubin (Negative) Urine Urobilinogen (0.2) mg/dL Ur Leukocyte Esterase (Negative) U Hyaline Cast (Auto) (0-2) /LPF Urine Microscopic RBC (0-5) /HPF Urine Microscopic WBC (0-5) /HPF Ur Epithelial Cells (None Seen) /HPF Urine Bacteria (None Seen) /HPF Urine Culture Reflexed (NO) 08/31/23 08/31/23 09/01/23 Range/Units 14:50 15:26 04:52 WBC 7.7 (4.0-10.5) x10^3/uL RBC 4.14 (4.1-5.6) x10^6/uL Hgb 11.1 L (12.5-18.0) g/dL Hct 36.6 L (42-50) % MCV 88.4 (78-100) fL MCH 26.8 (26-32) pg MCHC 30.3 L (32-36) g/dL RDW 16.6 H (11.5-14.0) % Plt Count 222 (150-450) x10^3/uL MPV 12.3 H (7.5-11.0) fL Gran % (36.0-66.0) % Immature Gran % (Auto) (0.00-0.4) % Nucleat RBC Rel Count (0.00-0.1) % Eos # (Auto) (0-0.5) x10^3/uL Immature Gran # (Auto) (0.00-0.03) x10^3u/L Absolute Lymphs (auto) (1.0-4.6) x10^3/uL Absolute Monos (auto) (0.0-1.3) x10^3/uL Absolute Nucleated RBC (0.00-0.01) x10^3u/L Lymphocytes % (24.0-44.0) % Monocytes % (0.0-12.0) % Eosinophils % (0.00-5.0) % Basophils % (0.0-0.4) % Absolute Granulocytes (1.4-6.9) x10^3/uL Basophils # (0-0.4) x10^3/uL Sodium (135-145) mmol/L Potassium (3.5-5.1) mmol/L Chloride (98-107) mmol/L Carbon Dioxide (22-30) mmol/L Anion Gap (5-15) MEQ/L BUN (9-20) mg/dL Creatinine (0.66-1.25) mg/dL Estimated GFR ML/MIN Glucose (74-106) mg/dL Lactic Acid (0.4-2.0) Calcium (8.4-10.2) mg/dL Total Bilirubin (0.2-1.3) mg/dL AST (17-59) U/L ALT (0-50) U/L Alkaline Phosphatase (38-126) U/L Serum Total Protein (6.3-8.2) g/dL Albumin (3.5-5.0) g/dL Procalcitonin 0.079 (0.030-0.080) ng/mL Urine Color Yellow (Yellow) Urine Appearance Cloudy A (Clear) Urine pH 8.0 (4.6-8.0) Ur Specific [place] 1.020 (1.005-1.030) Urine Protein 30 (Negative) Urine Glucose (UA) Negative (Negative) mg/dL Urine Ketones Trace A (Negative) Urine Blood Negative (Negative) Urine Nitrite Positive A (Negative) Urine Bilirubin Negative (Negative) Urine Urobilinogen 0.2 (0.2) mg/dL Ur Leukocyte Esterase Small A (Negative) U Hyaline Cast (Auto) NONE SEEN (0-2) /LPF Urine Microscopic RBC 3-5 (0-5) /HPF Urine Microscopic WBC 21-50 A (0-5) /HPF Ur Epithelial Cells Rare (None Seen) /HPF Urine Bacteria Many A (None Seen) /HPF Urine Culture Reflexed YES (NO) 09/01/23 Range/Units 04:52 WBC (4.0-10.5) x10^3/uL RBC (4.1-5.6) x10^6/uL Hgb (12.5-18.0) g/dL Hct (42-50) % MCV (78-100) fL MCH (26-32) pg MCHC (32-36) g/dL RDW (11.5-14.0) % Plt Count (150-450) x10^3/uL MPV (7.5-11.0) fL Gran % (36.0-66.0) % Immature Gran % (Auto) (0.00-0.4) % Nucleat RBC Rel Count (0.00-0.1) % Eos # (Auto) (0-0.5) x10^3/uL Immature Gran # (Auto) (0.00-0.03) x10^3u/L Absolute Lymphs (auto) (1.0-4.6) x10^3/uL Absolute Monos (auto) (0.0-1.3) x10^3/uL Absolute Nucleated RBC (0.00-0.01) x10^3u/L Lymphocytes % (24.0-44.0) % Monocytes % (0.0-12.0) % Eosinophils % (0.00-5.0) % Basophils % (0.0-0.4) % Absolute Granulocytes (1.4-6.9) x10^3/uL Basophils # (0-0.4) x10^3/uL Sodium 140 (135-145) mmol/L Potassium 4.0 (3.5-5.1) mmol/L Chloride 113 H (98-107) mmol/L Carbon Dioxide 20 L (22-30) mmol/L Anion Gap 10.8 (5-15) MEQ/L BUN 14 (9-20) mg/dL Creatinine 0.80 (0.66-1.25) mg/dL Estimated GFR 103.2 ML/MIN Glucose 93 (74-106) mg/dL Lactic Acid (0.4-2.0) Calcium 8.7 (8.4-10.2) mg/dL Total Bilirubin (0.2-1.3) mg/dL AST (17-59) U/L ALT (0-50) U/L Alkaline Phosphatase (38-126) U/L Serum Total Protein (6.3-8.2) g/dL Albumin (3.5-5.0) g/dL Procalcitonin (0.030-0.080) ng/mL Urine Color (Yellow) Urine Appearance (Clear) Urine pH (4.6-8.0) Ur Specific [place] (1.005-1.030) Urine Protein (Negative) Urine Glucose (UA) (Negative) mg/dL Urine Ketones (Negative) Urine Blood (Negative) Urine Nitrite (Negative) Urine Bilirubin (Negative) Urine Urobilinogen (0.2) mg/dL Ur Leukocyte Esterase (Negative) U Hyaline Cast (Auto) (0-2) /LPF Urine Microscopic RBC (0-5) /HPF Urine Microscopic WBC (0-5) /HPF Ur Epithelial Cells (None Seen) /HPF Urine Bacteria (None Seen) /HPF Urine Culture Reflexed (NO) Radiology Exams: Radiology Procedures Category Date Time Status ABDOMEN AND PELVIS W/0 CONTRAS [CT] Stat Exams 08/31/23 14:36 Completed RECONSTRUCTION [CT] Stat Exams 08/31/23 14:36 Completed Assessment/Plan (1) Complicated UTI (urinary tract infection) Current Visit: Yes Status: Acute Assessment & Plan: -UA suspicious for UTI, started on levaquin, will follow culture -Severe anaphylactic reaction to penicillin Code(s): N39.0 - URINARY TRACT INFECTION, SITE NOT SPECIFIED (2) Generalized weakness Current Visit: Yes Status: Acute Assessment & Plan: -Gentle hydration -PT/OT evaluation -CM consult for home needs Code(s): R53.1 - WEAKNESS (3) Stage 1 skin ulcer of sacral region Current Visit: Yes Status: Acute Assessment & Plan: Encourage patient mobility, including turning at least every 2 hours Barrier cream while here Code(s): L98.429 - NON-PRESSURE CHRONIC ULCER OF BACK WITH UNSPECIFIED SEVERITY (4) Hypertension Current Visit: Yes Status: Acute Assessment & Plan: -Stable continue home meds CODE STATUS: Full code Diet: Regular Prophylaxis: Heparin subcu q.8 hours Code(s): I10 - ESSENTIAL (PRIMARY) HYPERTENSION
[2023-09-01] MEDS: Protonix 40MG Tablet PO SCH (09:37)
[2023-09-01] MEDS: Aldactone 25 MG PO SCH (09:37)
[2023-09-01] MEDS: Levofloxacin 500MG/100ML D5W 500 MG/100 ML BAG IV SCH (09:37)
[2023-09-01] MEDS: ECOTRIN 81 MG PO SCH (09:37)
[2023-09-01] MEDS ORDERED: Lexapro PO SCH (10:00)
[2023-09-01] MEDS ORDERED: NON-FORMULARY ITEM (Omeprazole [Omeprazole] 40 MG Capsule.Dr) PO SCH (10:00)
[2023-09-01 11:06] LABS: Appearance Cloudy (Clear); Bacteria Many /HPF (None Seen); Bilirubin Negative (Negative); Blood Negative (Negative); Epithelial Cells Rare /HPF (None Seen); Glucose, Urine Negative (Negative); Hyaline Casts NONE SEEN /LPF (0-2); Ketones Negative (Negative); Leukocyte Esterase Negative (Negative); Nitrite Negative (Negative); Ph 8.5 (4.6-8.0); Protein,Urine Dip Trace (Negative); RBC 0-2 /HPF (0-5); Specific Gravity 1.015 (1.005-1.030); Urobilinogen 0.2 mg/dL (0.2)
--- NOTE | 2023-09-01 11:07 | PCM.DS ---
Discharge Summary Date of Admission: 08/31/23 20:38 Date of Discharge: 09/01/23 Admitting Physician: MELINDA CLEMENTS MD Primary Care Provider: MARQUES GUALLPA MD Allergies Allergies diazepam [From Valium] Allergy (Verified 08/31/23 13:49) Penicillins Allergy (Verified 08/31/23 13:49) Hospital Summary - Hospital Course Hospital Course: 58 year old male with relatively recent urostomy and colostomy admitted 08/31/23 with UTI after experiencing a two day history of generalized weakness. Previous cultures growing ecoli. Levaquin started initially, cultures with mixed facundo. No need for antibiotics. Patient additionally reported BPR as there has been a small amount of pink/red discharge noted in his underwear. Of note, there is no evidence of any hematochezia, and patient has a discontinuous GI tract at this time.Patient has been reassured that the residual distal large intestine and rectum can continue to have discharge of mucinous, often pink to red discharge even after a diverting colostomy, and this is normal. He has normal hemoglobin and no evidence of continued bleeding. He does have some shearing on his buttocks which is what I believe he is seeing. He has been provided with barrier cream and advised to offset and change positions frequently. Discussed with home health aid getting him a waffle cushion while sitting, they will look into this. PT has worked with patient, he is at his baseline, no longer experiencing weakness that brought him in. Patient agreeable to plan and stable for discharge. Discharge Note New Diagnosis: Generalized weakness New Medications:none Follow Up: PCP Latest Assessment & Plan (1) Complicated UTI (urinary tract infection) Current Visit: Yes Status: Acute Assessment & Plan: -UA suspicious for UTI, started on levaquin, will follow culture -Severe anaphylactic reaction to penicillin 08/31: ucult with normal skin facundo, abx discontinued Code(s): N39.0 - URINARY TRACT INFECTION, SITE NOT SPECIFIED (2) Generalized weakness Current Visit: Yes Status: Acute Assessment & Plan: -Gentle hydration -PT/OT evaluation -CM consult for home needs 08/31 -PT evaluated patient - he is safe for discharge with [facility] -at baseline Code(s): R53.1 - WEAKNESS (3) Stage 1 skin ulcer of sacral region Current Visit: Yes Status: Acute Assessment & Plan: Encourage patient mobility, including turning at least every 2 hours Barrier cream while here 08/31: -Shearing of bilateral buttocks- advised barrier cream/waffle cushion Code(s): L98.429 - NON-PRESSURE CHRONIC ULCER OF BACK WITH UNSPECIFIED SEVERITY (4) Hypertension Current Visit: Yes Status: Acute Assessment & Plan: -Stable continue home meds I spent 35 minutes [id number] with the patient on the day of discharge performing discharge exam, discussing hospital stay and discharge instructions with patient and caregivers, preparation of discharge records, prescriptions & referral forms and addressing any questions/concerns the patient had as documented above. - Vitals & Intake/Output Vital Signs: Vital Signs Temperature 97.7 F 09/01/23 07:06 Pulse Rate 70 09/01/23 07:06 Respiratory Rate 18 09/01/23 07:06 Blood Pressure 103/54 09/01/23 07:06 O2 Sat by Pulse Oximetry 98 09/01/23 07:06 Intake & Output: Intake & Output 08/29/23 08/30/23 08/31/23 09/01/23 11:59 11:59 11:59 11:59 Intake Total 1142 Output Total 1900 Balance -758 Weight 54.5 kg - Lab Result Diagrams: 09/01/23 04:52 09/01/23 04:52 Lab Results-Last 24 Hrs: Lab Results-Last 24 Hours 08/31/23 08/31/23 08/31/23 Range/Units 14:35 14:50 14:50 WBC 8.2 (4.0-10.5) x10^3/uL RBC 4.52 (4.1-5.6) x10^6/uL Hgb 12.3 L (12.5-18.0) g/dL Hct 40.0 L (42-50) % MCV 88.5 (78-100) fL MCH 27.2 (26-32) pg MCHC 30.8 L (32-36) g/dL RDW 16.7 H (11.5-14.0) % Plt Count 259 (150-450) x10^3/uL MPV 12.9 H (7.5-11.0) fL Gran % 66.1 H (36.0-66.0) % Immature Gran % (Auto) 0.4 (0.00-0.4) % Nucleat RBC Rel Count 0.0 (0.00-0.1) % Eos # (Auto) 0.37 (0-0.5) x10^3/uL Immature Gran # (Auto) 0.03 (0.00-0.03) x10^3u/L Absolute Lymphs (auto) 1.61 (1.0-4.6) x10^3/uL Absolute Monos (auto) 0.73 (0.0-1.3) x10^3/uL Absolute Nucleated RBC 0.00 (0.00-0.01) x10^3u/L Lymphocytes % 19.6 L (24.0-44.0) % Monocytes % 8.9 (0.0-12.0) % Eosinophils % 4.5 (0.00-5.0) % Basophils % 0.5 (0.0-0.4) % Absolute Granulocytes 5.44 (1.4-6.9) x10^3/uL Basophils # 0.04 (0-0.4) x10^3/uL Sodium 141 (135-145) mmol/L Potassium 3.8 (3.5-5.1) mmol/L Chloride 112 H (98-107) mmol/L Carbon Dioxide 22 (22-30) mmol/L Anion Gap 11.1 (5-15) MEQ/L BUN 20 (9-20) mg/dL Creatinine 1.11 (0.66-1.25) mg/dL Estimated GFR 77.5 ML/MIN Glucose 94 (74-106) mg/dL Lactic Acid 1.3 (0.4-2.0) Calcium 8.9 (8.4-10.2) mg/dL Total Bilirubin 0.20 (0.2-1.3) mg/dL AST 21 (17-59) U/L ALT 23 (0-50) U/L Alkaline Phosphatase 101 (38-126) U/L Serum Total Protein 7.6 (6.3-8.2) g/dL Albumin 4.2 (3.5-5.0) g/dL Procalcitonin (0.030-0.080) ng/mL Urine Color (Yellow) Urine Appearance (Clear) Urine pH (4.6-8.0) Ur Specific [place] (1.005-1.030) Urine Protein (Negative) Urine Glucose (UA) (Negative) mg/dL Urine Ketones (Negative) Urine Blood (Negative) Urine Nitrite (Negative) Urine Bilirubin (Negative) Urine Urobilinogen (0.2) mg/dL Ur Leukocyte Esterase (Negative) U Hyaline Cast (Auto) (0-2) /LPF Urine Microscopic RBC (0-5) /HPF Urine Microscopic WBC (0-5) /HPF Ur Epithelial Cells (None Seen) /HPF Urine Bacteria (None Seen) /HPF Urine Culture Reflexed (NO) 08/31/23 08/31/23 09/01/23 Range/Units 14:50 15:26 04:52 WBC 7.7 (4.0-10.5) x10^3/uL RBC 4.14 (4.1-5.6) x10^6/uL Hgb 11.1 L (12.5-18.0) g/dL Hct 36.6 L (42-50) % MCV 88.4 (78-100) fL MCH 26.8 (26-32) pg MCHC 30.3 L (32-36) g/dL RDW 16.6 H (11.5-14.0) % Plt Count 222 (150-450) x10^3/uL MPV 12.3 H (7.5-11.0) fL Gran % (36.0-66.0) % Immature Gran % (Auto) (0.00-0.4) % Nucleat RBC Rel Count (0.00-0.1) % Eos # (Auto) (0-0.5) x10^3/uL Immature Gran # (Auto) (0.00-0.03) x10^3u/L Absolute Lymphs (auto) (1.0-4.6) x10^3/uL Absolute Monos (auto) (0.0-1.3) x10^3/uL Absolute Nucleated RBC (0.00-0.01) x10^3u/L Lymphocytes % (24.0-44.0) % Monocytes % (0.0-12.0) % Eosinophils % (0.00-5.0) % Basophils % (0.0-0.4) % Absolute Granulocytes (1.4-6.9) x10^3/uL Basophils # (0-0.4) x10^3/uL Sodium (135-145) mmol/L Potassium (3.5-5.1) mmol/L Chloride (98-107) mmol/L Carbon Dioxide (22-30) mmol/L Anion Gap (5-15) MEQ/L BUN (9-20) mg/dL Creatinine (0.66-1.25) mg/dL Estimated GFR ML/MIN Glucose (74-106) mg/dL Lactic Acid (0.4-2.0) Calcium (8.4-10.2) mg/dL Total Bilirubin (0.2-1.3) mg/dL AST (17-59) U/L ALT (0-50) U/L Alkaline Phosphatase (38-126) U/L Serum Total Protein (6.3-8.2) g/dL Albumin (3.5-5.0) g/dL Procalcitonin 0.079 (0.030-0.080) ng/mL Urine Color Yellow (Yellow) Urine Appearance Cloudy A (Clear) Urine pH 8.0 (4.6-8.0) Ur Specific [place] 1.020 (1.005-1.030) Urine Protein 30 (Negative) Urine Glucose (UA) Negative (Negative) mg/dL Urine Ketones Trace A (Negative) Urine Blood Negative (Negative) Urine Nitrite Positive A (Negative) Urine Bilirubin Negative (Negative) Urine Urobilinogen 0.2 (0.2) mg/dL Ur Leukocyte Esterase Small A (Negative) U Hyaline Cast (Auto) NONE SEEN (0-2) /LPF Urine Microscopic RBC 3-5 (0-5) /HPF Urine Microscopic WBC 21-50 A (0-5) /HPF Ur Epithelial Cells Rare (None Seen) /HPF Urine Bacteria Many A (None Seen) /HPF Urine Culture Reflexed YES (NO) 09/01/23 Range/Units 04:52 WBC (4.0-10.5) x10^3/uL RBC (4.1-5.6) x10^6/uL Hgb (12.5-18.0) g/dL Hct (42-50) % MCV (78-100) fL MCH (26-32) pg MCHC (32-36) g/dL RDW (11.5-14.0) % Plt Count (150-450) x10^3/uL MPV (7.5-11.0) fL Gran % (36.0-66.0) % Immature Gran % (Auto) (0.00-0.4) % Nucleat RBC Rel Count (0.00-0.1) % Eos # (Auto) (0-0.5) x10^3/uL Immature Gran # (Auto) (0.00-0.03) x10^3u/L Absolute Lymphs (auto) (1.0-4.6) x10^3/uL Absolute Monos (auto) (0.0-1.3) x10^3/uL Absolute Nucleated RBC (0.00-0.01) x10^3u/L Lymphocytes % (24.0-44.0) % Monocytes % (0.0-12.0) % Eosinophils % (0.00-5.0) % Basophils % (0.0-0.4) % Absolute Granulocytes (1.4-6.9) x10^3/uL Basophils # (0-0.4) x10^3/uL Sodium 140 (135-145) mmol/L Potassium 4.0 (3.5-5.1) mmol/L Chloride 113 H (98-107) mmol/L Carbon Dioxide 20 L (22-30) mmol/L Anion Gap 10.8 (5-15) MEQ/L BUN 14 (9-20) mg/dL Creatinine 0.80 (0.66-1.25) mg/dL Estimated GFR 103.2 ML/MIN Glucose 93 (74-106) mg/dL Lactic Acid (0.4-2.0) Calcium 8.7 (8.4-10.2) mg/dL Total Bilirubin (0.2-1.3) mg/dL AST (17-59) U/L ALT (0-50) U/L Alkaline Phosphatase (38-126) U/L Serum Total Protein (6.3-8.2) g/dL Albumin (3.5-5.0) g/dL Procalcitonin (0.030-0.080) ng/mL Urine Color (Yellow) Urine Appearance (Clear) Urine pH (4.6-8.0) Ur Specific [place] (1.005-1.030) Urine Protein (Negative) Urine Glucose (UA) (Negative) mg/dL Urine Ketones (Negative) Urine Blood (Negative) Urine Nitrite (Negative) Urine Bilirubin (Negative) Urine Urobilinogen (0.2) mg/dL Ur Leukocyte Esterase (Negative) U Hyaline Cast (Auto) (0-2) /LPF Urine Microscopic RBC (0-5) /HPF Urine Microscopic WBC (0-5) /HPF Ur Epithelial Cells (None Seen) /HPF Urine Bacteria (None Seen) /HPF Urine Culture Reflexed (NO) Micro Results-Entire Visit: Microbiology 08/31/23 15:26 Urine Culture - Final Clean Catch Midstream MIXED FACUNDO; 3 OR MORE TYPES. NO PREDOMINANT ORGANISM. NO FURTHER WORKUP. PLEASE RESUBMIT IF CLINICALLY INDICATED. - Radiology Exams Ordered Rad Exams-Entire Visit: Radiology Procedures Category Date Time Status ABDOMEN AND PELVIS W/0 CONTRAS [CT] Stat Exams 08/31/23 14:36 Completed RECONSTRUCTION [CT] Stat Exams 08/31/23 14:36 Completed - Procedures and Test Procedures and Tests throughout Hospitalization: Therapy Orders & Screens 08/31/23 21:58 PT Eval & Treat ( Order) ONCE Reason for Eval:: generalized weakness, eval & treat Diagnosis: Acute UTI, generalized weakness Discharge Exam General Appearance: no apparent distress Neurologic Exam: alert, oriented x 3, cooperative Eye Exam: PERRL Ears, Nose, Throat Exam: normal ENT inspection Neck Exam: normal inspection Respiratory Exam: normal breath sounds, lungs clear Cardiovascular Exam: regular rate/rhythm, normal heart sounds Gastrointestinal/Abdomen Exam: soft, normal bowel sounds, other (colostomy/urostomy) Male Genitalia Exam: deferred Rectal Exam: deferred Extremity Exam: limited range of motion Skin Exam: other (bilateral buttock shearing) Wound Assessment: Skin/Wound Assessment Wound/Incision Assessment Start: 09/01/23 08:10 Text: Status: Active Freq: Q6H Protocol: Document 09/01/23 08:10 INOCENCIO (Rec: 09/01/23 09:00 INOCENCIO [id number]) Wound/Incision Assessment Posterior Buttock Wound Assessment Shift Assessment Wound Type Pressure Ulcer Comment Patients buttock is reddened and blanchable. Left buttock more red than right with shearing noted to the left buttock. Barrier cream applied PRN and frequent weight shifting with pillow support provided. Wound Photo Photo Taken No Comment: Taken on previous shift. See chart for picture. Final Diagnosis/Problem List - Final Discharge Diagnosis/Problem (1) Complicated UTI (urinary tract infection) Current Visit: Yes Status: Ruled-out Code(s): N39.0 - URINARY TRACT INFECTION, SITE NOT SPECIFIED (2) Generalized weakness Current Visit: Yes Status: Resolved Code(s): R53.1 - WEAKNESS (3) Stage 1 skin ulcer of sacral region Current Visit: Yes Status: Acute Code(s): L98.429 - NON-PRESSURE CHRONIC ULCER OF BACK WITH UNSPECIFIED SEVERITY (4) Hypertension Current Visit: Yes Status: Chronic Code(s): I10 - ESSENTIAL (PRIMARY) HYPERTENSION - Discharge Disposition: Home, Self-Care Condition: Stable Prescriptions: Continue Omeprazole 40 mg PO DAILY Escitalopram Oxalate [Lexapro] 10 mg PO DAILY Aspirin EC 81 mg [Ecotrin 81 mg] 81 mg PO DAILY 30 Days #30 tablet Spironolactone 25 mg [Aldactone 25 MG] 25 mg PO DAILY Instructions: Urinary Tract Infection, Adult (DC) Forms: Discharge Instructions
[2023-09-01 11:08] LABS: ADD URINE CULTURE? YES (NO)
[2023-09-01 11:24] VITALS: BP 126/85; PULSE 80; RESP 19; TEMP 97.8; O2SAT 96
== END 2023-09-01 11:37 | disposition home health service (06) ==
LOC: ED 13:35 → MED SURG 20:38
PROVIDERS: ADMIT Internal Medicine; ATTEND Internal Medicine
DX: N39.0 Urinary tract infection, site not specified (principal); R53.1 Weakness; L98.429 Non-pressure chronic ulcer of back with unspecified severity; L89.301 Pressure ulcer of unspecified buttock, stage 1; I10 Essential (primary) hypertension; G80.9 Cerebral palsy, unspecified; I25.10 Atherosclerotic heart disease of native coronary artery without angina pectoris; K62.5 Hemorrhage of anus and rectum; Z79.899 Other long term (current) drug therapy; Z59.82 Transportation insecurity
CPT/HCPCS: 36000; 36415; 74176; 76376; 80048; 80053; 81001; 83605; 84145; 85025; 85027; 87040; 87086; 96365; 99285; G0378; Q3014; J1644; J1956; A9270-GY

== ENCOUNTER 2023-10-23 18:48 | Emergency (ER) | payer MEDICARE ==
[2023-10-23 18:50] VITALS: RESP 20; TEMP 98.2
[2023-10-23] MEDS ORDERED: Sodium Chloride 0.9% 500 ML 500 ML IV ONE (19:59)
[2023-10-23] MEDS: Sodium Chloride 0.9% 500 ML 500 ML IV ONE (20:13)
--- NOTE | 2023-10-23 20:24 | ERPHSYRPT ---
- History of Present Illness Time Seen by Provider: 10/23/23 19:47 Source: patient, EMS Exam Limitations: no limitations Physician History: 58-year-old male with history of cerebral palsy with contractures in upper extremity, partial colectomy with colostomy and urostomy, having issues with balance at baseline presented in the ER with generalized weakness fatigue and t iredness. Patient denies any fever or chills. Reports he feels weak all over and has no energy to do his routine activities. Reports having similar symptoms in the past with UTI. No abdominal pain nausea or vomiting. Denies any chest pain palpitations or shortness of breath. No known sick contact. Allergies/Adverse Reactions: diazepam [From Valium] Allergy (Verified 08/31/23 13:49) Penicillins Allergy (Verified 08/31/23 13:49) Home Medications: Omeprazole 40 mg PO DAILY 01/17/20 [History] Escitalopram Oxalate [Lexapro] 10 mg PO DAILY 04/11/23 [History] Spironolactone 25 mg [Aldactone 25 MG] 25 mg PO DAILY 08/31/23 [History] Hx Tetanus, Diphtheria Vaccination/Date Given: Yes Hx Influenza Vaccination/Date Given: No Hx Pneumococcal Vaccination/Date Given: No Travel Risk - Emerging Infectious Disease Are you exhibiting symptoms associated with any current EIDs: No - Review of Systems Constitutional: Fatigue, Weakness Eyes: No Symptoms Ears, Nose, & Throat: No Symptoms Respiratory: No Symptoms Cardiac: No Symptoms Abdominal/Gastrointestinal: No Symptoms Genitourinary Symptoms: No Symptoms Musculoskeletal: Arthralgias Skin: No Symptoms Neurological: No Symptoms Hematologic/Lymphatic: No Symptoms Immunological/Allergic: No Symptoms - Past Medical History Pertinent Past Medical History: Yes Neurological History: Paralysis ENT History: Glaucoma Cardiac History: Arrhythmia, Myocardial Infarction ([place]) Respiratory History: No Pertinent History Endocrine Medical History: No Pertinent History Musculoskeletal History: Arthritis GI Medical History: Esophageal Disorder, GERD, Ulcer History: Other Psycho-Social History: Anxiety, Depression, Panic Disorder Male Reproductive Disorders: Prostate Problems Other Medical History: cerabral palsy, kidney failure, 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 (50 corrective surgeries) Significant Family History: no pertinent family hx - Social History Smoking Status: Never smoker Exposure to second hand smoke: No Drug Use: none Patient Lives Alone: Yes - Social Determinants of Health Will the patient participate in the screening: Yes Do you worry about a steady place to live?: No In the past 12 months,have you had to go without utilities?: No Transportation Issues: Yes Has anyone in your support network made you feel unsafe?: No Have you or anyone in your house had to go without enough: No Comment: wanting help finding transporation - Nursing Vital Signs Nursing Vital Signs: Initial Vital Signs Temperature 98.2 F 10/23/23 18:48 Pulse Rate 74 10/23/23 18:48 Respiratory Rate 20 10/23/23 18:48 Blood Pressure 134/95 10/23/23 18:48 O2 Sat by Pulse Oximetry 97 10/23/23 18:48 Pain Scale Pain Intensity 0 - Physical Exam General Appearance: no apparent distress, alert Eye Exam: PERRL/EOMI Ears, Nose, Throat Exam: normal ENT inspection, TMs normal, pharynx normal, moist mucous membranes Neck Exam: normal inspection, non-tender, supple, full range of motion Respiratory Exam: normal breath sounds, lungs clear Cardiovascular Exam: regular rate/rhythm, normal heart sounds Gastrointestinal/Abdomen Exam: soft, tenderness (Mild tenderness around colostomy and urostomy. No rebound tenderness or guarding. Both have outputs.) Extremity Exam: pelvis stable Neurologic Exam: alert, oriented x 3, cooperative Skin Exam: normal color SpO2 Interpretation: normal SpO2: 97 O2 Delivery: Room Air Ordered Tests: Active Orders 24 hr Category Date Time Status IV Insertion STAT Care 10/23/23 19:49 Active ACO SDOH Referral ONCE Cons 10/23/23 21:20 Active CHEST 1 VIEW (PORTABLE) Stat Exams 10/23/23 20:17 Taken BLOOD CULTURE Stat Lab 10/23/23 20:08 Received CBC W DIFF Stat Lab 10/23/23 20:04 Completed CMP Stat Lab 10/23/23 20:04 Completed CULTURE,URINE Stat Lab 10/23/23 20:20 Received LIPASE Stat Lab 10/23/23 20:04 Completed Lactic Acid Stat Lab 10/23/23 20:07 Completed TROPONIN Q4H Lab 10/23/23 20:04 Completed TROPONIN Q4H Lab 10/24/23 00:00 Ordered TROPONIN Q4H Lab 10/24/23 04:00 Ordered UA W/RFX UR CULTURE Stat Lab 10/23/23 20:20 Completed Medication Summary Discontinued Medications Generic Name Dose Route Start Last Admin Trade Name Jonathan PRN Reason Stop Dose Admin Sodium Chloride 500 mls @ 500 mls/hr 10/23/23 19:50 10/23/23 21:41 Sodium Chloride 0.9% 500 Ml IV 10/23/23 20:49 Infused .Q1H ONE Infusion Sodium Chloride Confirm 10/23/23 19:59 Sodium Chloride 0.9% 500 Ml Administered 10/23/23 20:00 Dose 500 mls @ ud IV .STK-MED ONE Levofloxacin 500 mg 10/23/23 21:48 10/23/23 22:02 Levofloxacin 250 Mg Tab PO 10/23/23 21:49 500 mg STAT ONE Administration Levofloxacin Confirm 10/23/23 22:01 Levofloxacin 250 Mg Tab Administered 10/23/23 22:02 Dose 500 mg .ROUTE .STK-MED ONE Lab/Rad Data: Laboratory Result Diagrams 10/23/23 20:04 10/23/23 20:04 Laboratory Results 10/23/23 10/23/23 10/23/23 Range/Units 20:20 20:07 20:04 WBC (4.23-9.07) x10^3/uL RBC (4.63-6.08) x10^6/uL Hgb (13.7-17.5) g/dL Hct (40.1-51.0) % MCV (79.0-92.2) fL MCH (25.7-32.2) pg MCHC (32.3-36.5) g/dL RDW (11.6-14.4) % Plt Count (163-337) x10^3/uL MPV (9.4-12.4) fL Gran % (34.0-67.9) % Immature Gran % (Auto) (0.001-0.429) % Nucleat RBC Rel Count (0.00-0.2) % Eos # (Auto) (0.04-0.54) x10^3/uL Immature Gran # (Auto) (0.001-0.031) x10^3u/L Absolute Lymphs (auto) (1.32-3.57) x10^3/uL Absolute Monos (auto) (0.30-0.82) x10^3/uL Absolute Nucleated RBC (0.00-0.012) x10^3u/L Lymphocytes % (21.8-53.1) % Monocytes % (5.3-12.2) % Eosinophils % (0.8-7.0) % Basophils % (0.2-1.2) % Absolute Granulocytes (1.78-5.38) x10^3/uL Basophils # (0.01-0.08) x10^3/uL Sodium (135-145) mmol/L Potassium (3.5-5.1) mmol/L Chloride (98-107) mmol/L Carbon Dioxide (22-30) mmol/L Anion Gap (5-15) MEQ/L BUN (9-20) mg/dL Creatinine (0.66-1.25) mg/dL Estimated GFR ML/MIN Glucose (74-106) mg/dL Lactic Acid 1.6 (0.4-2.0) Calcium (8.4-10.2) mg/dL Total Bilirubin (0.2-1.3) mg/dL AST (17-59) U/L ALT (0-50) U/L Alkaline Phosphatase (38-126) U/L Troponin I < 0.012 (0.000-0.033) ng/mL Serum Total Protein (6.3-8.2) g/dL Albumin (3.5-5.0) g/dL Lipase (23-300) U/L Urine Color Yellow (Yellow) Urine Appearance Turbid A (Clear) Urine pH 8.5 A (4.6-8.0) Ur Specific [place] 1.015 (1.005-1.030) Urine Protein 30 (Negative) Urine Glucose (UA) Negative (Negative) mg/dL Urine Ketones Negative (Negative) Urine Blood Negative (Negative) Urine Nitrite Positive A (Negative) Urine Bilirubin Negative (Negative) Urine Urobilinogen 0.2 (0.2) mg/dL Ur Leukocyte Esterase Small A (Negative) U Hyaline Cast (Auto) 3-5 A (0-2) /LPF Urine Microscopic RBC 0-2 (0-5) /HPF Urine Microscopic WBC 11-20 A (0-5) /HPF Ur Epithelial Cells None Seen (None Seen) /HPF Urine Bacteria Many A (None Seen) /HPF Urine Culture Reflexed YES (NO) 10/23/23 10/23/23 Range/Units 20:04 20:04 WBC 6.2 (4.23-9.07) x10^3/uL RBC 4.37 L (4.63-6.08) x10^6/uL Hgb 12.0 L (13.7-17.5) g/dL Hct 38.5 L (40.1-51.0) % MCV 88.1 (79.0-92.2) fL MCH 27.5 (25.7-32.2) pg MCHC 31.2 L (32.3-36.5) g/dL RDW 15.8 H (11.6-14.4) % Plt Count 264 (163-337) x10^3/uL MPV 12.3 (9.4-12.4) fL Gran % 51.0 (34.0-67.9) % Immature Gran % (Auto) 0.3 (0.001-0.429) % Nucleat RBC Rel Count 0.0 (0.00-0.2) % Eos # (Auto) 0.34 (0.04-0.54) x10^3/uL Immature Gran # (Auto) 0.02 (0.001-0.031) x10^3u/L Absolute Lymphs (auto) 1.89 (1.32-3.57) x10^3/uL Absolute Monos (auto) 0.73 (0.30-0.82) x10^3/uL Absolute Nucleated RBC 0.00 (0.00-0.012) x10^3u/L Lymphocytes % 30.6 (21.8-53.1) % Monocytes % 11.8 (5.3-12.2) % Eosinophils % 5.5 (0.8-7.0) % Basophils % 0.8 (0.2-1.2) % Absolute Granulocytes 3.14 (1.78-5.38) x10^3/uL Basophils # 0.05 (0.01-0.08) x10^3/uL Sodium 140 (135-145) mmol/L Potassium 4.2 (3.5-5.1) mmol/L Chloride 111 H (98-107) mmol/L Carbon Dioxide 19 L (22-30) mmol/L Anion Gap 14.3 (5-15) MEQ/L BUN 24 H (9-20) mg/dL Creatinine 1.00 (0.66-1.25) mg/dL Estimated GFR 87.8 ML/MIN Glucose 120 H (74-106) mg/dL Lactic Acid (0.4-2.0) Calcium 9.2 (8.4-10.2) mg/dL Total Bilirubin 0.30 (0.2-1.3) mg/dL AST 24 (17-59) U/L ALT 19 (0-50) U/L Alkaline Phosphatase 91 (38-126) U/L Troponin I (0.000-0.033) ng/mL Serum Total Protein 6.8 (6.3-8.2) g/dL Albumin 3.7 (3.5-5.0) g/dL Lipase 121 (23-300) U/L Urine Color (Yellow) Urine Appearance (Clear) Urine pH (4.6-8.0) Ur Specific [place] (1.005-1.030) Urine Protein (Negative) Urine Glucose (UA) (Negative) mg/dL Urine Ketones (Negative) Urine Blood (Negative) Urine Nitrite (Negative) Urine Bilirubin (Negative) Urine Urobilinogen (0.2) mg/dL Ur Leukocyte Esterase (Negative) U Hyaline Cast (Auto) (0-2) /LPF Urine Microscopic RBC (0-5) /HPF Urine Microscopic WBC (0-5) /HPF Ur Epithelial Cells (None Seen) /HPF Urine Bacteria (None Seen) /HPF Urine Culture Reflexed (NO) - Progress Progress: improved Progress Note: 10/23/23 22:12 58-year-old with history of cerebral palsy, partial colectomy with permanent colostomy and urostomy is evaluated for generalized weakness fatigue tiredness. Patient has no abdominal pain, no vomiting or diarrhea. No chest pain or diffi culty breathing. He is afebrile. Given gentle hydration with a 500 cc fluid bolus, feeling much better on reevaluation. Workup showed normal white count, fairly unremarkable chemistries and normal lactate and troponin. Chest x-ray negative for any acute cardiopulmonary findings reviewed by me, official report is pending. Patient does not have any peritoneal signs on initial and repeated evaluation. Does have UTI. I have started him on Levaquin based on patient's previous urine cultures with positive E. coli, Klebsiella . I believe patient needs to see his urologist and would benefit with prophylactic antibiotics. I have discussed with patient in detail about signs symptoms of worsening needing return to ER which she seems understanding. Stable for discharge. Counseled pt/family regarding: lab results, diagnosis, need for follow-up, rad results Medical Desision Making - Independent Historian Additional History obtained from: Supervisor Bindery/EMT - External Record(s) Reviewed Records reviewed as a part of evaluation & management: Inpatient - Diagnostic Testing Diagnostic test were ordered, analyzed, and reviewed by me: Yes Radiological Interpretation: Interpreted by me, Reviewed by me - Risk of complications The pt has a mod risk of morbidity or mortality based on: Need for prescription drug management - Departure Departure Disposition: Home Clinical Impression: Acute UTI (urinary tract infection), Generalized weakness Condition: Stable Critical Care Time: No Referrals: MARQUES GUALLPA MD [Primary Care Provider] - Follow up with PCP 1 day Instructions: Urinary Tract Infection, Adult (DC) Additional Instructions: Take Tylenol as needed. Drink plenty of fluids to keep yourself well-hydrated. Follow-up with your primary care physician for reevaluation and may need referral for urology to be placed on prophylactic antibiotics for recurrent UTIs. Return to ER for worsening weakness, intractable vomiting, abdominal pain, fever chills etc. Prescriptions: Levofloxacin [Levaquin 500 MG Tablet] 500 mg PO DAILY #7 tablet
[2023-10-23 20:34] VITALS: PULSE 68
[2023-10-23 20:36] LABS: Absolute Neutrophil Ct (ANC) 3.14 x10^3/uL (1.78-5.38); BASOPHIL % 0.8 % (0.2-1.2); Basophil (Absolute #) 0.05 x10^3/uL (0.01-0.08); Eosinophil % 5.5 % (0.8-7.0); Eosinophil (Absolute #) 0.34 x10^3/uL (0.04-0.54); Hematocrit 38.5 % (40.1-51.0); IMMATURE GRAN # 0.02 x10^3u/L (0.001-0.031); IMMATURE GRAN % 0.3 % (0.001-0.429); Lymphocyte (Absolute #) 1.89 x10^3/uL (1.32-3.57); Lymphocytes % 30.6 % (21.8-53.1); Mean Cell Volume 88.1 fL (79.0-92.2); Mean Corpuscular Hemoglobin 27.5 pg (25.7-32.2); Mean Corpuscular Hgb Concent. 31.2 g/dL (32.3-36.5); Mean Platelet Volume 12.3 fL (9.4-12.4); Monocyte (Absolute #) 0.73 x10^3/uL (0.30-0.82); Monocytes % 11.8 % (5.3-12.2); Platelet Count 264 x10^3/uL (163-337); Red Blood Count 4.37 x10^6/uL (4.63-6.08); Red Cell Distribution Width 15.8 % (11.6-14.4); White Blood Count 6.2 x10^3/uL (4.23-9.07)
[2023-10-23 20:49] LABS: Appearance Turbid (Clear); Bacteria Many /HPF (None Seen); Bilirubin Negative (Negative); Blood Negative (Negative); Epithelial Cells None Seen /HPF (None Seen); Glucose, Urine Negative (Negative); Ketones Negative (Negative); Leukocyte Esterase Small (Negative); Nitrite Positive (Negative); Ph 8.5 (4.6-8.0); Protein,Urine Dip 30 (Negative); RBC 0-2 /HPF (0-5); Specific Gravity 1.015 (1.005-1.030); Urobilinogen 0.2 mg/dL (0.2)
[2023-10-23 20:50] LABS: ADD URINE CULTURE? YES (NO)
[2023-10-23 20:52] LABS: ALBUMIN 3.7 g/dL (3.5-5.0); ANION GAP 14.3 MEQ/L (5-15); BILIRUBIN,TOTAL 0.3 mg/dL (0.2-1.3); Calcium 9.2 mg/dL (8.4-10.2); EST GLOMERULAR FILTRATION RATE 87.8 ML/MIN; Potassium 4.2 mmol/L (3.5-5.1); Total Protein 6.8 g/dL (6.3-8.2)
[2023-10-23] MEDS ORDERED: Levofloxacin 250MG Tablet ONE (22:01)
[2023-10-23] MEDS: Levofloxacin 250MG Tablet PO ONE (22:02)
[2023-10-23 22:16] VITALS: O2SAT 97
[2023-10-23 22:24] VITALS: BP 155/99
--- NOTE | 2023-10-24 09:11 | XRAY ---
Indication: Weakness. Comparison: January 17, 2020 Portable chest again demonstrates normal heart and lungs. Bony thorax intact. No new/acute findings.
== END 2023-10-23 22:40 | disposition home or self-care (01) ==
LOC: ED 18:48
DX: N39.0 Urinary tract infection, site not specified (principal); R53.1 Weakness; R53.83 Other fatigue; G80.9 Cerebral palsy, unspecified; Z79.899 Other long term (current) drug therapy; Z59.82 Transportation insecurity
CPT/HCPCS: 36000; 36415; 71045; 80053; 81001; 83605; 83690; 84484; 85025; 87040; 87077; 87086; 87186; 99284; A9270-GY

== ENCOUNTER 2023-11-03 18:32 | Emergency (ER) | payer MEDICARE ==
--- NOTE | 2023-11-03 18:35 | ERPHSYRPT ---
- History of Present Illness Time Seen by Provider: 11/03/23 18:35 Source: patient Exam Limitations: no limitations Physician History: This is a 58-year-old white male patient who has history of paralysis, myocardial infarction, arrhythmias, gastroesophageal reflux disease, esophageal disorder anxiety and depression. Patient was at his primary care provider's office today and had a in office urinalysis performed (Dr. Guallpa in [place]). Patient was told to come to the emergency department today to get a dose of intravenous antibiotics so they could get that started. Apparently, they will be starting outpatient intravenous IV antibiotic therapy beginning Mo November 06, 2023. This is per patient report. Patient does not sense any abdominal pain or pressure. Although he does state in the last couple days he has had some shaking chills. Timing/Duration: today Activites at Onset: none Severity of Pain-Max: none Severity of Pain-Current: none Allergies/Adverse Reactions: diazepam [From Valium] Allergy (Verified 08/31/23 13:49) Penicillins Allergy (Verified 08/31/23 13:49) Home Medications: Omeprazole 40 mg PO DAILY 01/17/20 [History] Escitalopram Oxalate [Lexapro] 10 mg PO DAILY 04/11/23 [History] Spironolactone 25 mg [Aldactone 25 MG] 25 mg PO DAILY 08/31/23 [History] Hx Tetanus, Diphtheria Vaccination/Date Given: Yes Hx Influenza Vaccination/Date Given: No Hx Pneumococcal Vaccination/Date Given: No Travel Risk - International Travel Have you traveled outside of the country in past 3 weeks: No - Emerging Infectious Disease Are you exhibiting symptoms associated with any current EIDs: No - Past Medical History Pertinent Past Medical History: Yes Neurological History: Paralysis ENT History: Glaucoma Cardiac History: Arrhythmia, Myocardial Infarction (ME) Respiratory History: No Pertinent History Endocrine Medical History: No Pertinent History Musculoskeletal History: Arthritis GI Medical History: Esophageal Disorder, GERD, Ulcer History: Other Psycho-Social History: Anxiety, Depression, Panic Disorder Male Reproductive Disorders: Prostate Problems Other Medical History: cerabral palsy, kidney failure, 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 (50 corrective surgeries) Significant Family History: no pertinent family hx - Social History Smoking Status: Never smoker Exposure to second hand smoke: No Drug Use: none Patient Lives Alone: Yes - Social Determinants of Health Will the patient participate in the screening: Yes Do you worry about a steady place to live?: No In the past 12 months,have you had to go without utilities?: No Transportation Issues: Yes Has anyone in your support network made you feel unsafe?: No Have you or anyone in your house had to go without enough: No Comment: wanting help finding transporation - Review of Systems Constitutional: Chills, No Fever Eyes: No Symptoms Ears, Nose, & Throat: No Symptoms Respiratory: No Symptoms Cardiac: No Symptoms Abdominal/Gastrointestinal: No Symptoms Genitourinary Symptoms: No Symptoms Musculoskeletal: No Symptoms Skin: No Symptoms Neurological: No Symptoms Psychological: No Symptoms Endocrine: No Symptoms Hematologic/Lymphatic: No Symptoms Immunological/Allergic: No Symptoms All Other Systems: Reviewed and Negative - Nursing Vital Signs Nursing Vital Signs: Initial Vital Signs Temperature 98 F 11/03/23 18:37 Pulse Rate 72 11/03/23 18:37 Respiratory Rate 20 11/03/23 18:37 Blood Pressure 140/93 11/03/23 18:37 O2 Sat by Pulse Oximetry 96 11/03/23 18:37 Pain Scale Pain Intensity 0 - Physical Exam General Appearance: no apparent distress, alert Eye Exam: PERRL/EOMI, eyes nml inspection Ears, Nose, Throat Exam: normal ENT inspection, moist mucous membranes Neck Exam: normal inspection, non-tender, supple, full range of motion Respiratory Exam: normal breath sounds, lungs clear, airway intact, No chest tenderness, No respiratory distress Cardiovascular Exam: regular rate/rhythm, normal heart sounds, normal peripheral pulses Gastrointestinal/Abdomen Exam: soft, normal bowel sounds, No tenderness Rectal Exam: not done Back Exam: normal inspection, normal range of motion, No CVA tenderness, No vertebral tenderness Extremity Exam: normal inspection, pelvis stable Neurologic Exam: alert, oriented x 3, cooperative, normal mood/affect Skin Exam: normal color, warm, dry Lymphatic Exam: No adenopathy SpO2 Interpretation: normal O2 Delivery: Room Air - Course Nursing assessment & vital signs reviewed: Yes Ordered Tests: Active Orders 24 hr Category Date Time Status CULTURE,URINE Stat Lab 11/03/23 19:06 Received UA W/RFX UR CULTURE Stat Lab 11/03/23 19:06 Completed Lab/Rad Data: Laboratory Results 11/03/23 Range/Units 19:06 Urine Color Yellow (Yellow) Urine Appearance Clear (Clear) Urine pH 6.5 (4.6-8.0) Ur Specific [place] 1.015 (1.005-1.030) Urine Protein 30 (Negative) Urine Glucose (UA) Negative (Negative) mg/dL Urine Ketones Negative (Negative) Urine Blood Negative (Negative) Urine Nitrite Positive A (Negative) Urine Bilirubin Negative (Negative) Urine Urobilinogen 0.2 (0.2) mg/dL Ur Leukocyte Esterase Moderate A (Negative) U Hyaline Cast (Auto) 6-10 A (0-2) /LPF Urine Microscopic RBC 11-20 A (0-5) /HPF Urine Microscopic WBC 51-100 A (0-5) /HPF Ur Epithelial Cells None Seen (None Seen) /HPF Urine Bacteria Many A (None Seen) /HPF Urine Culture Reflexed YES (NO) - Progress Progress: unchanged Progress Note: 11/03/23 19:10 My medical decision making and the assignment of low complexity to this patient's medical issue today is based on review of the patient's past medical history, review of the patient's medication list, review patient drug allergy list, history present illness and physical findings on examination. The workup in this patient includes, initially, urinalysis. If there is a urinary tract infection, we will provide the patient with a dose of Rocephin intravenously and an oral antibiotic as well if the patient can tolerate oral intake. Will also provide him a prescription for outpatient antibiotic that he can take until the clinic can arrange outpatient intravenous antibiotics. 11/03/23 20:06 I interpreted the patient's laboratory data results. Patient has urinary tract infection as expected. The patient most recently has been on Levaquin. I looked back at other emergency room visits and he seems to be placed on Levaquin often. We will provide him with Rocephin 1 g intravenously today plus an oral tablet of Bactrim DS. We will then remotely send a prescription of cefdinir to his pharmacy. 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 Take the antibiotics as prescribed until you start your outpatient intravenous antibiotic therapy. Take your other medications as prescribed. Prescriptions: Cefdinir 300 mg PO BID #14 cap
[2023-11-03 18:40] VITALS: RESP 20; TEMP 98
[2023-11-03 19:20] LABS: Appearance Clear (Clear); Bilirubin Negative (Negative); Blood Negative (Negative); Glucose, Urine Negative (Negative); Ketones Negative (Negative); Leukocyte Esterase Moderate (Negative); Nitrite Positive (Negative); Ph 6.5 (4.6-8.0); Protein,Urine Dip 30 (Negative); Specific Gravity 1.015 (1.005-1.030); Urobilinogen 0.2 mg/dL (0.2)
[2023-11-03 19:58] LABS: Bacteria Many /HPF (None Seen); Epithelial Cells None Seen /HPF (None Seen); WBC 51-100 /HPF (0-5)
[2023-11-03 19:59] LABS: ADD URINE CULTURE? YES (NO)
[2023-11-03] MEDS ORDERED: BACTRIM DS TABLET PO ONE (20:09)
[2023-11-03] MEDS ORDERED: ROCEPHIN 1 GM / 100 ML NaCl 1 GM/100 ML IVPB IV ONE (20:09)
[2023-11-03] MEDS: BACTRIM DS TABLET PO ONE (20:12)
[2023-11-03] MEDS: ROCEPHIN 1 GM / 100 ML NaCl 1 GM/100 ML IVPB IV ONE (20:13)
[2023-11-03 20:19] VITALS: BP 144/84; PULSE 66; O2SAT 96
== END 2023-11-03 20:51 | disposition home or self-care (01) ==
LOC: ED 18:32
DX: N39.0 Urinary tract infection, site not specified (principal); Z79.899 Other long term (current) drug therapy; Z59.82 Transportation insecurity
CPT/HCPCS: 36000; 81001; 87077; 87086; 87186; 96365; 99283; J0696; A9270-GY

== ENCOUNTER 2023-11-22 16:58 | Emergency (ER) | payer MEDICARE ==
[2023-11-22 17:08] VITALS: TEMP 98.6
--- NOTE | 2023-11-22 17:25 | ERPHSYRPT ---
- History of Present Illness Time Seen by Provider: 11/22/23 17:03 Source: patient Patient Subjective Stated Complaint: Pt states "I have a woodward infection again.". Rn Reji from Dr. Chad BERG called and advised that pt had a PICC line placed on the 18 and his home health care RN was supposed to administer and DC the antibiotic but she only came on the first day and hooked him up and pt non med ical home advisor was accessing and dc the antibiotic in the picc line. She also advised that the home health aide called today and told them he was having UTI symptoms. Triage Nursing Assessment: Pt presented alert and oriented X 3, skin pwd. Pt able to speak in clear full sentences. PT resting comfortably on the bed. PT in no apparent respiratory distress. PT has picc line in left upper bicep, bicep site not red not swollen, no other issues noted to limb. PT in no apparent distress. Physician History: Pt states he has had generalized weakness and chills for the past 3 days; denies chest pain, shortness of air, abdominal pain, fever, cough, nausea, vomiting. Allergies/Adverse Reactions: diazepam [From Valium] Allergy (Intermediate, Verified 11/09/23 11:23) states "turns me real violent" Penicillins Allergy (Verified 11/09/23 11:23) states "get violent" Home Medications: Omeprazole 40 mg PO DAILY 01/17/20 [History] Escitalopram Oxalate [Lexapro] 10 mg PO DAILY 04/11/23 [History] Spironolactone 25 mg [Aldactone 25 MG] 25 mg PO DAILY 08/31/23 [History] Hx Tetanus, Diphtheria Vaccination/Date Given: No Hx Influenza Vaccination/Date Given: No Hx Pneumococcal Vaccination/Date Given: No Travel Risk - International Travel Have you traveled outside of the country in past 3 weeks: No - Emerging Infectious Disease Are you exhibiting symptoms associated with any current EIDs: No - Review of Systems Constitutional: Chills, Fatigue, No Fever Respiratory: No Cough Abdominal/Gastrointestinal: No Abdominal Pain, No Nausea, No Vomiting Neurological: Other (generalized weakness), No Headache - Past Medical History Pertinent Past Medical History: Yes Neurological History: Paralysis ENT History: Glaucoma Cardiac History: Arrhythmia, Myocardial Infarction (MD) Respiratory History: No Pertinent History Endocrine Medical History: No Pertinent History Musculoskeletal History: Arthritis GI Medical History: Esophageal Disorder, GERD, Ulcer History: Other Psycho-Social History: Anxiety, Depression, Panic Disorder Male Reproductive Disorders: Prostate Problems Other Medical History: cerabral palsy, kidney failure, 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 (50 corrective surgeries) Significant Family History: no pertinent family hx - Social History Smoking Status: Never smoker Exposure to second hand smoke: No Drug Use: none Patient Lives Alone: Yes - Social Determinants of Health Will the patient participate in the screening: Yes Do you worry about a steady place to live?: No Do you have any problems with any of the following?: No known problems In the past 12 months,have you had to go without utilities?: No Transportation Issues: Yes Has anyone in your support network made you feel unsafe?: No Have you or anyone in your house had to go without enough: No Comment: wanting help finding transporation - Nursing Vital Signs Nursing Vital Signs: Initial Vital Signs Temperature 98.6 F 11/22/23 16:59 Pulse Rate 71 11/22/23 16:59 Respiratory Rate 20 11/22/23 16:59 Blood Pressure 123/74 11/22/23 16:59 O2 Sat by Pulse Oximetry 96 11/22/23 16:59 Pain Scale Pain Intensity 9 - Physical Exam General Appearance: alert Eye Exam: eyes nml inspection Ears, Nose, Throat Exam: TMs normal, dry mucous membranes, pharyngeal erythema (mild) Neck Exam: normal inspection Respiratory Exam: crackles/rales (minimal over left posterior base) Cardiovascular Exam: normal heart sounds Gastrointestinal/Abdomen Exam: normal bowel sounds, other (colostomy & ileostomy bag on left side ) Back Exam: normal inspection Extremity Exam: No normal range of motion (Pt had cerebral palsey at and has limited rom of right upper and both lower extremities.) Neurologic Exam: alert, cooperative Skin Exam: warm, dry SpO2 Interpretation: normal SpO2: 96 O2 Delivery: Room Air - Course Nursing assessment & vital signs reviewed: Yes EKG Interpreted by Me: RATE (59), Sinus José Miguel, NORMAL AXIS, Other (QTc = 416) - Radiology Exams Chest X-ray Interpretation: Interpreted by me, No Pneumonia Ordered Tests: Active Orders 24 hr Category Date Time Status EKG-ER Only STAT Care 11/22/23 17:26 Active IV Insertion STAT Care 11/22/23 17:22 Active CHEST 1 VIEW (PORTABLE) Stat Exams 11/22/23 17:27 Taken AMYLASE Stat Lab 11/22/23 17:41 Completed BLOOD CULTURE Stat Lab 11/22/23 17:30 Received BMP Stat Lab 11/22/23 17:41 Completed CBC W DIFF Stat Lab 11/22/23 17:41 Completed CULTURE,URINE Stat Lab 11/22/23 18:32 Received Hepatic Function Panel Stat Lab 11/22/23 17:41 Completed LIPASE Stat Lab 11/22/23 17:41 Completed Lactic Acid Stat Lab 11/22/23 18:05 Completed MAGNESIUM Stat Lab 11/22/23 17:41 Completed TROPONIN Q4H Lab 11/22/23 17:41 Completed TROPONIN Q4H Lab 11/22/23 21:30 Ordered TROPONIN Q4H Lab 11/23/23 01:30 Ordered UA W/RFX UR CULTURE Stat Lab 11/22/23 18:32 Completed Medication Summary Generic Name Dose Route Start Last Admin Trade Name Freq PRN Reason Stop Dose Admin Sodium Chloride 1,000 mls @ 999 mls/hr 11/22/23 18:34 11/22/23 18:59 Sodium Chloride 0.9% 1000 Ml IV 11/22/23 19:34 999 mls/hr .Q1H1M STA Administration Nitrofurantoin Macrocrystals 100 mg 11/22/23 19:29 Nitrofurantoin Macro 100 Mg Capsule PO 11/22/23 19:30 STAT ONE Discontinued Medications Generic Name Dose Route Start Last Admin Trade Name Freq PRN Reason Stop Dose Admin Sodium Chloride 1,000 mls @ 999 mls/hr 11/22/23 17:22 11/22/23 18:50 Sodium Chloride 0.9% 1000 Ml IV 11/22/23 18:22 Infused .Q1H1M STA Infusion Sodium Chloride Confirm 11/22/23 17:31 Sodium Chloride 0.9% 1000 Ml Administered 11/22/23 17:32 Dose 1,000 mls @ ud .ROUTE .[facility] ONE Sodium Chloride Confirm 11/22/23 18:57 Sodium Chloride 0.9% 1000 Ml Administered 11/22/23 18:58 Dose 1,000 mls @ .ROUTE .[facility] ONE Lab/Rad Data: Laboratory Result Diagrams 11/22/23 17:41 11/22/23 17:41 Laboratory Results 11/22/23 11/22/23 11/22/23 Range/Units 18:32 18:05 17:41 WBC (4.23-9.07) x10^3/uL RBC (4.63-6.08) x10^6/uL Hgb (13.7-17.5) g/dL Hct (40.1-51.0) % MCV (79.0-92.2) fL MCH (25.7-32.2) pg MCHC (32.3-36.5) g/dL RDW (11.6-14.4) % Plt Count (163-337) x10^3/uL MPV (9.4-12.4) fL Gran % (34.0-67.9) % Immature Gran % (Auto) (0.001-0.429) % Nucleat RBC Rel Count (0.00-0.2) % Eos # (Auto) (0.04-0.54) x10^3/uL Immature Gran # (Auto) (0.001-0.031) x10^3u/L Absolute Lymphs (auto) (1.32-3.57) x10^3/uL Absolute Monos (auto) (0.30-0.82) x10^3/uL Absolute Nucleated RBC (0.00-0.012) x10^3u/L Lymphocytes % (21.8-53.1) % Monocytes % (5.3-12.2) % Eosinophils % (0.8-7.0) % Basophils % (0.2-1.2) % Absolute Granulocytes (1.78-5.38) x10^3/uL Basophils # (0.01-0.08) x10^3/uL Sodium (135-145) mmol/L Potassium (3.5-5.1) mmol/L Chloride (98-107) mmol/L Carbon Dioxide (22-30) mmol/L Anion Gap (5-15) MEQ/L BUN (9-20) mg/dL Creatinine (0.66-1.25) mg/dL Estimated GFR ML/MIN Glucose (74-106) mg/dL Lactic Acid 1.2 (0.4-2.0) Calcium (8.4-10.2) mg/dL Magnesium (1.6-2.3) mg/dL Total Bilirubin (0.2-1.3) mg/dL Direct Bilirubin (0.0-0.4) mg/dL AST (17-59) U/L ALT (0-50) U/L Alkaline Phosphatase (38-126) U/L Troponin I < 0.012 (0.000-0.033) ng/mL Serum Total Protein (6.3-8.2) g/dL Albumin (3.5-5.0) g/dL Amylase (30-110) U/L Lipase (23-300) U/L Urine Color Yellow (Yellow) Urine Appearance Cloudy A (Clear) Urine pH 6.5 (4.6-8.0) Ur Specific [place] 1.015 (1.005-1.030) Urine Protein 30 (Negative) Urine Glucose (UA) Negative (Negative) mg/dL Urine Ketones Negative (Negative) Urine Blood Negative (Negative) Urine Nitrite Negative (Negative) Urine Bilirubin Negative (Negative) Urine Urobilinogen 0.2 (0.2) mg/dL Ur Leukocyte Esterase Negative (Negative) U Hyaline Cast (Auto) 3-5 A (0-2) /LPF Urine Microscopic RBC 0-2 (0-5) /HPF Urine Microscopic WBC 11-20 A (0-5) /HPF Ur Epithelial Cells Rare (None Seen) /HPF Urine Bacteria Rare A (None Seen) /HPF Urine Culture Reflexed YES (NO) 11/22/23 11/22/23 Range/Units 17:41 17:41 WBC 7.5 (4.23-9.07) x10^3/uL RBC 4.48 L (4.63-6.08) x10^6/uL Hgb 12.7 L (13.7-17.5) g/dL Hct 39.8 L (40.1-51.0) % MCV 88.8 (79.0-92.2) fL MCH 28.3 (25.7-32.2) pg MCHC 31.9 L (32.3-36.5) g/dL RDW 14.5 H (11.6-14.4) % Plt Count 193 (163-337) x10^3/uL MPV 12.3 (9.4-12.4) fL Gran % 52.9 (34.0-67.9) % Immature Gran % (Auto) 0.7 H (0.001-0.429) % Nucleat RBC Rel Count 0.0 (0.00-0.2) % Eos # (Auto) 0.45 (0.04-0.54) x10^3/uL Immature Gran # (Auto) 0.05 H (0.001-0.031) x10^3u/L Absolute Lymphs (auto) 2.20 (1.32-3.57) x10^3/uL Absolute Monos (auto) 0.78 (0.30-0.82) x10^3/uL Absolute Nucleated RBC 0.00 (0.00-0.012) x10^3u/L Lymphocytes % 29.3 (21.8-53.1) % Monocytes % 10.4 (5.3-12.2) % Eosinophils % 6.0 (0.8-7.0) % Basophils % 0.7 (0.2-1.2) % Absolute Granulocytes 3.99 (1.78-5.38) x10^3/uL Basophils # 0.05 (0.01-0.08) x10^3/uL Sodium 138 (135-145) mmol/L Potassium 4.4 (3.5-5.1) mmol/L Chloride 107 (98-107) mmol/L Carbon Dioxide 23 (22-30) mmol/L Anion Gap 13.0 (5-15) MEQ/L BUN 28 H (9-20) mg/dL Creatinine 0.98 (0.66-1.25) mg/dL Estimated GFR 89.9 ML/MIN Glucose 100 (74-106) mg/dL Lactic Acid (0.4-2.0) Calcium 9.1 (8.4-10.2) mg/dL Magnesium 2.0 (1.6-2.3) mg/dL Total Bilirubin 0.20 (0.2-1.3) mg/dL Direct Bilirubin 0.1 (0.0-0.4) mg/dL AST 25 (17-59) U/L ALT 26 (0-50) U/L Alkaline Phosphatase 91 (38-126) U/L Troponin I (0.000-0.033) ng/mL Serum Total Protein 7.4 (6.3-8.2) g/dL Albumin 4.2 (3.5-5.0) g/dL Amylase 68 (30-110) U/L Lipase 62 (23-300) U/L Urine Color (Yellow) Urine Appearance (Clear) Urine pH (4.6-8.0) Ur Specific [place] (1.005-1.030) Urine Protein (Negative) Urine Glucose (UA) (Negative) mg/dL Urine Ketones (Negative) Urine Blood (Negative) Urine Nitrite (Negative) Urine Bilirubin (Negative) Urine Urobilinogen (0.2) mg/dL Ur Leukocyte Esterase (Negative) U Hyaline Cast (Auto) (0-2) /LPF Urine Microscopic RBC (0-5) /HPF Urine Microscopic WBC (0-5) /HPF Ur Epithelial Cells (None Seen) /HPF Urine Bacteria (None Seen) /HPF Urine Culture Reflexed (NO) - Progress Progress: improved Counseled pt/family regarding: lab results, diagnosis, need for follow-up, rad results Medical Desision Making - Diagnostic Testing Diagnostic test were ordered, analyzed, and reviewed by me: Yes Radiological Interpretation: Interpreted by me - Departure Departure Disposition: Home Clinical Impression: Dehydration, mild, UTI (urinary tract infection) Condition: Stable Critical Care Time: No Referrals: MARQUES GUALLPA MD [Primary Care Provider] - Follow up/PCP as directed Instructions: Urinary Tract Infection, Adult (DC), Dehydration, Adult ED Additional Instructions: Follow up with private doctor tomorrow. Prescriptions: Nitrofurantoin Macro 100 mg [Macrobid 100MG Capsule] 100 mg PO BID #14 cap
[2023-11-22] MEDS ORDERED: Sodium Chloride 0.9% 1000 ML 1,000 ML ONE ×2 (17:31→18:57)
[2023-11-22] MEDS: Sodium Chloride 0.9% 1000 ML 1,000 ML IV STA ×2 (17:33→18:59)
[2023-11-22 18:00] LABS: Absolute Neutrophil Ct (ANC) 3.99 x10^3/uL (1.78-5.38); BASOPHIL % 0.7 % (0.2-1.2); Basophil (Absolute #) 0.05 x10^3/uL (0.01-0.08); Eosinophil (Absolute #) 0.45 x10^3/uL (0.04-0.54); Hematocrit 39.8 % (40.1-51.0); Hemoglobin 12.7 g/dL (13.7-17.5); IMMATURE GRAN # 0.05 x10^3u/L (0.001-0.031); IMMATURE GRAN % 0.7 % (0.001-0.429); Lymphocytes % 29.3 % (21.8-53.1); Mean Cell Volume 88.8 fL (79.0-92.2); Mean Corpuscular Hemoglobin 28.3 pg (25.7-32.2); Mean Corpuscular Hgb Concent. 31.9 g/dL (32.3-36.5); Mean Platelet Volume 12.3 fL (9.4-12.4); Monocyte (Absolute #) 0.78 x10^3/uL (0.30-0.82); Monocytes % 10.4 % (5.3-12.2); Neutrophil % 52.9 % (34.0-67.9); Platelet Count 193 x10^3/uL (163-337); Red Blood Count 4.48 x10^6/uL (4.63-6.08); Red Cell Distribution Width 14.5 % (11.6-14.4); White Blood Count 7.5 x10^3/uL (4.23-9.07)
[2023-11-22 18:14] LABS: ALBUMIN 4.2 g/dL (3.5-5.0); BILIRUBIN,TOTAL 0.2 mg/dL (0.2-1.3); Calcium 9.1 mg/dL (8.4-10.2); Creatinine 1 0.98 mg/dL (0.66-1.25); Direct Bilirubin 0.1 mg/dL (0.0-0.4); EST GLOMERULAR FILTRATION RATE 89.9 ML/MIN; Potassium 4.4 mmol/L (3.5-5.1); Total Protein 7.4 g/dL (6.3-8.2)
[2023-11-22 18:30] VITALS: BP 163/98; PULSE 63; RESP 18
[2023-11-22 18:39] VITALS: O2SAT 96
[2023-11-22 19:11] LABS: ADD URINE CULTURE? YES (NO); Appearance Cloudy (Clear); Bacteria Rare /HPF (None Seen); Bilirubin Negative (Negative); Blood Negative (Negative); Epithelial Cells Rare /HPF (None Seen); Glucose, Urine Negative (Negative); Ketones Negative (Negative); Leukocyte Esterase Negative (Negative); Nitrite Negative (Negative); Ph 6.5 (4.6-8.0); Protein,Urine Dip 30 (Negative); RBC 0-2 /HPF (0-5); Specific Gravity 1.015 (1.005-1.030); Urobilinogen 0.2 mg/dL (0.2)
[2023-11-22] MEDS ORDERED: Macrobid 100MG Capsule ONE (19:30)
[2023-11-22] MEDS: Macrobid 100MG Capsule PO ONE (19:31)
--- NOTE | 2023-11-23 08:44 | XRAY ---
Indication: Chills and weakness. Comparison: October 23, 2023 Portable chest remains clear. Heart not enlarged for AP portable technique with new left arm PICC line tip projecting over SVC. Bony thorax intact again with osteopenia and minimal levoscoliosis. Impression: Nonacute chest with chronic features.
== END 2023-11-22 19:52 | disposition home or self-care (01) ==
LOC: ED 16:58
DX: N39.0 Urinary tract infection, site not specified (principal); E86.0 Dehydration; R53.1 Weakness; R68.83 Chills (without fever); Z79.899 Other long term (current) drug therapy; Z59.82 Transportation insecurity
CPT/HCPCS: 36000; 36415; 71045; 80048; 80076; 81001; 82150; 83605; 83690; 83735; 84484; 85025; 87040; 87077; 87086; 87186; 93005; 96360; 99284; A9270-GY

== ENCOUNTER 2024-01-23 11:36 | Emergency (ER) | payer MEDICARE ==
[2024-01-23 11:53] VITALS: TEMP 98
[2024-01-23] MEDS ORDERED: Zofran 4 MG/2 ML VIAL ONE (12:06)
[2024-01-23] MEDS: Zofran 4 MG/2 ML VIAL IV ONE (12:06)
[2024-01-23] MEDS ORDERED: Sodium Chloride 0.9% 1000 ML 1,000 ML ONE (12:06)
[2024-01-23] MEDS: Sodium Chloride 0.9% 1000 ML 1,000 ML IV SCH (12:07)
[2024-01-23 12:10] LABS: Absolute Neutrophil Ct (ANC) 6.23 x10^3/uL (1.78-5.38); BASOPHIL % 0.4 % (0.2-1.2); Basophil (Absolute #) 0.03 x10^3/uL (0.01-0.08); Eosinophil % 1.4 % (0.8-7.0); Eosinophil (Absolute #) 0.11 x10^3/uL (0.04-0.54); Hematocrit 40.7 % (40.1-51.0); Hemoglobin 13.1 g/dL (13.7-17.5); IMMATURE GRAN # 0.03 x10^3u/L (0.001-0.031); IMMATURE GRAN % 0.4 % (0.001-0.429); Lymphocyte (Absolute #) 1.16 x10^3/uL (1.32-3.57); Lymphocytes % 14.3 % (21.8-53.1); Mean Cell Volume 88.1 fL (79.0-92.2); Mean Corpuscular Hemoglobin 28.4 pg (25.7-32.2); Mean Corpuscular Hgb Concent. 32.2 g/dL (32.3-36.5); Mean Platelet Volume 12.7 fL (9.4-12.4); Monocyte (Absolute #) 0.57 x10^3/uL (0.30-0.82); Neutrophil % 76.5 % (34.0-67.9); Platelet Count 228 x10^3/uL (163-337); Red Blood Count 4.62 x10^6/uL (4.63-6.08); Red Cell Distribution Width 14.2 % (11.6-14.4); White Blood Count 8.1 x10^3/uL (4.23-9.07)
--- NOTE | 2024-01-23 12:12 | ERPHSYRPT ---
- History of Present Illness Time Seen by Provider: 01/23/24 12:13 Source: patient Exam Limitations: no limitations Patient Subjective Stated Complaint: C/O vomiting that started at 0400 today. Patient received IV contrast yesterday and states it may be a reaction to it. Triage Nursing Assessment: Arrived by ambulance. He is alert and oriented. No SOB. Skin tone normal. No active vomiting during assessment noted. urostomy and colostomy noted to left side of abdomen. Urostomy patent and draining without difficulties into cath bag. No BM in colostomy at this time. Physician History: Patient is a 58-year-old male presents to our ED via EMS for evaluation of nausea and vomiting. Patient had similar symptoms yesterday including abdominal pain. Patient went to an outside hospital, [facility] where he was thoroughly evaluated. Patient had a CT abdomen pelvis which showed no acute findings. Small nonobstructing left renal stone otherwise negative. Dr. Rodriguez personally reviewed the CT results as we obtain them from the outside hospital. Patient was ultimately diagnosed with a UTI. Patient currently on oral antibiotics. Yesterday's CT study was performed with contrast. Patient believes his nausea and vomiting was related to the contrast administration yesterday. Patient reports similar symptoms in the past after exposure to contrast dye. We have updated our allergy profile to include nausea and vomiting when exposed to contrast dye. Of note patient is debilitated. Patient had a stroke at which left him with residual hemiparesis. Additionally patient had an episode of bowel ischemia with subsequent necrosis and involvement of his bladder. Patient now has a urostomy as well as a colostomy. Patient denies pain at this time. He voices no other complaints Portions of this note were created with voice recognition technology. There may be grammatical, spelling, punctuation or sound alike errors Timing/Duration: today Severity: moderate Modifying Factors: Improves With: nothing Associated Symptoms: denies symptoms Allergies/Adverse Reactions: diazepam [From Valium] Allergy (Intermediate, Verified 01/23/24 11:39) states "turns me real violent" Penicillins Allergy (Verified 01/23/24 11:39) states "get violent" Iodinated Contrast Media Adverse Reaction (Verified 01/23/24 12:11) Nausea and Vomiting Home Medications: Escitalopram Oxalate [Lexapro] 10 mg PO DAILY 04/11/23 [History] Spironolactone 25 mg [Aldactone 25 MG] 25 mg PO DAILY 08/31/23 [History] Cyanocobalamin (Vitamin B-12) [Vitamin B-12] 1 tab PO DAILY 01/23/24 [History] levoFLOXacin [Levofloxacin] 750 mg PO DAILY 01/23/24 [History] Hx Tetanus, Diphtheria Vaccination/Date Given: No Hx Influenza Vaccination/Date Given: No Hx Pneumococcal Vaccination/Date Given: No Travel Risk - International Travel Have you traveled outside of the country in past 3 weeks: No - Emerging Infectious Disease Are you exhibiting symptoms associated with any current EIDs: Yes Symptoms: Abdominal Pain, Vomitting - Review of Systems Constitutional: No Symptoms, No Fever, No Chills Eyes: No Symptoms Ears, Nose, & Throat: No Symptoms Respiratory: No Symptoms, No Cough, No Dyspnea Cardiac: No Symptoms, No Chest Pain, No Edema, No Syncope Abdominal/Gastrointestinal: No Symptoms, No Abdominal Pain, No Nausea, No Vomiting, No Diarrhea Genitourinary Symptoms: No Symptoms, No Dysuria Musculoskeletal: No Symptoms, No Back Pain, No Neck Pain Skin: No Symptoms, No Rash Neurological: No Symptoms, No Dizziness, No Focal Weakness, No Sensory Changes Psychological: No Symptoms Endocrine: No Symptoms Hematologic/Lymphatic: No Symptoms Immunological/Allergic: No Symptoms All Other Systems: Reviewed and Negative - Past Medical History Pertinent Past Medical History: Yes Neurological History: Paralysis, Stroke ENT History: Glaucoma Cardiac History: Arrhythmia, Myocardial Infarction ([place]) Respiratory History: No Pertinent History Endocrine Medical History: No Pertinent History Musculoskeletal History: Arthritis GI Medical History: Esophageal Disorder, GERD, Ulcer History: Other Psycho-Social History: Anxiety, Depression, Panic Disorder Male Reproductive Disorders: Prostate Problems Other Medical History: cerabral palsy, kidney failure, 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 (50 corrective surgeries) Significant Family History: no pertinent family hx - Social History Smoking Status: Never smoker Exposure to second hand smoke: No Drug Use: none Patient Lives Alone: Yes - Social Determinants of Health Will the patient participate in the screening: Yes Do you worry about a steady place to live?: No Do you have any problems with any of the following?: No known problems In the past 12 months,have you had to go without utilities?: No Transportation Issues: Yes Has anyone in your support network made you feel unsafe?: No Have you or anyone in your house had to go without enough: No Comment: wanting help finding transporation - Nursing Vital Signs Nursing Vital Signs: Initial Vital Signs Temperature 98 F 01/23/24 11:37 Pulse Rate 76 01/23/24 11:37 Respiratory Rate 22 01/23/24 11:37 Blood Pressure 151/100 01/23/24 11:37 O2 Sat by Pulse Oximetry 97 01/23/24 11:37 Pain Scale Pain Intensity 2 - Physical Exam General Appearance: no apparent distress, alert Eye Exam: PERRL/EOMI, eyes nml inspection Ears, Nose, Throat Exam: normal ENT inspection, moist mucous membranes Neck Exam: normal inspection, non-tender, supple, full range of motion Respiratory Exam: normal breath sounds, lungs clear, No respiratory distress Cardiovascular Exam: regular rate/rhythm, normal heart sounds, normal peripheral pulses Gastrointestinal/Abdomen Exam: soft, normal bowel sounds, other (Intact colostomy and nephrostomy), No tenderness, No mass Back Exam: normal inspection, normal range of motion, No CVA tenderness, No vertebral tenderness Extremity Exam: normal inspection, normal range of motion, pelvis stable Neurologic Exam: alert, oriented x 3, cooperative, normal mood/affect, sensation nml, No motor deficits Skin Exam: normal color, warm, dry, No rash Lymphatic Exam: No adenopathy SpO2 Interpretation: normal SpO2: 97 O2 Delivery: Room Air - Course Nursing assessment & vital signs reviewed: Yes Ordered Tests: Active Orders 24 hr Category Date Time Status Patient Svcs Mgr STAT Care 01/23/24 12:02 Completed IV Insertion STAT Care 01/23/24 12:02 Completed Pulse Oximetry (ED) STAT Care 01/23/24 12:02 Completed ACO SDOH Referral ONCE Cons 01/23/24 11:53 Completed CBC W DIFF Stat Lab 01/23/24 12:00 Completed CMP Stat Lab 01/23/24 12:00 Completed CULTURE,URINE Stat Lab 01/23/24 12:02 Results UA W/RFX UR CULTURE Stat Lab 01/23/24 12:02 Completed Medication Summary Discontinued Medications Generic Name Dose Route Start Last Admin Trade Name Jonathan PRN Reason Stop Dose Admin Sodium Chloride 1,000 mls @ 100 mls/hr 01/23/24 12:15 01/23/24 12:07 Sodium Chloride 0.9% 1000 Ml IV 02/22/24 12:14 100 mls/hr .Q10H MONA Administration Sodium Chloride Confirm 01/23/24 12:06 Sodium Chloride 0.9% 1000 Ml Administered 01/23/24 12:07 Dose 1,000 mls @ ud .ROUTE .STK-MED ONE Levofloxacin 750 mg 01/23/24 14:34 01/23/24 14:37 Levofloxacin 250 Mg Tab PO 01/23/24 14:35 750 mg STAT ONE Administration Levofloxacin Confirm 01/23/24 14:36 Levofloxacin 250 Mg Tab Administered 01/23/24 14:37 Dose 750 mg .ROUTE .STK-MED ONE Ondansetron HCl 4 mg 01/23/24 12:03 01/23/24 12:06 Ondansetron Hcl 4 Mg/2 Ml Vial IV 01/23/24 12:04 4 mg STAT ONE Administration Ondansetron HCl Confirm 01/23/24 12:06 Ondansetron Hcl 4 Mg/2 Ml Vial Administered 01/23/24 12:07 Dose 4 mg .ROUTE .STK-MED ONE Lab/Rad Data: Laboratory Result Diagrams 01/23/24 12:00 01/23/24 12:00 Laboratory Results 01/23/24 01/23/24 01/23/24 Range/Units 12:02 12:00 12:00 WBC 8.1 (4.23-9.07) x10^3/uL RBC 4.62 L (4.63-6.08) x10^6/uL Hgb 13.1 L (13.7-17.5) g/dL Hct 40.7 (40.1-51.0) % MCV 88.1 (79.0-92.2) fL MCH 28.4 (25.7-32.2) pg MCHC 32.2 L (32.3-36.5) g/dL RDW 14.2 (11.6-14.4) % Plt Count 228 (163-337) x10^3/uL MPV 12.7 H (9.4-12.4) fL Gran % 76.5 H (34.0-67.9) % Immature Gran % (Auto) 0.4 (0.001-0.429) % Nucleat RBC Rel Count 0.0 (0.00-0.2) % Eos # (Auto) 0.11 (0.04-0.54) x10^3/uL Immature Gran # (Auto) 0.03 (0.001-0.031) x10^3u/L Absolute Lymphs (auto) 1.16 L (1.32-3.57) x10^3/uL Absolute Monos (auto) 0.57 (0.30-0.82) x10^3/uL Absolute Nucleated RBC 0.00 (0.00-0.012) x10^3u/L Lymphocytes % 14.3 L (21.8-53.1) % Monocytes % 7.0 (5.3-12.2) % Eosinophils % 1.4 (0.8-7.0) % Basophils % 0.4 (0.2-1.2) % Absolute Granulocytes 6.23 H (1.78-5.38) x10^3/uL Basophils # 0.03 (0.01-0.08) x10^3/uL Sodium 139 (135-145) mmol/L Potassium 4.4 (3.5-5.1) mmol/L Chloride 109 H (98-107) mmol/L Carbon Dioxide 21 L (22-30) mmol/L Anion Gap 13.8 (5-15) MEQ/L BUN 20 (9-20) mg/dL Creatinine 1.03 (0.66-1.25) mg/dL Estimated GFR 84.7 ML/MIN Glucose 102 (74-106) mg/dL Calcium 9.6 (8.4-10.2) mg/dL Total Bilirubin 0.40 (0.2-1.3) mg/dL AST 27 (17-59) U/L ALT 34 (0-50) U/L Alkaline Phosphatase 89 (38-126) U/L Serum Total Protein 7.4 (6.3-8.2) g/dL Albumin 4.2 (3.5-5.0) g/dL Urine Color Yellow (Yellow) Urine Appearance Turbid A (Clear) Urine pH 6.5 (4.6-8.0) Ur Specific [place] 1.025 (1.005-1.030) Urine Protein 100 A (Negative) Urine Glucose (UA) Negative (Negative) mg/dL Urine Ketones Negative (Negative) Urine Blood Moderate A (Negative) Urine Nitrite Positive A (Negative) Urine Bilirubin Negative (Negative) Urine Urobilinogen 0.2 (0.2) mg/dL Ur Leukocyte Esterase Moderate A (Negative) Urine Microscopic RBC 6-10 A (0-5) /HPF Urine Microscopic WBC >100 A (0-5) /HPF Ur Epithelial Cells None Seen (None Seen) /HPF Urine Bacteria Many A (None Seen) /HPF RBC Casts (Auto) 0-2 A (None Seen) /LPF WBC Casts 2-5 (NEGATIVE) /LPF Urine Mucus Few A (NEGATIVE) /HPF Urine Yeast (Budding) Rare A (None Seen) /HPF Urine Culture Reflexed YES (NO) - Progress Progress: improved Progress Note: Patient is a 58-year-old male presents to our ED via EMS for evaluation of nausea and vomiting. Patient had similar symptoms yesterday including abdominal pain. Patient went to an outside hospital, [facility] where he was thoroughly evaluated. Patient had a CT abdomen pelvis which showed no acute findings. Small nonobstructing left renal stone otherwise negative. Dr. Rodriguez personally reviewed the CT results as we obtain them from the outside hospital. Patient was ultimately diagnosed with a UTI. Patient currently on oral antibiotics. Yesterday's CT study was performed with contrast. Patient believes his nausea and vomiting was related to the contrast administration yest erday. Patient reports similar symptoms in the past after exposure to contrast dye. We have updated our allergy profile to include nausea and vomiting when exposed to contrast dye. Of note patient is debilitated. Patient had a stroke at which left him with residual hemiparesis. Additionally patient had an episode of bowel ischemia with subsequent necrosis and involvement of his bladder. Patient now has a urostomy as well as a colostomy. Patient denies pain at this time. He voices no other complaints Portions of this note were created with voice recognition technology. There may be grammatical, spelling, punctuation or sound alike errors 01/23/24 12:08 Counseled pt/family regarding: lab results, diagnosis, need for follow-up, rad results - Departure Departure Disposition: Home Clinical Impression: Nausea and vomiting, Adverse reaction to contrast dye Condition: Fair Critical Care Time: No Referrals: MARQUES GUALLPA MD [Primary Care Provider] - Follow up/PCP as directed Instructions: Nausea and Vomiting, Adult ED Additional Instructions: Discharge/Care Plan MCKAY CHAO was seen on 01/23/24 in the Emergency Room. The patient was counseled regarding Diagnosis,Lab results, Imaging studies, need for follow up and when to return to the Emergency Room. Prescriptions given: Discharge Note I have spoken with the patient and/or caregivers. I have explained the patient's condition, diagnosis and treatment plan based on the information available to me at this time. I have answered the patient's and/or caregiver's questions and addressed any concerns. The patient and/or caregivers have as good understanding of the patient's diagnosis, condition and treatment plan as can be expected at this point. The vital signs have been stable. The patient's condition is stable and appropriate for discharge from the emergency department. The patient will pursue further outpatient evaluation with the primary care physician or other designated or consulting physician as outlined in the discharge instructions. The patient and/or caregivers are agreeable to this plan of care and follow-up instructions have been explained in detail. The patient and/or caregivers have received these instruction. The patient/and or caregivers are aware that any significant change in condition or worsening of symptoms should prompt an immediate return to this or the closest emergency department or call 911. Prescriptions: Ondansetron ODT 4 MG [Zofran Odt 4 mg] 4 mg PO Q6H PRN PRN #10 tablet PRN Reason: Vomiting
[2024-01-23 13:01] LABS: ALBUMIN 4.2 g/dL (3.5-5.0); ANION GAP 13.8 MEQ/L (5-15); BILIRUBIN,TOTAL 0.4 mg/dL (0.2-1.3); Calcium 9.6 mg/dL (8.4-10.2); Creatinine 1 1.03 mg/dL (0.66-1.25); EST GLOMERULAR FILTRATION RATE 84.7 ML/MIN; Potassium 4.4 mmol/L (3.5-5.1); Total Protein 7.4 g/dL (6.3-8.2)
[2024-01-23 13:13] LABS: Appearance Turbid (Clear); Ketones Negative (Negative); Leukocyte Esterase Moderate (Negative); Nitrite Positive (Negative); Ph 6.5 (4.6-8.0); Protein,Urine Dip 100 (Negative); Specific Gravity 1.025 (1.005-1.030); Urobilinogen 0.2 mg/dL (0.2)
[2024-01-23 13:14] LABS: Bacteria Many /HPF (None Seen); Bilirubin Negative (Negative); Blood Moderate (Negative); Epithelial Cells None Seen /HPF (None Seen); Glucose, Urine Negative (Negative); Mucus Few /HPF (NEGATIVE); WBC >100 /HPF (0-5)
[2024-01-23 13:15] LABS: Budding Yeast Rare /HPF (None Seen); RBC Casts 0-2 /LPF (None Seen)
[2024-01-23 14:06] VITALS: BP 149/89; PULSE 63; RESP 16
[2024-01-23 14:35] VITALS: O2SAT 97
[2024-01-23] MEDS ORDERED: Levofloxacin 250MG Tablet ONE (14:36)
[2024-01-23] MEDS: Levofloxacin 250MG Tablet PO ONE (14:37)
== END 2024-01-23 14:58 | disposition home or self-care (01) ==
LOC: ED 11:36
DX: R11.2 Nausea with vomiting, unspecified (principal); T50.8X5A Adverse effect of diagnostic agents, initial encounter; Z79.899 Other long term (current) drug therapy; Z59.82 Transportation insecurity
CPT/HCPCS: 36000; 36415; 80053; 81001; 85025; 87077; 87086; 87186; 93041; 94760; 96374; 99284; J2405; A9270-GY

== ENCOUNTER 2024-06-04 11:24 | Emergency (ER) | payer MEDICARE ==
[2024-06-04 11:34] VITALS: RESP 20; TEMP 97.8
--- NOTE | 2024-06-04 11:51 | ERPHSYRPT ---
- History of Present Illness Time Seen by Provider: 06/04/24 11:36 Source: patient Exam Limitations: no limitations Patient Subjective Stated Complaint: Pt states "I had a hernia surgery on april [address] lott at [place] with mesh placement in my right belly and i am not sure if I did something to it or not but my right belly is hurting allot." Triage Nursing Assessment: Pt presented alert and oriented X 3, skin pwd. Pt able to speak in clear full sentences. Pt grunting with pain. Pt has colostomy, contractures of right arm, bejarano cath placed [employer] Physician History: Patient is a 58-year-old male history of cerebral palsy, currently has a urostomy and a colostomy presents to our ED for evaluation of abdominal pain more so on the right side of his abdomen. Patient states he had a hernia repair using mesh performed in April [address] Lott at [facility]. Patient states since then he has been experiencing intermittent abdominal pain. However patient's current pain is now constant and progressive. Pain described as a generalized ache however tenderness at the right mid abdomen. No trauma no fever. No nausea no vomiting no diarrhea no rash. Symptoms are mild to moderate in intensity. Patient's mother is at the bedside. They voiced no other complaints or concerns at this time. Portions of this note were created with voice recognition technology. There may be grammatical, spelling, punctuation or sound alike errors Timing/Duration: yesterday Severity: moderate Modifying Factors: Improves With: nothing Associated Symptoms: denies symptoms Allergies/Adverse Reactions: diazepam [From Valium] Allergy (Intermediate, Verified 01/23/24 11:39) states "turns me real violent" Penicillins Allergy (Verified 01/23/24 11:39) states "get violent" Iodinated Contrast Media Adverse Reaction (Verified 01/23/24 12:11) Nausea and Vomiting Home Medications: Escitalopram Oxalate [Lexapro] 10 mg PO DAILY 04/11/23 [History] Spironolactone 25 mg [Aldactone 25 MG] 25 mg PO DAILY 08/31/23 [History] Cyanocobalamin (Vitamin B-12) [Vitamin B-12] 1 tab PO DAILY 01/23/24 [History] Hx Tetanus, Diphtheria Vaccination/Date Given: No Hx Influenza Vaccination/Date Given: No Hx Pneumococcal Vaccination/Date Given: No Immunizations Up to Date: No Travel Risk - International Travel Have you traveled outside of the country in past 3 weeks: No - Emerging Infectious Disease Are you exhibiting symptoms associated with any current EIDs: No Symptoms: Abdominal Pain, Vomitting - Review of Systems Constitutional: No Symptoms, No Fever, No Chills Eyes: No Symptoms Ears, Nose, & Throat: No Symptoms Respiratory: No Symptoms, No Cough, No Dyspnea Cardiac: No Symptoms, No Chest Pain, No Edema, No Syncope Abdominal/Gastrointestinal: No Symptoms, No Abdominal Pain, No Nausea, No Vomiting, No Diarrhea Genitourinary Symptoms: No Symptoms, No Dysuria Musculoskeletal: No Symptoms, No Back Pain, No Neck Pain Skin: No Symptoms, No Rash Neurological: No Symptoms, No Dizziness, No Focal Weakness, No Sensory Changes Psychological: No Symptoms Endocrine: No Symptoms Hematologic/Lymphatic: No Symptoms Immunological/Allergic: No Symptoms All Other Systems: Reviewed and Negative - Past Medical History Pertinent Past Medical History: Yes Neurological History: Paralysis, Stroke ENT History: Glaucoma Cardiac History: Arrhythmia, Myocardial Infarction ([place]) Respiratory History: No Pertinent History Endocrine Medical History: No Pertinent History Musculoskeletal History: Arthritis GI Medical History: Esophageal Disorder, GERD, Ulcer History: Other Psycho-Social History: Anxiety, Depression, Panic Disorder Male Reproductive Disorders: Prostate Problems Other Medical History: cerabral palsy, kidney failure, 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 (50 corrective surgeries). hernia surgery Significant Family History: no pertinent family hx - Social History Smoking Status: Never smoker Exposure to second hand smoke: No Drug Use: none Patient Lives Alone: Yes - Social Determinants of Health Will the patient participate in the screening: Yes Do you worry about a steady place to live?: No Do you have any problems with any of the following?: No known problems In the past 12 months,have you had to go without utilities?: No Transportation Issues: Yes Has anyone in your support network made you feel unsafe?: No Have you or anyone in your house had to go without enough: No Comment: wanting help finding transporation - Nursing Vital Signs Nursing Vital Signs: Initial Vital Signs Temperature 97.8 F 06/04/24 11:29 Pulse Rate 75 06/04/24 11:29 Respiratory Rate 20 06/04/24 11:29 Blood Pressure 173/104 06/04/24 11:29 O2 Sat by Pulse Oximetry 95 06/04/24 11:29 Pain Scale Pain Intensity 9 - Physical Exam General Appearance: no apparent distress, alert Eye Exam: PERRL/EOMI, eyes nml inspection Ears, Nose, Throat Exam: normal ENT inspection, moist mucous membranes Neck Exam: normal inspection, full range of motion Respiratory Exam: normal breath sounds, lungs clear, No respiratory distress Cardiovascular Exam: regular rate/rhythm, normal heart sounds, normal peripheral pulses Gastrointestinal/Abdomen Exam: soft, normal bowel sounds, tenderness (Tenderness palpation right mid abdomen. Intact colostomy and urostomy), No mass Back Exam: normal inspection, normal range of motion, No CVA tenderness, No vertebral tenderness Extremity Exam: normal inspection, normal range of motion, pelvis stable Neurologic Exam: alert, oriented x 3, cooperative, normal mood/affect, sensation nml, No motor deficits Skin Exam: normal color, warm, dry, No rash Lymphatic Exam: No adenopathy SpO2 Interpretation: normal SpO2: 95 O2 Delivery: Room Air - Course Nursing assessment & vital signs reviewed: Yes - CT Exams Abdomen/Pelvis CT Interpretation: Tele-radiologist Report (No acute findings) Ordered Tests: Active Orders 24 hr Category Date Time Status IV Insertion STAT Care 06/04/24 11:44 Active ABDOMEN AND PELVIS W/0 CONTRAS [CT] Stat Exams 06/04/24 11:44 Completed CBC W DIFF Stat Lab 06/04/24 11:58 Completed CMP Stat Lab 06/04/24 11:58 Completed CULTURE,URINE Stat Lab 06/04/24 12:10 Received LIPASE Stat Lab 06/04/24 11:58 Completed Manual Differential NC Stat Lab 06/04/24 11:58 Completed TROPONIN Q4H Lab 06/04/24 11:58 Completed TROPONIN Q4H Lab 06/04/24 15:45 Ordered TROPONIN Q4H Lab 06/04/24 19:45 Ordered UA W/RFX UR CULTURE Stat Lab 06/04/24 12:10 Completed Medication Summary Generic Name Dose Route Start Last Admin Trade Name Jonathan PRN Reason Stop Dose Admin Levofloxacin/Dextrose 500 mg in 100 mls @ 100 mls/hr 06/04/24 13:04 06/04/24 13:08 Levofloxacin 500mg/100ml D5w IV 06/04/24 14:03 100 mls/hr STAT STA 100 mls/hr Administration Discontinued Medications Generic Name Dose Route Start Last Admin Trade Name Jonathan PRN Reason Stop Dose Admin Levofloxacin/Dextrose Confirm 06/04/24 13:06 Levofloxacin 500mg/100ml D5w Administered 06/04/24 13:07 Dose 500 mg in 100 mls @ ud IV .STK-MED ONE Morphine Sulfate 2 mg 06/04/24 11:44 06/04/24 12:01 Morphine Sulfate 2 Mg/Ml Inj IV 06/04/24 11:45 2 mg STAT ONE Administration Morphine Sulfate Confirm 06/04/24 12:00 Morphine Sulfate 2 Mg/Ml Inj Administered 06/04/24 12:01 Dose 2 mg .ROUTE .STK-MED ONE Morphine Sulfate 2 mg 06/04/24 13:36 Morphine Sulfate 2 Mg/Ml Inj IV 06/04/24 13:37 STAT ONE Ondansetron HCl 4 mg 06/04/24 11:44 06/04/24 12:01 Ondansetron Hcl 4 Mg/2 Ml Vial IV 06/04/24 11:45 4 mg STAT ONE Administration Ondansetron HCl Confirm 06/04/24 12:00 Ondansetron Hcl 4 Mg/2 Ml Vial Administered 06/04/24 12:01 Dose 4 mg .ROUTE .STK-MED ONE Lab/Rad Data: Laboratory Result Diagrams 06/04/24 11:58 06/04/24 11:58 Laboratory Results 06/04/24 06/04/24 06/04/24 Range/Units 12:10 11:58 11:58 WBC (4.23-9.07) x10^3/uL RBC (4.63-6.08) x10^6/uL Hgb (13.7-17.5) g/dL Hct (40.1-51.0) % MCV (79.0-92.2) fL MCH (25.7-32.2) pg MCHC (32.3-36.5) g/dL RDW (11.6-14.4) % Plt Count (163-337) x10^3/uL MPV (9.4-12.4) fL Gran % (34.0-67.9) % Immature Gran % (Auto) (0.001-0.429) % Nucleat RBC Rel Count (0.00-0.2) % Eos # (Auto) (0.04-0.54) x10^3/uL Immature Gran # (Auto) (0.001-0.031) x10^3u/L Absolute Lymphs (auto) (1.32-3.57) x10^3/uL Absolute Monos (auto) (0.30-0.82) x10^3/uL Absolute Nucleated RBC (0.00-0.012) x10^3u/L Lymphocytes % (21.8-53.1) % Monocytes % (5.3-12.2) % Eosinophils % (0.8-7.0) % Basophils % (0.2-1.2) % Absolute Granulocytes (1.78-5.38) x10^3/uL Basophils # (0.01-0.08) x10^3/uL Sodium 139 (135-145) mmol/L Potassium 4.6 (3.5-5.1) mmol/L Chloride 107 (98-107) mmol/L Carbon Dioxide 22 (22-30) mmol/L Anion Gap 15.7 H (5-15) MEQ/L BUN 18 (9-20) mg/dL Creatinine 0.92 (0.66-1.25) mg/dL Estimated GFR 97.0 ML/MIN Glucose 98 (74-106) mg/dL Calcium 9.2 (8.4-10.2) mg/dL Total Bilirubin 0.80 (0.2-1.3) mg/dL AST 51 (17-59) U/L ALT 32 (0-50) U/L Alkaline Phosphatase 89 (38-126) U/L Troponin I < 0.012 (0.000-0.033) ng/mL Serum Total Protein 8.2 (6.3-8.2) g/dL Albumin 4.8 (3.5-5.0) g/dL Lipase 97 (23-300) U/L Urine Color Yellow (Yellow) Urine Appearance Cloudy A (Clear) Urine pH 7.5 (4.6-8.0) Ur Specific [place] 1.015 (1.005-1.030) Urine Protein 30 (Negative) Urine Glucose (UA) Negative (Negative) mg/dL Urine Ketones Negative (Negative) Urine Blood Trace (Negative) Urine Nitrite Positive A (Negative) Urine Bilirubin Negative (Negative) Urine Urobilinogen 0.2 (0.2) mg/dL Ur Leukocyte Esterase Large A (Negative) U Hyaline Cast (Auto) 6-10 A (0-2) /LPF Urine Microscopic RBC 0-2 (0-5) /HPF Urine Microscopic WBC 51-100 A (0-5) /HPF Ur Epithelial Cells Few (None Seen) /HPF Urine Bacteria Many A (None Seen) /HPF Urine Mucus Moderate A (NEGATIVE) /HPF Urine Culture Reflexed YES (NO) 06/04/24 Range/Units 11:58 WBC 10.8 H (4.23-9.07) x10^3/uL RBC 4.97 (4.63-6.08) x10^6/uL Hgb 14.0 (13.7-17.5) g/dL Hct 43.7 (40.1-51.0) % MCV 87.9 (79.0-92.2) fL MCH 28.2 (25.7-32.2) pg MCHC 32.0 L (32.3-36.5) g/dL RDW 14.2 (11.6-14.4) % Plt Count 230 (163-337) x10^3/uL MPV 12.5 H (9.4-12.4) fL Gran % 72.0 H (34.0-67.9) % Immature Gran % (Auto) 0.4 (0.001-0.429) % Nucleat RBC Rel Count 0.0 (0.00-0.2) % Eos # (Auto) 0.26 (0.04-0.54) x10^3/uL Immature Gran # (Auto) 0.04 H (0.001-0.031) x10^3u/L Absolute Lymphs (auto) 2.01 (1.32-3.57) x10^3/uL Absolute Monos (auto) 0.63 (0.30-0.82) x10^3/uL Absolute Nucleated RBC 0.00 (0.00-0.012) x10^3u/L Lymphocytes % 18.6 L (21.8-53.1) % Monocytes % 5.8 (5.3-12.2) % Eosinophils % 2.4 (0.8-7.0) % Basophils % 0.8 (0.2-1.2) % Absolute Granulocytes 7.79 H (1.78-5.38) x10^3/uL Basophils # 0.09 H (0.01-0.08) x10^3/uL Sodium (135-145) mmol/L Potassium (3.5-5.1) mmol/L Chloride (98-107) mmol/L Carbon Dioxide (22-30) mmol/L Anion Gap (5-15) MEQ/L BUN (9-20) mg/dL Creatinine (0.66-1.25) mg/dL Estimated GFR ML/MIN Glucose (74-106) mg/dL Calcium (8.4-10.2) mg/dL Total Bilirubin (0.2-1.3) mg/dL AST (17-59) U/L ALT (0-50) U/L Alkaline Phosphatase (38-126) U/L Troponin I (0.000-0.033) ng/mL Serum Total Protein (6.3-8.2) g/dL Albumin (3.5-5.0) g/dL Lipase (23-300) U/L Urine Color (Yellow) Urine Appearance (Clear) Urine pH (4.6-8.0) Ur Specific [place] (1.005-1.030) Urine Protein (Negative) Urine Glucose (UA) (Negative) mg/dL Urine Ketones (Negative) Urine Blood (Negative) Urine Nitrite (Negative) Urine Bilirubin (Negative) Urine Urobilinogen (0.2) mg/dL Ur Leukocyte Esterase (Negative) U Hyaline Cast (Auto) (0-2) /LPF Urine Microscopic RBC (0-5) /HPF Urine Microscopic WBC (0-5) /HPF Ur Epithelial Cells (None Seen) /HPF Urine Bacteria (None Seen) /HPF Urine Mucus (NEGATIVE) /HPF Urine Culture Reflexed (NO) - Progress Progress: improved Progress Note: Patient is a 58-year-old male history of CP currently with a urostomy and a colostomy presents to our ED with right-sided abdominal pain. Physical exam reveals some tenderness of the right mid abdomen area. No fever UA reveals urinary tract infection. Laboratory workup reveals a slight leukocytosis of 10. CT abdomen pelvis otherwise negative. Patient received a dose of Levaquin in our ED. A prescription for ciprofloxacin forwarded to patient's pharmacy. Patient received morphine for pain control. Patient reassessed. Pain significantly improved. Mother at bedside. They voiced her ready for discharge. They agree to follow-up with primary care doctor within 48 hours for reevaluation. Portions of this note were created with voice recognition technology. There may be grammatical, spelling, punctuation or sound alike errors Complexity of problem addressed is moderate acute complicated. No critical care time. Complex of data reviewed and analyzed is moderate. Test ordered test reviewed results analyzed and correlated clinically with history and physical exam. Risk of complication at or risk of morbidity/mortality of patient management is moderate. A prescription for ciprofloxacin forwarded to patient's pharmacy. Vital stable. Time spent to discharge patient is approximately 15 minutes. Plan of care established for shared decision making. No social dete rminants of health present to impede follow-up. Portions of this note were created with voice recognition technology. There may be grammatical, spelling, punctuation or sound alike errors 06/04/24 13:40 Counseled pt/family regarding: lab results, diagnosis, rad results - Departure Departure Disposition: Home Clinical Impression: UTI (urinary tract infection) Condition: Stable Critical Care Time: No Referrals: MARQUES GUALLPA MD [Primary Care Provider] - Follow up/PCP as directed Additional Instructions: Discharge/Care Plan MCKAY CHAO was seen on 06/04/24 in the Emergency Room. The patient was counseled regarding Diagnosis,Lab results, Imaging studies, need for follow up and when to return to the Emergency Room. Prescriptions given: Discharge Note I have spoken with the patient and/or caregivers. I have explained the patient's condition, diagnosis and treatment plan based on the information available to me at this time. I have answered the patient's and/or caregiver's questions and addressed any concerns. The patient and/or caregivers have as good understanding of the patient's diagnosis, condition and treatment plan as can be expected at this point. The vital signs have been stable. The patient's condition is stable and appropriate for discharge from the emergency department. The patient will pursue further outpatient evaluation with the primary care physician or other designated or consulting physician as outlined in the discharge instructions. The patient and/or caregivers are agreeable to this plan of care and follow-up instructions have been explained in detail. The patient and/or caregivers have received these instruction. The patient/and or caregivers are aware that any significant change in condition or worsening of symptoms should prompt an immediate return to this or the closest emergency department or call 911. Prescriptions: Ciprofloxacin [Cipro 500 MG] 500 mg PO BID 7 Days #14 tablet
[2024-06-04 11:59] LABS: Absolute Neutrophil Ct (ANC) 7.79 x10^3/uL (1.78-5.38); BASOPHIL % 0.8 % (0.2-1.2); Basophil (Absolute #) 0.09 x10^3/uL (0.01-0.08); Eosinophil % 2.4 % (0.8-7.0); Eosinophil (Absolute #) 0.26 x10^3/uL (0.04-0.54); Hematocrit 43.7 % (40.1-51.0); IMMATURE GRAN # 0.04 x10^3u/L (0.001-0.031); IMMATURE GRAN % 0.4 % (0.001-0.429); Lymphocyte (Absolute #) 2.01 x10^3/uL (1.32-3.57); Lymphocytes % 18.6 % (21.8-53.1); Mean Cell Volume 87.9 fL (79.0-92.2); Mean Corpuscular Hemoglobin 28.2 pg (25.7-32.2); Mean Platelet Volume 12.5 fL (9.4-12.4); Monocyte (Absolute #) 0.63 x10^3/uL (0.30-0.82); Monocytes % 5.8 % (5.3-12.2); Platelet Count 230 x10^3/uL (163-337); Red Blood Count 4.97 x10^6/uL (4.63-6.08); Red Cell Distribution Width 14.2 % (11.6-14.4); White Blood Count 10.8 x10^3/uL (4.23-9.07)
[2024-06-04] MEDS ORDERED: MORPHINE SULFATE 2 MG INJ ONE ×2 (12:00→13:47)
[2024-06-04] MEDS ORDERED: Zofran 4 MG/2 ML VIAL ONE (12:00)
[2024-06-04] MEDS: MORPHINE SULFATE 2 MG INJ IV ONE ×2 (12:01→13:48)
[2024-06-04] MEDS: Zofran 4 MG/2 ML VIAL IV ONE (12:01)
[2024-06-04 12:16] LABS: ALBUMIN 4.8 g/dL (3.5-5.0); ANION GAP 15.7 MEQ/L (5-15); BILIRUBIN,TOTAL 0.8 mg/dL (0.2-1.3); Calcium 9.2 mg/dL (8.4-10.2); Creatinine 1 0.92 mg/dL (0.66-1.25); Potassium 4.6 mmol/L (3.5-5.1); Total Protein 8.2 g/dL (6.3-8.2)
[2024-06-04 12:34] LABS: Appearance Cloudy (Clear); Bacteria Many /HPF (None Seen); Bilirubin Negative (Negative); Blood Trace (Negative); Epithelial Cells Few /HPF (None Seen); Glucose, Urine Negative (Negative); Ketones Negative (Negative); Leukocyte Esterase Large (Negative); Mucus Moderate /HPF (NEGATIVE); Nitrite Positive (Negative); Ph 7.5 (4.6-8.0); Protein,Urine Dip 30 (Negative); RBC 0-2 /HPF (0-5); Specific Gravity 1.015 (1.005-1.030); Urobilinogen 0.2 mg/dL (0.2); WBC 51-100 /HPF (0-5)
[2024-06-04] MEDS ORDERED: Levofloxacin 500MG/100ML D5W 500 MG/100 ML BAG IV ONE (13:06)
[2024-06-04] MEDS: Levofloxacin 500MG/100ML D5W 500 MG/100 ML BAG IV STA (13:08)
--- NOTE | 2024-06-04 13:25 | XRAY ---
Indication: Abdominal pain. Multiple contiguous axial images obtained through the abdomen and pelvis without contrast. Comparison: August 31, 2023 Lung bases now demonstrates bilateral dependent atelectasis. No infiltrate or effusion. Heart not enlarged. Noncontrasted stomach and bowel loops nonobstructed. Normal appendix. Again left midabdomen colostomy, left lower quadrant urostomy, and total cystectomy. Stable 2 nonobstructing left renal punctate calculi. No free fluid/air. Remaining liver, gallbladder, pancreas, spleen, adrenal glands, kidneys, ureters, and aorta are unremarkable for noncontrast exam. 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 Impression: 1. Stable total cystectomy, left abdominal colostomy/urostomy, nonobstructing left renal micro-calculi, and chronic bony findings. 2. Remaining CT abdomen/pelvis without contrast exam continues to be negative.
[2024-06-04 14:03] VITALS: BP 147/95; PULSE 73; O2SAT 97
== END 2024-06-04 14:19 | disposition home or self-care (01) ==
LOC: ED 11:24
DX: N39.0 Urinary tract infection, site not specified (principal); R10.9 Unspecified abdominal pain; Z79.899 Other long term (current) drug therapy; Z93.3 Colostomy status; Z93.6 Other artificial openings of urinary tract status
CPT/HCPCS: 36415; 74176; 80053; 81001; 83690; 84484; 85025; 87077; 87086; 87186; 96365; 96374; 96375; 96376; 99284; J1956; J2270; J2405